=== PATIENT | female | born 1950 | race Caucasian/White ===

== ENCOUNTER 2023-10-25 16:01 | Inpatient (IN) | payer MEDICARE, SELFPAY ==
[2023-10-25] VITALS (23 sets, daily range): BP systolic 111–124; BP diastolic 61–76; PULSE 80–94; RESP 15–29; TEMP 36.8–37.1; O2SAT 84–97; BMI 26.3; BMI 26.6
--- NOTE | 2023-10-25 16:35 | ECG_ITS ---
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
--- NOTE | 2023-10-25 16:37 | ED_ITS ---
HPI - General Adult General Chief complaint: Altered Mental Status Stated complaint: Abnormal Labs Time Seen by Provider: 10/25/23 16:03 Source: family Mode of arrival: walk-in Limitations: altered mental status History of Present Illness HPI narrative: Patient is a 73-year-old female who presents to the emergency department with her for the evaluation of a 2-week history of illness. Both the patient and her provide the history. Patient's states she has been intermittently confused, no falls or injuries, no syncope. She is able to answer all questions at initial interview. She has not had any persistent vomiting but at the beginning of course of illness she did have some vomiting and thought she may have norovirus. Her PCP tested her for that and it was negative. She has also been tested for COVID and it was negative. She reports intermittent fevers as high as 100.9 Fahrenheit at home. She had outpatient labs done this morning with [facility] in her PCP office, they were instructed to come to the emergency department. Patient has not had any chest pain although she states she has had some difficulty breathing. She has had no leg swelling, hemoptysis, severe or upper respiratory symptoms or urinary symptoms. She states she feels achy everywhere and has generalized body pain. Related Data Allergies Allergy/AdvReac Type Severity Reaction Status Date / Time ivp dye Allergy Uncoded 10/25/23 16:23 latex Allergy Uncoded 10/25/23 16:23 Review of Systems ROS Constitutional Reports: fever; Denies: chills Eyes Denies: change in vision Ears, nose, mouth, and throat Denies: throat pain or nasal congestion Cardiovascular Denies: chest pain Respiratory Reports: shortness of breath; Denies: cough Gastrointestinal Reports: nausea and vomiting; Denies: abdominal pain or diarrhea Genitourinary Denies: painful urination Musculoskeletal Denies: back pain or neck pain Integumentary/Breast Denies: rash Neurological Denies: headache Hematologic/Lymphatic Denies: easy bruising or easy bleeding [facility] Medical History (Updated 10/25/23 @ 19:30 by DAMIEN Sanabria) High cholesterol ?E78.00 - Pure hypercholesterolemia, unspecified (ICD-10) Arthritis ?M19.90 - Unspecified osteoarthritis, unspecified site (ICD-10) IBS (irritable bowel syndrome) ?K58.9 - Irritable bowel syndrome without diarrhea (ICD-10) Shingles ?B02.9 - Zoster without complications (ICD-10) Social History Smoking status: Never smoker Exam Narrative Exam Narrative: Gen.: Awake, alert, in no distress Head: Normocephalic, atraumatic ENT: Moist mucous membranes Respiratory: No respiratory distress, lungs clear bilaterally Cardio: Regular rate and rhythm Gastrointestinal: Abdomen is soft, nondistended and nontender to palpation Extremities: Moves extremities equally, no pedal edema Psych: Normal mood and affect Neuro: No focal neuro deficit Skin: Warm, dry, intact Constitutional Vital Signs, click to edit/add: Last Vital Signs Temp 98.7 F 10/25/23 16:12 Pulse 83 10/25/23 17:50 Resp 20 10/25/23 18:50 BP 123/71 10/25/23 18:04 Pulse Ox 95 10/25/23 18:50 O2 Del Method Room Air 10/25/23 16:12 Course Vital Signs Vital signs: Vital Signs Temperature 98.7 F 10/25/23 16:12 Pulse Rate 83 10/25/23 16:12 Respiratory Rate 16 10/25/23 16:12 Blood Pressure 119/61 10/25/23 16:12 Pulse Oximetry 97 10/25/23 16:12 Oxygen Delivery Method Room Air 10/25/23 16:12 Temperature 98.7 F 10/25/23 16:12 Pulse Rate 83 10/25/23 17:50 Respiratory Rate 20 10/25/23 18:50 Blood Pressure 123/71 10/25/23 18:04 Pulse Oximetry 95 10/25/23 18:50 Oxygen Delivery Method Room Air 10/25/23 16:12 Medical Decision Making MDM Narrative Medical decision making narrative: Lab studies show the patient has elevated white blood cell count, elevated CRP and sed rates, low sodium and potassium with normal lactic acid and urine specimen. CT of the brain and chest x-ray are unremarkable. Patient with blood cultures obtained, respiratory panel is negative. Patient with stable vital signs in the ER. She is admitted for antibiotics until blood cultures result in addition to IV fluids and potassium correction. I discussed with Dr. Hilton For admission. Patient admitted for observation. Stable at time of admission. Medical Records Medical records reviewed: Yes I reviewed the patient's medical records Lab Data Lab results reviewed: Yes I reviewed the patient's lab results Labs: Lab Results 10/25/23 10/25/23 10/25/23 Range/Units 16:50 16:52 17:57 WBC 19.5 H (4.0-11.0) 10^3/uL RBC 4.32 (4.20-5.40) 10^6/uL Hgb 13.3 (12.0-16.0) g/dL Hct 38.9 (36.0-48.0) % MCV 90.0 (81.0-99.0) fL MCH 30.8 (26.7-34.0) pg MCHC 34.2 (29.9-35.2) g/dL RDW 13.7 (11.0-15.0) % Plt Count 270 (150-450) 10^3/uL MPV 9.4 L (9.5-13.5) fL Neut % (Auto) 84.0 H (43.0-75.0) % Lymph % (Auto) 6.9 L (20.5-60.0) % Conway % (Auto) 5.9 (1.7-12.0) % Eos % (Auto) 0.4 L (0.9-7.0) % Baso % (Auto) 0.5 (0.2-2.0) % Neut # (Auto) 16.4 H (1.4-6.5) 10^3/uL Lymph # (Auto) 1.3 (1.2-3.8) 10^3/uL Conway # (Auto) 1.2 H (0.3-0.8) 10^3/uL Eos # (Auto) 0.1 (0.0-0.7) 10^3/uL Baso # (Auto) 0.1 (0.0-0.1) 10^3/uL Abs Immat Gran (auto) 0.44 H (0.00-0.03) 10^3/uL Imm/Tot Granulo (auto) 2.3 H (0.0-0.5) % ESR >130 H (<=30) mm/hr PT 12.6 H (9.0-11.6) sec INR 1.20 VBG pH 7.496 H (7.330-7.430) VBG pCO2 34.8 L (40.0-52.0) mmHg Sodium 127 L (136-145) mmol/L Potassium 2.7 L* (3.5-5.1) mmol/L Chloride 90 L (98-107) mmol/L Carbon Dioxide 27.2 (21.0-32.0) mmol/L Anion Gap 12.5 BUN 13.0 (7.0-18.0) mg/dL Creatinine 0.87 (0.55-1.02) mg/dL Est GFR ( Amer) >60 (>=60) Est GFR (Non-Af Amer) >60 (>=60) BUN/Creatinine Ratio 14.9 Glucose 105 (74-106) mg/dL Lactate 1.3 (0.4-2.0) mmol/L Calcium 8.6 (8.5-10.1) mg/dL Magnesium 2.1 (1.8-2.4) mg/dL Total Bilirubin 2.4 H (0.2-1.0) mg/dL AST 46 H (15-37) U/L ALT 70 H (14-59) U/L Alkaline Phosphatase 220 H (46-116) U/L Troponin I High Sens <4.0 L (4.0-51.3) pg/mL C-Reactive Protein 39.98 H (<=0.50) mg/dL Total Protein 7.2 (6.4-8.2) g/dL Albumin 2.3 L (3.4-5.0) g/dL Globulin 4.9 g/dL Albumin/Globulin Ratio 0.5 TSH 2.369 (0.358-3.740) uIU/mL Urine Color Yellow (YELLOW) Urine Clarity Clear (CLEAR) Urine pH 5.5 (5.0-9.0) Ur Specific [place] 1.010 (1.005-1.025) Urine Protein Negative (NEG/TRACE) mg/dL Urine Glucose (UA) Negative (NEGATIVE) mg/dL Urine Ketones 15 A (NEGATIVE) mg/dL Urine Occult Blood Trace-i (NEGATIVE) Urine Nitrite Negative (NEGATIVE) Urine Bilirubin Negative (NEGATIVE) Urine Urobilinogen 1.0 (0.2-1.0) EU/dL Ur Leukocyte Esterase Negative (NEGATIVE) Urine RBC 0-2 (0-2) #/HPF Urine WBC 0-2 A (NONE SEEN) #/HPF Ur Squamous Epith Cells Few A (NONE/RARE) #/LPF Ur Transition Epith Cell Rare A (NONE SEEN) #/LPF Urine Crystals None seen (None Seen) #/HPF Urine Bacteria None seen (NONE SEEN) #/HPF Urine Casts None seen (NONE SEEN) #/LPF Urine Mucus Trace A (NONE SEEN) Adenovirus (PCR) Not detected (NOT DETECTE) C. pneumoniae DNA (PCR) Not detected (NOT DETECTE) Coronavirus Type OC43 Not detected (NOT DETECTE) Coronavirus Type HKU1 Not detected (NOT DETECTE) Coronavirus Type 229E Not detected (NOT DETECTE) Coronavirus Type NL63 Not detected (NOT DETECTE) Human Metapneumovir PCR Not detected (NOT DETECTE) M. pneumoniae (PCR) Not detected (NOT DETECTE) Parainfluenza PCR Not detected (NOT DETECTE) Parainfluenza 2 (PCR) Not detected (NOT DETECTE) Parainfluenza 3 (PCR) Not detected (NOT DETECTE) Parainfluenza 4 (PCR) Not detected (NOT DETECTE) RSV Antigen Not detected (NOT DETECTE) RSV (RT-PCR) Not detected (NOT DETECTE) Entero/Rhino (PCR) Not detected (NOT DETECTE) SARS-CoV-2 (PCR) Not detected (NOT DETECTE) Bordetella pertussis (PCR) Not detected (NOT DETECTE) B parapertussis DNA PCR Not detected (NOT DETECTE) Influenza Type A (PCR) Not detected (NOT DETECTE) Influenza Type B (PCR) Not detected (NOT DETECTE) Imaging Data CT scan - head: Attestation: I have reviewed the pertinent imaging results. Radiologist's impression: ITS Impressions Chest X-Ray 10/25/23 17:10 IMPRESSION: No acute pulmonary disease. Electronically authenticated by: SAYRA PAYNE Date: 10/25/2023 17:[address] 10/25/23 17:10 IMPRESSION: No CT evidence of acute intracranial abnormality. If there is clinical concern for acute brain parenchymal pathology, consider MRI for further evaluation. Mild cerebral volume loss. Electronically authenticated by: ARIADNA LUCAS Date: 10/25/2023 17:31 ECG Data Attestation: I personally reviewed and interpreted this ECG as follows: (Normal sinus rhythm at a rate of 87, minimal ST depression with no acute ST elevation or ectopy. EKG reviewed by attending physician) Discharge Plan Discharge Chief Complaint: Altered Mental Status Patient Disposition: Admitted as Observation Time of Disposition Decision: 19:30 Referrals: ISABEL CRYSTAL [Primary Care Provider] - 1 week
[2023-10-25] MEDS: 0.9 % SODIUM CHLORIDE 1,000 ML 1000 ML IV (16:54)
[2023-10-25 17:09] LABS: Basophils Absolute Auto 0.1 10^3/uL (0.0-0.1); Basophils Percent Auto 0.5 % (0.2-2.0); Eosinophils Absolute Auto 0.1 10^3/uL (0.0-0.7); Eosinophils Percent Auto 0.4 % (0.9-7.0); Hematocrit 38.9 % (36.0-48.0); Hemoglobin 13.3 g/dL (12.0-16.0); Immature Granulocytes Abs Auto 0.44 10^3/uL (0.00-0.03); Immature Granulocytes Pct Auto 2.3 % (0.0-0.5); Lymphocytes Absolute Auto 1.3 10^3/uL (1.2-3.8); Lymphocytes Percent Auto 6.9 % (20.5-60.0); Mean Corpuscular HGB Conc 34.2 g/dL (29.9-35.2); Mean Corpuscular Hemoglobin 30.8 pg (26.7-34.0); Mean Platelet Volume 9.4 fL (9.5-13.5); Monocytes Absolute Auto 1.2 10^3/uL (0.3-0.8); Monocytes Percent Auto 5.9 % (1.7-12.0); Neutrophils Absolute Auto 16.4 10^3/uL (1.4-6.5); Platelet Count 270 10^3/uL (150-450); Red Blood Count 4.32 10^6/uL (4.20-5.40); Red Cell Distribution Width 13.7 % (11.0-15.0); White Blood Count 19.5 10^3/uL (4.0-11.0)
--- NOTE | 2023-10-25 17:10 | XR_ITS ---
The [address] [address] Patient Name: DIVYA ARRIAGA MRN: [id number] date: 1950 Sex: F Assigned Patient Location: ER Current Patient Location: Accession/Order Number: [id number] Exam Date: 10/25/2023 17:00 Report Date: 10/25/2023 17:35 At the request of: HANNAH TROY Procedure: XR chest 1V EXAM: XR chest 1V TECHNIQUE: Single AP view chest HISTORY: Altered COMPARISON: None. FINDINGS: The heart and mediastinum are unremarkable. There is linear atelectasis and/or scarring the left lower lung field. No acute consolidation. Degenerative changes are seen of the thoracic spine. XR/XR chest 1V IMPRESSION: No acute pulmonary disease. Electronically authenticated by: SAYRA PAYNE Date: 10/25/2023 17:35
--- NOTE | 2023-10-25 17:10 | CT_ITS ---
The [address] [address] Patient Name: DIVYA ARRIAGA MRN: [id number] date: 1950 Sex: F Assigned Patient Location: ER Current Patient Location: ER Accession/Order Number: [id number] Exam Date: 10/25/2023 17:00 Report Date: 10/25/2023 17:31 At the request of: HANNAH TROY Procedure: CT head/brain wo con EXAM: CT head/brain wo con HISTORY: Altered mental status. COMPARISON: None. TECHNIQUE: Axial CT scans through the head were obtained without IV contrast administration. Dose reduction techniques were achieved by using: automated exposure control and/or adjustment of mA and /or kV according to patient size and/or use of iterative reconstruction technique. FINDINGS: There is no evidence of acute intracranial hemorrhage or abnormal extra-axial fluid collection. No mass effect or midline shift is seen. There is no evidence of large acute territorial infarction. There is no hydrocephalus. Mild enlarged cortical sulci, consistent with age appropriate cerebral atrophy. To the limit of CT, the posterior fossa appears unremarkable. No definite acute fracture is identified. Soft tissues are unremarkable. The visualized orbits show no abnormality. The visualized paranasal sinuses show no air-fluid level. Mastoid air cells are clear. CT/CT head/brain wo con IMPRESSION: No CT evidence of acute intracranial abnormality. If there is clinical concern for acute brain parenchymal pathology, consider MRI for further evaluation. Mild cerebral volume loss. Electronically authenticated by: ARIADNA LUCAS Date: 10/25/2023 17:31
[2023-10-25 17:16] LABS: pH VBG 7.496 (7.330-7.430)
[2023-10-25 17:17] LABS: PCO2 VBG 34.8 mmHg (40.0-52.0)
[2023-10-25 17:20] LABS: Internal Control Within Normal Limits; Respiratory Syncytial Virus Not Detected (NOT DETECTE)
[2023-10-25 17:20] LABS: Erythrocyte Sedimentation Rate >130 mm/hr (<=30); Prothrombin Time 12.6 sec (9.0-11.6)
[2023-10-25 17:25] LABS: Lactate/Lactic Acid 1.3 mmol/L (0.4-2.0)
[2023-10-25 17:25] LABS: Adenovirus NOT DETECTED (NOT DETECTE); Bordetella parapertussis NOT DETECTED (NOT DETECTE); Coronavirus 229E NOT DETECTED (NOT DETECTE); Coronavirus HKU1 NOT DETECTED (NOT DETECTE); Coronavirus NL63 NOT DETECTED (NOT DETECTE); Coronavirus OC43 NOT DETECTED (NOT DETECTE); Human Metapneumovirus NOT DETECTED (NOT DETECTE); Human Rhinovirus/Enterovirus NOT DETECTED (NOT DETECTE); Influenza A NOT DETECTED (NOT DETECTE); Influenza B NOT DETECTED (NOT DETECTE); Mycoplasma pneumoniae NOT DETECTED (NOT DETECTE); Parainfluenza Virus 1 NOT DETECTED (NOT DETECTE); Parainfluenza Virus 2 NOT DETECTED (NOT DETECTE); Parainfluenza Virus 3 NOT DETECTED (NOT DETECTE); Parainfluenza Virus 4 NOT DETECTED (NOT DETECTE); Respiratory Syncytial Virus NOT DETECTED (NOT DETECTE); SARS-CoV-2 NOT DETECTED (NOT DETECTE)
[2023-10-25 17:26] LABS: Alanine Aminotransferase 70 U/L (14-59); Albumin Globulin Ratio 0.5; Albumin Level 2.3 g/dL (3.4-5.0); Alkaline Phosphatase 220 U/L (46-116); Anion Gap 12.5; Aspartate Amino Transferase 46 U/L (15-37); BUN Creatinine Ratio 14.9; Bilirubin Total 2.4 mg/dL (0.2-1.0); Calcium 8.6 mg/dL (8.5-10.1); Carbon Dioxide 27.2 mmol/L (21.0-32.0); Chloride 90 mmol/L (98-107); Estimated GFR (African America >60 (>=60); Estimated GFR (Non-African Ame >60 (>=60); Globulin 4.9 g/dL; Glucose 105 mg/dL (74-106); Magnesium 2.1 mg/dL (1.8-2.4); Sodium 127 mmol/L (136-145); Total Protein 7.2 g/dL (6.4-8.2)
[2023-10-25 17:31] LABS: Thyroid Stimulating Hormone 2.369 uIU/mL (0.358-3.740)
[2023-10-25 17:40] LABS: Potassium 2.7 mmol/L (3.5-5.1)
[2023-10-25 17:41] LABS: Troponin I High Sensitivity <4.0 pg/mL (4.0-51.3)
[2023-10-25 18:28] LABS: Bilirubin Urine NEGATIVE (NEGATIVE); Blood Urine TRACE-I (NEGATIVE); Clarity Urine CLEAR (CLEAR); Color Urine YELLOW (YELLOW); Glucose Urine UA NEGATIVE (NEGATIVE); Ketones Urine 15 mg/dL (NEGATIVE); Leukocyte Esterase Urine NEGATIVE (NEGATIVE); Nitrite Urine NEGATIVE (NEGATIVE); Protein Urine NEGATIVE (NEG/TRACE); pH Urine 5.5 (5.0-9.0)
[2023-10-25] MEDS: POTASSIUM BICARBONATE/CIT 25 MEQ TABLET EFF 50 MEQ PO (18:30)
[2023-10-25 18:32] LABS: Urine Microscopic Indicated YES
[2023-10-25 18:34] LABS: C Reactive Protein 39.98 mg/dL (<=0.50)
[2023-10-25 18:40] LABS: Bacteria Urine NONE SEEN #/HPF (NONE SEEN); Cast Seen? NONE SEEN #/LPF (NONE SEEN); Crystals Seen? None Seen #/HPF (None Seen); Mucus Urine TRACE (NONE SEEN); RBC Urine 0-2 #/HPF (0-2); Squamous Epithelial Cell Urine FEW #/LPF (NONE/RARE); Transitional Epi Cells Urine RARE #/LPF (NONE SEEN); WBC Urine 0-2 #/HPF (NONE SEEN)
[2023-10-25] MEDS: CEFTRIAXONE 1,000 MG in 0.9 % SODIUM CHLORIDE 50 ML 100 MG IV (19:17)
[2023-10-25] MEDS: POTASSIUM CHLORIDE IN 0.9%NACL 1,000 ML 250 MEQ IV (19:54)
[2023-10-26] VITALS (13 sets, daily range): BP systolic 115–134; BP diastolic 66–72; PULSE 74–100; RESP 16–20; TEMP 36.7–37.1; O2SAT 92–95
[2023-10-26] MEDS: ROPINIROLE HCL 1 MG TABLET 2 MG PO ×2 (01:46→22:47)
[2023-10-26] MEDS: MELOXICAM 7.5 MG TABLET 15 MG PO (01:46)
[2023-10-26] MEDS: ATORVASTATIN CALCIUM 20 MG TABLET PO (01:46)
[2023-10-26] MEDS: 0.9 % SODIUM CHLORIDE 1,000 ML 100 ML IV ×3 (01:47→22:46)
[2023-10-26 04:53] LABS: Basophils Absolute Auto 0.1 10^3/uL (0.0-0.1); Basophils Percent Auto 0.3 % (0.2-2.0); Eosinophils Absolute Auto 0.2 10^3/uL (0.0-0.7); Eosinophils Percent Auto 0.9 % (0.9-7.0); Hematocrit 32.9 % (36.0-48.0); Immature Granulocytes Abs Auto 0.38 10^3/uL (0.00-0.03); Lymphocytes Absolute Auto 1.1 10^3/uL (1.2-3.8); Mean Corpuscular HGB Conc 33.4 g/dL (29.9-35.2); Mean Corpuscular Hemoglobin 30.6 pg (26.7-34.0); Mean Corpuscular Volume 91.4 fL (81.0-99.0); Mean Platelet Volume 9.3 fL (9.5-13.5); Monocytes Absolute Auto 1.3 10^3/uL (0.3-0.8); Monocytes Percent Auto 6.8 % (1.7-12.0); Neutrophils Absolute Auto 15.6 10^3/uL (1.4-6.5); Platelet Count 245 10^3/uL (150-450); Red Cell Distribution Width 14.1 % (11.0-15.0); White Blood Count 18.6 10^3/uL (4.0-11.0)
[2023-10-26 05:25] LABS: PROCALCITONIN 1.39 ng/mL (0.00-0.50)
[2023-10-26 05:29] LABS: Alanine Aminotransferase 65 U/L (14-59); Albumin Globulin Ratio 0.4; Albumin Level 1.6 g/dL (3.4-5.0); Alkaline Phosphatase 179 U/L (46-116); Anion Gap 10.4; Aspartate Amino Transferase 52 U/L (15-37); BUN Creatinine Ratio 15.5; Bilirubin Total 1.7 mg/dL (0.2-1.0); Calcium 7.8 mg/dL (8.5-10.1); Carbon Dioxide 22.5 mmol/L (21.0-32.0); Chloride 100 mmol/L (98-107); Estimated GFR (African America >60 (>=60); Estimated GFR (Non-African Ame >60 (>=60); Glucose 89 mg/dL (74-106); Potassium 3.9 mmol/L (3.5-5.1); Sodium 129 mmol/L (136-145); Total Protein 5.6 g/dL (6.4-8.2)
[2023-10-26] MEDS: DICYCLOMINE HCL 10 MG CAPSULE PO ×2 (10:07→22:46)
[2023-10-26] MEDS: OMEPRAZOLE 40 MG CAPSULE.DR PO (10:07)
[2023-10-26] MEDS: DULOXETINE HCL 30 MG CAPSULE.DR PO ×2 (10:07→22:46)
--- NOTE | 2023-10-26 10:56 | CT_ITS ---
The [address] [address] Patient Name: DIVYA ARRIAGA MRN: [id number] date: 1950 Sex: F Assigned Patient Location: MS Current Patient Location: [place] Accession/Order Number: [id number] Exam Date: 10/26/2023 12:30 Report Date: 10/26/2023 13:26 At the request of: JEANNETTE COLBERT Procedure: CT abdomen pelvis wo con EXAM: CT abdomen pelvis wo con HISTORY: Transaminitis/leukocytosis/diarrhea COMPARISON: No prior CT. Chest x-ray 10/25/2023. TECHNIQUE: CT abdomen pelvis without IV contrast. Water soluble oral contrast given. FINDINGS: Lower chest: Small amount of airspace density pleural density lower chest bilaterally most consistent with areas of atelectasis and either pleural thickening or small effusions. Not well demonstrated on x-ray. ABDOMEN: Large mass left lobe of the liver producing convex margin anteriorly which are 6.4 cm transverse 4.5 cm AP diameter. Color lesion dome of the liver centrally 1.7 cm. Other lesions not excluded on this noncontrast study. Normal-appearing fluid-filled gallbladder. No biliary dilatation. Normal-appearing adrenal glands, pancreas spleen. Accessory splenic tissue medially No ascites or free fluid. Small periaortic lymph nodes without adenopathy. No mesenteric mass. Normal noncontrast appearance kidneys without mass or hydronephrosis or calcification Stomach appears prominent contains significant retained oral contrast with findings suggesting thickening of the distal body/antrum. Mass lesion in this area not excluded. Oral contrast without of the stomach seen throughout the small bowel without dilatation. Contrast within the colon to the left lower quadrant. Mild colonic wall thickening is nonspecific but can be seen with colitis. No pericolonic fluid or stranding. Diverticulosis involving the pelvic colon with questionable mild adjacent stranding/inflammation. Bowel wall appears to be quite thickened throughout the pelvic colon. No extraluminal gas or fluid, no pneumatosis. Normal diameter appendix right lower quadrant without surrounding inflammation. Pelvis:: Findings as noted above. No free fluid. No uterine or adnexal pathology. Minimal amount of fluid in the bladder. MUSCULOSKELETAL: Diffuse degenerative disc disease lower thoracic and lumbar spine without focal bone lesion. There are facet degenerative joint disease especially L5-S1. Anterolisthesis L5 without pars defects felt to be degenerative. CT/CT abdomen pelvis wo con IMPRESSION: 1. Liver lesions including a dominant lesion left lobe 6.4 cm maximum and a small lesion dome of the liver. Indeterminate on this noncontrast study. Differential diagnosis includes metastasis, benign lesion such as hemangiomas or primary liver malignancy. Patient is allergic to IV contrast so contrast-enhanced CT involves some risk. Recommend ultrasound evaluation possibly MRI. Ultimately lesion may need to undergo image guided biopsy unless hemangiomas or other benign lesion felt to be present. 2. Colon abnormalities with bowel wall thickening which may reflect colitis although is nonspecific. Abnormalities in the pelvic colon could reflect diverticulitis. Bowel wall does appear to be thickened diffusely. 3. Significant retained oral contrast within the stomach with possible wall thickening distal body and antrum. Could also be due to peristalsis. Consider upper endoscopy. Electronically authenticated by: CHARITY DE LUNA Date: 10/26/2023 13:26
--- NOTE | 2023-10-26 10:59 | CM.NOTE ---
Rounds made with Dr. Camara. Awaiting further plan of care with MARCI Fonseca and results from further testing.
--- NOTE | 2023-10-26 11:01 | CM.NOTE ---
Medicare Outpatient Observation Notice reviewed and signed by Twila. No questions offered. Copy to chart, original to Ms. Ceballos.
[2023-10-26 11:43] LABS: Ammonia <10 umol/L (11-32)
--- NOTE | 2023-10-26 12:37 | P.HP_ITS ---
<Statement entered by Gopi Camara MD - 10/26/23 19:05> This documentation has been reviewed and approved. Was seen and evaluated this morning. Patient was resting comfortably at the time. No significant complaints. Agree with input and findings by nurse practitioner Additional diagnosis would include anemia. Possibly delusional-possible acute blood loss-May need to check stool for occult blood. Also check stool samples for possible infectious etiology. Agree with changing patient to inpatient status since medically necessary treatment will span 2 midnights.. H&P: HPI History of Present Illness Chief complaint: Abnormal Labs, Dehydration, Hypokalemia Narrative: 10/26/23 1100 This is a 73-year-old female patient with a past medical history as outlined below including hyperlipidemia, IBS, GERD, depression, and arthritis; who presented to the ED last night on the advice of her PCP after outpatient labs were abnormal. The patient reports a 2-week course of not feeling well. She notes initially she was having frequent formed stools and 1 small episode of emesis. She then developed a very poor appetite and had frequent chills. Her temperature cassidy to 100.9 during the last week but her fever has been intermittent. She has noted that her stool is yellowish but not floaty or having a foul odor. She had diarrhea x 1 two days ago, but otherwise denies diarrhea. She also reports intermittent right upper quadrant and suprapubic abdominal pain throughout the last 1-2 weeks. She denies chest pain, melena or hematochezia. She notes that she has been intermittently confused at times. She is normally very active and organized. Her PCP zoe outpatient labs and noted that she had significant leukocytosis and abnormal electrolytes and sent the patient to the ED for further evaluation. Workup in the ED revealed leukocytosis (19.5), hyponatremia (127), hypokalemia (2.7), and transaminitis (bili 2.4, AST 46, ALT 70, alk phos 220). In addition to her inflammatory markers were elevated, ESR (greater than 130), CRP (39.98) and her procalcitonin was elevated in the sepsis range (1.39). Lactic acid was within normal limits (1.3). All other labs were unremarkable including respiratory panel and urinalysis. Chest x-ray revealed no acute disease. A CT of the head was obtained which showed no acute intracranial abnormality. She was treated with Rocephin IVPB x 1 dose, but no foci of infection was identified in the ED. In addition she was given IV fluids and KCl supplementation. She was admitted last night to the hospitalist service in observation for electrolyte derangements and leukocytosis without source of infection identified. At the time of my exam the patient is resting comfortably in bed. She reports feeling okay , and is stating she feels like she could go home. Unfortunately her labs indicate significant infection of unknown etiology. No abdominal workup was done in the ED. We will obtain a CTA of the abdomen and pelvis with oral contrast only. (The patient has an IV contrast anaphylactic allergy contraindicating IV contrast dye). In addition we will add an ammonia level, GI panel stool study, and a lipase. The patient reports that she still has her gallbladder. During my visit exam I was able to reproduce a small focal area of exquisite tenderness to the right upper quadrant, just right of midline. No rebound or guarding was noted. Her suprapubic tenderness has resolved and cannot be reproduced. She is c/o of new onset acid reflux after eating, but no nausea. We have very low threshold to convert this to an inpatient admission pending clinical course and CT abdomen results. She has been afebrile since admission and does not appear toxic. ADDENDUM 1350: CT Abdomen/Pelvis resulted w/ liver lesions, largest is 6.4 cm at maximum. Thickening of the distal stomach w/ delayed emptying and also nonspecific colonic thickening. Follow up US of the liver is recommended as the pt cannot take IV contrast d/t allergy. RUQ US ordered. The pt was informed of the CT findings and follow up studies, concern for possible malignancy. ADDENDUM 1430: Discussed the CT findings with Dr Varela, Oncologist. He recommends obtaining cancer marker studies (CEA, CA19-9, AFP). He also recommends treating with Cipro x 7 days despite a lack of infectious source d/t the suspicion for malignancy and infectious S/S. In addition, he wants to see the pt in his clinic next Tuesday and he will expedite obtaining a liver biopsy and likely upper and lower GI scopes as there is concern for GI primary malignancy. We will admit the pt as an inpatient for continued medically necessary hospital care as the US is pending and repeat lab work will be done in the AM. Review of Systems ROS Status of ROS 10 or more systems reviewed and unremark able except as noted in history and below [facility] Medical History (Updated 10/26/23 @ 13:37 by Marian Baugh NP) GERD (gastroesophageal reflux disease) ?K21.9 - Gastro-esophageal reflux disease without esophagitis (ICD-10) RLS (restless legs syndrome) ?G25.81 - Restless legs syndrome (ICD-10) Depression ?F32.A - Depression, unspecified (ICD-10) Lateral meniscus tear ?S83.289A - Other tear of lateral meniscus, current injury, unspecified knee, initial encounter (ICD-10) Tonsillectomy planned High cholesterol ?E78.00 - Pure hypercholesterolemia, unspecified (ICD-10) Arthritis ?M19.90 - Unspecified osteoarthritis, unspecified site (ICD-10) IBS (irritable bowel syndrome) ?K58.9 - Irritable bowel syndrome without diarrhea (ICD-10) Shingles ?B02.9 - Zoster without complications (ICD-10) Surgical History (Updated 10/25/23 @ 21:00 by Octavio Bolton) Hx of appendectomy ?Z90.49 - Acquired absence of other specified parts of digestive tract (ICD- 10) Social History Smoking status: Never smoker Highest level of school completed/degree received: high school graduate Meds Home Medications and Allergies Home Medications Medication Instructions Recorded Confirmed Type atorvastatin 20 mg tablet 20 mg PO .PM 10/25/23 10/25/23 History dicyclomine 10 mg capsule 10 mg PO BID 10/25/23 10/25/23 History duloxetine 30 mg capsule,delayed 30 mg PO BID 10/25/23 10/25/23 History release meloxicam 15 mg tablet 15 mg PO .PM 10/25/23 10/25/23 History pantoprazole 40 mg tablet,delayed 40 mg PO .AM 10/25/23 10/25/23 History release ropinirole 2 mg tablet 2 mg PO .HS 10/25/23 10/25/23 History tizanidine 4 mg tablet 4 mg PO Q12H PRN MUSCLE SPASMS 10/25/23 10/25/23 History Allergies Allergy/AdvReac Type Severity Reaction Status Date / Time ivp dye Allergy Uncoded 10/25/23 22:42 latex Allergy Uncoded 10/25/23 22:42 Exam Narrative Exam Narrative: The pt is oriented, but frequently loses track of our conversation and requires redirection/review to complete her thoughts Constitutional Vital Signs, click to edit/add: Last Vital Signs Temp 98.3 F 10/26/23 11:51 Pulse 78 10/26/23 11:58 Resp 20 10/26/23 11:51 BP 120/68 10/26/23 11:51 Pulse Ox 92 L 10/26/23 11:51 O2 Del Method Room Air 10/26/23 11:51 Common normals: no apparent distress, oriented x3, alert and well nourished General appearance: cooperative Orientation/consciousness: Yes awake HENMT Common normals: normocephalic, head/scalp atraumatic, hearing grossly normal bilaterally, external nose normal and moist oral mucous membranes Eye Common normals: PERRL, EOMs intact bilaterally, conjunctivae normal and no scleral icterus Alignment: alignment normal Eyelid: eyelids normal Neck & C-Spine Common normals: full ROM, supple and no JVD Chest Common normals: inspection of chest normal Chest: symmetrical chest wall rise Respiratory Common normals: normal respiratory effort, no retractions, no use of accessory muscles and clear to auscultation bilaterally Effort & inspection: able to speak in complete sentences Cardio Common normals: no JVD, regular rate, regular rhythm, S1 normal heart sound, S2 normal heart sound, no gallops, no clicks, no rub and peripheral pulses 2+ throughout Heart sounds: murmur (HSM 3/6) GI Common normals: Normal to inspection, nondistended, normoactive bowel sounds present, soft to palpation, no hepatosplenomegaly, no masses and no bruits Palpation: tender Details: RUQ (Just right of midline. Exquisitely tender, but no rebound or guarding) Bladder/kidney exam: bladder normal to palpation Back & Pelvis Common normals: thoracic and lumbar spine normal to inspection Extremity Common normals: normal capillary refill and no pedal edema General: normal exam except as noted; no clubbing and no cyanosis Neuro [place] Coma Scale: GCS not evaluated Common normals: CN's II-XII intact bilaterally, moves all extremities, no focal motor deficits and no sensory deficits noted Speech: speech normal Motor exam: strength 5/5 throughout Psych Common normals: mental status grossly normal, affect normal and activity/motor behavior normal Thought process: disorganized (at times) Memory/cognition: memory grossly intact Insight: fair Judgement: fair Results Labs Labs: Short CBC 10/25/23 10/26/23 Range/Units 16:50 04:30 WBC 19.5 H 18.6 H (4.0-11.0) 10^3/uL Hgb 13.3 11.0 L (12.0-16.0) g/dL Hct 38.9 32.9 L (36.0-48.0) % Plt Count 270 245 (150-450) 10^3/uL BMP 10/25/23 10/26/23 16:50 04:30 Sodium 127 L 129 L Potassium 2.7 L* 3.9 Chloride 90 L 100 Carbon Dioxide 27.2 22.5 BUN 13.0 11.0 Creatinine 0.87 0.71 Glucose 105 89 Calcium 8.6 7.8 L Liver Function 10/25/23 10/26/23 Range/Units 16:50 04:30 Total Bilirubin 2.4 H 1.7 H (0.2-1.0) mg/dL AST 46 H 52 H (15-37) U/L ALT 70 H 65 H (14-59) U/L Alkaline Phosphatase 220 H 179 H (46-116) U/L Albumin 2.3 L 1.6 L (3.4-5.0) g/dL Urine 10/25/23 Range/Units 17:57 Urine Color Yellow (YELLOW) Urine Clarity Clear (CLEAR) Urine pH 5.5 (5.0-9.0) Ur Specific [place] 1.010 (1.005-1.025) Urine Protein Negative (NEG/TRACE) mg/dL Urine Glucose (UA) Negative (NEGATIVE) mg/dL ABG ABG results: 10/25/23 16:50 VBG pH 7.496 H VBG pCO2 34.8 L Pulse Oximetry Attestation: I have reviewed the pertinent pulse oximetry results. ECG Attestation: ?I have reviewed the pertinent ECG results. Interpretation: Sinus rhythm Minimal ST depression Nonspecific ST and T wave abnormality Borderline ECG No previous ECG available for comparison Imaging Chest x-ray: Attestation: I have reviewed the pertinent imaging results. Radiologist's impression: IMPRESSION: No acute pulmonary disease. CT scan - head: Attestation: I have reviewed the pertinent imaging results. Radiologist's impression: IMPRESSION: No CT evidence of acute intracranial abnormality. If there is clinical concern for acute brain parenchymal pathology, consider MRI for further evaluation. Mild cerebral volume loss. Assessment and Plan Assessment and Plan (1) Leukocytosis: Assessment and Plan: Acute * Adm observation * Low threshold to convert to inpatient pending abdominal imaging * Unclear etiology/source of leukocytosis in setting of intermittent fevers, elevated inflammatory markers and procalcitonin * CXR clear * UA unremarkable * BC x 2 drawn in ED - pending * Pt has remained afebrile since admission, but reports temp of 100.9 earlier this week * Rocephin x 1 given in ED. No further doses for now pending identification of infectious source * CBC, PCT, ESR, CRP daily (2) Transaminitis: Assessment and Plan: Acute * Unclear etiology * Differential includes: Acute cholecystitis vs acute hepatitis vs post viral syndrome vs medication SE (atorvastatin, meloxicam) vs sepsis (unclear source) vs other * Acute hepatitis panel ordered * GI stool panel ordered * Hold home statin and meloxicam for now * CT abdomen/pelvis w/ PO contrast ordered - RUQ tenderness * Consider follow up US RUQ and/or HIDA scan pending results * Consider Gen Surgery c/s pending results * Lipase added on to AM labs - unremarkable * Add ammonia level * CMP daily (3) Acute hypokalemia: Assessment and Plan: Acute * K+ 2.7 in ED * Repleted with KCL IV and PO in the ED [employer] * Resolved - K+ 3.9 on AM labs today * Unclear etiology. Pt is not on a potassium wasting drug and has had minimal diarrhea/vomiting (4) Hyponatremia: Assessment and Plan: Acute * Mild (127) and asymptomatic vs equivocally symptomatic (i.e. confusion, but this could also be 2/2 infection/sepsis) * Improved after IVF boluses and maintenance fluid overnight * Continue NS IVF at 100/hr for gentle correction of hyponatremia * CMP in AM (5) High cholesterol: Assessment and Plan: Chronic * Hold home statin for now d/t acute transaminitis (6) IBS (irritable bowel syndrome): Assessment and Plan: Chronic * Continue home dicyclomine BID (7) Depression: Assessment and Plan: Chronic * Continue home duloxetine (8) RLS (restless legs syndrome): Assessment and Plan: Chronic * Continue home requip (9) Arthritis: Assessment and Plan: Chronic * Hold home meloxicam for now d/t acute transaminitis (10) GERD (gastroesophageal reflux disease): Assessment and Plan: Chronic * Continue home PPI * Give IVP famotidine x 1 now for persistent HB prior to CT abdomen w/ PO contrast to be ingested
[2023-10-26] MEDS: FAMOTIDINE/PF 20 MG/2 ML VIAL IV (12:41)
--- NOTE | 2023-10-26 13:57 | US_ITS ---
The [address] [address] Patient Name: DIVYA ARRIAGA MRN: [id number] date: 1950 Sex: F Assigned Patient Location: [place] Current Patient Location: [place] Accession/Order Number: [id number] Exam Date: 10/26/2023 16:26 Report Date: 10/26/2023 18:11 At the request of: JEANNETTE COLBERT Procedure: US right upper quadrant EXAM: US right upper quadrant HISTORY: Liver lesions/transaminitis COMPARISON: CT abdomen pelvis wo con Date 10/26/2023 TECHNIQUE: There is right upper quadrant ultrasound is performed. Multiple singh scale and color images are submitted for review. FINDINGS: Abnormal heterogeneous hypoechoic mass is seen in the left hepatic lobe, which measures approximately 8 x 4.8 x 6.9 cm. Additional hypoechoic mass is seen in the right hepatic lobe, which measures approximately 1.2 x 0.8 x 1.3 cm. Malignancy cannot be excluded. MRI of the liver with contrast is recommended for better evaluation. The portal vein is patent with normal hepatopedal flow. The pancreas is poorly visualized due to obscuration by bowel gas. Small layering debris seen within the gallbladder which may represent small sludge. No significant gallbladder wall thickening is seen. The gallbladder wall measures 1.3 mm in thickness. Sonographic Castañeda sign is absent. The common bile duct appears unremarkable, and measures 4.1 mm in diameter. The right kidney measures 12.3 x 4.5 x 4.6 cm and demonstrates normal morphology with normal echotexture. No right hydronephrosis is seen. US/US right upper quadrant IMPRESSION: Abnormal heterogeneous hypoechoic mass is seen in the left hepatic lobe, which measures approximately 8 x 4.8 x 6.9 cm. Additional hypoechoic mass is seen in the right hepatic lobe, which measures approximately 1.2 x 0.8 x 1.3 cm. Malignancy cannot be excluded. MRI of the liver with contrast is recommended for better evaluation. Electronically authenticated by: SUSANNAH HOUSE Date: 10/26/2023 18:11
[2023-10-26] MEDS: CIPROFLOXACIN IN 5 % DEXTROSE 400 MG/200 ML PIGGYBACK 200 MG IV (17:32)
[2023-10-26 22:58] LABS: Adenovirus F 40/41 NOT DETECTED (NOT DETECTE); Astrovirus NOT DETECTED (NOT DETECTE); Campylobacter NOT DETECTED (NOT DETECTE); Cryptosporidium NOT DETECTED (NOT DETECTE); Cyclospora cayetanensis NOT DETECTED (NOT DETECTE); Entamoeba histolytica NOT DETECTED (NOT DETECTE); Enteroaggregative E.coli NOT DETECTED (NOT DETECTE); Enteropathogenic E.coli NOT DETECTED (NOT DETECTE); Enterotoxigenic E. coli NOT DETECTED (NOT DETECTE); Giardia lamblia NOT DETECTED (NOT DETECTE); Norovirus GI/GII NOT DETECTED (NOT DETECTE); Plesiomonas shigelloides NOT DETECTED (NOT DETECTE); Rotavirus A NOT DETECTED (NOT DETECTE); Salmonella NOT DETECTED (NOT DETECTE); Sapovirus NOT DETECTED (NOT DETECTE); Shiga-like toxin-producing E.C NOT DETECTED (NOT DETECTE); Shigella/Enteroinvasive E.coli NOT DETECTED (NOT DETECTE); Vibrio NOT DETECTED (NOT DETECTE); Vibrio cholerae NOT DETECTED (NOT DETECTE); Yersinia enterocolitica NOT DETECTED (NOT DETECTE)
[2023-10-27] VITALS: BP 102/66; PULSE 84; PULSE 87; RESP 16; TEMP 37.3; O2SAT 91
[2023-10-27 02:00] VITALS: PULSE 77
[2023-10-27 04:00] VITALS: BP 109/62; PULSE 69; PULSE 76; RESP 18; TEMP 37; O2SAT 91
[2023-10-27] MEDS: CIPROFLOXACIN IN 5 % DEXTROSE 400 MG/200 ML PIGGYBACK 200 MG IV (04:37)
[2023-10-27 05:03] LABS: Basophils Absolute Auto 0.1 10^3/uL (0.0-0.1); Basophils Percent Auto 0.4 % (0.2-2.0); Eosinophils Absolute Auto 0.2 10^3/uL (0.0-0.7); Eosinophils Percent Auto 1.5 % (0.9-7.0); Hematocrit 32.8 % (36.0-48.0); Hemoglobin 10.6 g/dL (12.0-16.0); Immature Granulocytes Abs Auto 0.19 10^3/uL (0.00-0.03); Immature Granulocytes Pct Auto 1.3 % (0.0-0.5); Lymphocytes Percent Auto 7.3 % (20.5-60.0); Mean Corpuscular HGB Conc 32.3 g/dL (29.9-35.2); Mean Corpuscular Hemoglobin 30.1 pg (26.7-34.0); Mean Corpuscular Volume 93.2 fL (81.0-99.0); Mean Platelet Volume 9.7 fL (9.5-13.5); Monocytes Percent Auto 7.4 % (1.7-12.0); Neutrophils Absolute Auto 11.6 10^3/uL (1.4-6.5); Neutrophils Percent Auto 82.1 % (43.0-75.0); Platelet Count 248 10^3/uL (150-450); Red Blood Count 3.52 10^6/uL (4.20-5.40); Red Cell Distribution Width 14.3 % (11.0-15.0); White Blood Count 14.1 10^3/uL (4.0-11.0)
[2023-10-27 05:14] LABS: Erythrocyte Sedimentation Rate 111 mm/hr (<=30)
[2023-10-27 05:32] LABS: Alanine Aminotransferase 120 U/L (14-59); Albumin Globulin Ratio 0.4; Albumin Level 1.5 g/dL (3.4-5.0); Alkaline Phosphatase 207 U/L (46-116); Anion Gap 11.2; Aspartate Amino Transferase 96 U/L (15-37); BUN Creatinine Ratio 14.5; Bilirubin Total 1.5 mg/dL (0.2-1.0); C Reactive Protein 23.62 mg/dL (<=0.50); Calcium 7.8 mg/dL (8.5-10.1); Carbon Dioxide 21.7 mmol/L (21.0-32.0); Chloride 103 mmol/L (98-107); Estimated GFR (African America >60 (>=60); Estimated GFR (Non-African Ame >60 (>=60); Glucose 91 mg/dL (74-106); Potassium 3.9 mmol/L (3.5-5.1); Sodium 132 mmol/L (136-145); Total Protein 5.5 g/dL (6.4-8.2)
[2023-10-27 06:08] VITALS: PULSE 79
[2023-10-27 06:10] LABS: HBsAg Screen Negative (Negative); HCV Ab Non Reactive (Non Reactive); Hep A Ab, IgM Negative (Negative); Hep B Core Ab, IgM Negative (Negative)
[2023-10-27 08:00] VITALS: PULSE 74
[2023-10-27 09:00] VITALS: BP 119/64; PULSE 79; RESP 118; TEMP 37; O2SAT 98
[2023-10-27 09:01] LABS: A. calcoaceticus-baumannii Cpx NOT DETECTED (NOT DETECTE); Bacteroides fragilis NOT DETECTED (NOT DETECTE); Candida albicans NOT DETECTED (NOT DETECTE); Candida auris NOT DETECTED (NOT DETECTE); Candida glabrata NOT DETECTED (NOT DETECTE); Candida krusei NOT DETECTED (NOT DETECTE); Candida parapsilosis NOT DETECTED (NOT DETECTE); Candida tropicalis NOT DETECTED (NOT DETECTE); Cryptococcus neoformans/gattii NOT DETECTED (NOT DETECTE); Enterobacter cloacae complex NOT DETECTED (NOT DETECTE); Enterobacterales NOT DETECTED (NOT DETECTE); Enterococcus faecalis NOT DETECTED (NOT DETECTE); Enterococcus faecium NOT DETECTED (NOT DETECTE); Haemophilus influenzae NOT DETECTED (NOT DETECTE); Klebsiella aerogenes NOT DETECTED (NOT DETECTE); Klebsiella pneumoniae group NOT DETECTED (NOT DETECTE); Listeria monocytogenes NOT DETECTED (NOT DETECTE); Neisseria meningitidis NOT DETECTED (NOT DETECTE); Proteus spp. NOT DETECTED (NOT DETECTE); Pseudomonas aeruginosa NOT DETECTED (NOT DETECTE); Salmonella spp. NOT DETECTED (NOT DETECTE); Serratia marcescens NOT DETECTED (NOT DETECTE); Staphylococcus epidermidis NOT DETECTED (NOT DETECTE); Staphylococcus lugdunensis NOT DETECTED (NOT DETECTE); Staphylococcus spp. NOT DETECTED (NOT DETECTE); Stenotrophomonas maltophilia NOT DETECTED (NOT DETECTE); Streptococcus agalactiae NOT DETECTED (NOT DETECTE); Streptococcus pneumoniae NOT DETECTED (NOT DETECTE); Streptococcus pyogenes NOT DETECTED (NOT DETECTE); Streptococcus spp. NOT DETECTED (NOT DETECTE)
[2023-10-27] MEDS: OMEPRAZOLE 40 MG CAPSULE.DR PO (09:34)
[2023-10-27] MEDS: DICYCLOMINE HCL 10 MG CAPSULE PO (09:34)
[2023-10-27] MEDS: DULOXETINE HCL 30 MG CAPSULE.DR PO (09:34)
--- NOTE | 2023-10-27 09:36 | CM.NOTE ---
Rounds made with Dr. Camara. CT scan and labs reviewed with Twila. Questions answered by Dr. Camara. Potential discharge later today.
--- NOTE | 2023-10-27 09:37 | P.DS_ITS ---
<Statement entered by Gopi Camara MD - 10/27/23 12:42> This documentation has been reviewed and approved. Patient seen and evaluated this morning at the bedside. Patient does states she feels better than the previous day. Did have 1 episode of diarrhea unable to collect sample. Agree with input and findings provided by nurse practitioner's notations. Will follow-up with my nurse practitioner SANGEETHA Weinberg as well as oncology DS: Providers Provider Date of admission: 10/26/23 17:00 Primary care physician: ISABEL CRYSTAL Discharging clinician: Marian Baugh DS: Diagnosis Discharge Diagnosis (1) Leukocytosis: (2) Transaminitis: (3) Acute hypokalemia: (4) Hyponatremia: (5) High cholesterol: (6) IBS (irritable bowel syndrome): (7) Depression: (8) RLS (restless legs syndrome): (9) Arthritis: (10) GERD (gastroesophageal reflux disease): DS: Summary Hospital Course Hospital Course: The patient was admitted with FUO and multiple abnormal lab values including leukocytosis, transaminitis, elevated inflammatory markers and procalcitonin of unclear etiology. Initial workup in the ED was negative for any acute infectious abnormality, but confirmed lab abnormalities. After admission, a CT of the abdomen was obtained due to the transaminitis. This revealed liver lesions of indeterminate nature, but malignancy cannot be ruled out. Ultrasound of the right upper quadrant was recommended. An ultrasound was obtained and this again noted liver lesions described as abnormal heterogeneous hypoechoic masses, the largest measuring 8 x 4.8 x 6.9 cm. Delayed gastric emptying and diffuse, nonspecific colonic thickening was also noted. As there is significant concern for possible malignant disease, Dr. Varela, oncologist, was contacted by telephone. He recommended the patient's leukocytosis be treated with ciprofloxacin x 7 days despite no known infectious source, as this patient is suspected to be immunocompromised and may have a secondary infection in her liver. The pt remained afebrile throughout her admission in the hospital. In addition, Dr. Varela recommends outpatient follow-up with him next week and he will expedite a liver biopsy and upper and lower endoscopies. Although the patient's laboratory values remain abnormal, her leukocytosis and inflammatory markers did begin to trend down. A GI panel and acute hepatitis panel were both negative. Her transaminitis continues to worsen. We defer to Dr. Varela for outpatient management of this and further referrals as indicated. The patient is to follow-up with Dr. Varela next Tuesday as scheduled and with her PCP within 5 to 7 days. Time Spent with Patient Time attestation: Total time spent providing and/or coordinating discharge services: Time spent: greater than 30 minutes Specific discharge activities: Physical exam, discussion of discharge plan, questions answered. Exam Constitutional Vital Signs, click to edit/add: Last Vital Signs Temp 98.6 F 10/27/23 09:00 Pulse 79 10/27/23 09:00 Resp 118 H 10/27/23 09:00 BP 119/64 10/27/23 09:00 Pulse Ox 98 10/27/23 09:00 O2 Del Method Room Air 10/27/23 09:00 Common normals: no apparent distress, oriented x3 and alert General appearance: cooperative Orientation/consciousness: Yes awake HENMT Common normals: normocephalic and head/scalp atraumatic Eye Common normals: PERRL, EOMs intact bilaterally, conjunctivae normal and no scleral icterus Neck & C-Spine Common normals: no JVD Respiratory Common normals: normal respiratory effort, no use of accessory muscles and clear to auscultation bilaterally Effort & inspection: able to speak in complete sentences and symmetric chest movement Cardio Common normals: no JVD, regular rate, regular rhythm, S1 normal heart sound, S2 normal heart sound, no murmurs and peripheral pulses 2+ throughout GI Common normals: soft to palpation Inspection: normal to inspection; no abdominal distension Auscultation: hypoactive bowel sounds Palpation: tender Details: RUQ; no guarding and not rigid Bladder/kidney exam: bladder normal to palpation Extremity Common normals: normal to inspection, full ROM, normal capillary refill and no pedal edema General: no clubbing and no cyanosis Neuro Common normals: moves all extremities, no focal motor deficits and no sensory deficits noted Speech: speech normal Psych Common normals: mental status grossly normal and activity/motor behavior normal DS: Data Data Completed and Pending Labs on day of discharge: Labs from last 24 hours 10/27/23 10/26/23 10/26/23 04:29 22:50 11:26 WBC 14.1 H RBC 3.52 L Hgb 10.6 L Hct 32.8 L MCV 93.2 MCH 30.1 MCHC 32.3 RDW 14.3 Plt Count 248 MPV 9.7 Neut % (Auto) 82.1 H Lymph % (Auto) 7.3 L [place] % (Auto) 7.4 Eos % (Auto) 1.5 Baso % (Auto) 0.4 Neut # (Auto) 11.6 H Lymph # (Auto) 1.0 L [place] # (Auto) 1.0 H Eos # (Auto) 0.2 Baso # (Auto) 0.1 Abs Immat Gran (auto) 0.19 H Imm/Tot Granulo (auto) 1.3 H ESR 111 H Sodium 132 L Potassium 3.9 Chloride 103 Carbon Dioxide 21.7 Anion Gap 11.2 BUN 9.0 Creatinine 0.62 Est GFR ( Amer) >60 Est GFR (Non-Af Amer) >60 BUN/Creatinine Ratio 14.5 Glucose 91 Calcium 7.8 L Total Bilirubin 1.5 H AST 96 H ALT 120 H Alkaline Phosphatase 207 H Ammonia <10 L C-Reactive Protein 23.62 H Total Protein 5.5 L Albumin 1.5 L Globulin 4.0 Albumin/Globulin Ratio 0.4 Procalcitonin 1.50 H Stl C. cayetanensis PCR Not detected Stool Rotavirus (PCR) Not detected Stool Adenovirus (PCR) Not detected Stool Astrovirus (PCR) Not detected Stool Campylobacter PCR Not detected Stool Cryptosporidium PCR Not detected St Sh/Enteroin Ecoli PCR Not detected Stl Enterotoxigenic E PCR Not detected Stool EPEC (PCR) Not detected Stl E. histolytica PCR Not detected Stool Giardia Lamblia PCR Not detected Stl P. shigelloides PCR Not detected Stool Salmonella PCR Not detected Stool Sapovirus (PCR) Not detected Stl Shiga-like Tx [address] Y.enterocolitica PCR Not detected Stl Vibrio cholerae PCR Not detected Stl Enteroaggr Ecoli PCR Not detected Stl Norovirus GI/GII PCR Not detected Specimen Source Stool C. difficile Toxin A&B Not detected Hepatitis A IgM Ab Hep Bs Antigen Hep B Core IgM Ab Hepatitis C Antibody Hepatitis C Interp Vibrio Culture Not detected 10/26/23 09:22 WBC RBC Hgb Hct MCV MCH MCHC RDW Plt Count MPV Neut % (Auto) Lymph % (Auto) [place] % (Auto) Eos % (Auto) Baso % (Auto) Neut # (Auto) Lymph # (Auto) [place] # (Auto) Eos # (Auto) Baso # (Auto) Abs Immat Gran (auto) Imm/Tot Granulo (auto) ESR Sodium Potassium Chloride Carbon Dioxide Anion Gap BUN Creatinine Est GFR ( Amer) Est GFR (Non-Af Amer) BUN/Creatinine Ratio Glucose Calcium Total Bilirubin AST ALT Alkaline Phosphatase Ammonia C-Reactive Protein Total Protein Albumin Globulin Albumin/Globulin Ratio Procalcitonin Stl C. cayetanensis PCR Stool Rotavirus (PCR) Stool Adenovirus (PCR) Stool Astrovirus (PCR) Stool Campylobacter PCR Stool Cryptosporidium PCR St Sh/Enteroin Ecoli PCR Stl Enterotoxigenic E PCR Stool EPEC (PCR) Stl E. histolytica PCR Stool Giardia Lamblia PCR Stl P. shigelloides PCR Stool Salmonella PCR Stool Sapovirus (PCR) Stl Shiga-like Tx [address] Y[address]enterocolitica PCR Stl Vibrio cholerae PCR Stl Enteroaggr Ecoli PCR Stl Norovirus GI/GII PCR Specimen Source C. difficile Toxin A&B Hepatitis A IgM Ab Negative Hep Bs Antigen Negative Hep B Core IgM Ab Negative Hepatitis C Antibody Non reactive Hepatitis C Interp Comment Vibrio Culture Imaging Chest x-ray: Radiologist's impression: IMPRESSION: No acute pulmonary disease. CT scan - head: Radiologist's impression: IMPRESSION: No CT evidence of acute intracranial abnormality. If there is clinical concern for acute brain parenchymal pathology, consider MRI for further evaluation. Mild cerebral volume loss. CT scan - abdomen: Radiologist's impression: IMPRESSION: 1. Liver lesions including a dominant lesion left lobe 6.4 cm maximum and a small lesion dome of the liver. Indeterminate on this noncontrast study. Differential diagnosis includes metastasis, benign lesion such as hemangiomas or primary liver malignancy. Patient is allergic to IV contrast so contrast-enhanced CT involves some risk. Recommend ultrasound evaluation possibly MRI. Ultimately lesion may need to undergo image guided biopsy unless hemangiomas or other benign lesion felt to be present. 2. Colon abnormalities with bowel wall thickening which may reflect colitis although is nonspecific. Abnormalities in the pelvic colon could reflect diverticulitis. Bowel wall does appear to be thickened diffusely. 3. Significant retained oral contrast within the stomach with possible wall thickening distal body and antrum. Could also be due to peristalsis. Consider upper endoscopy. US - abdomen: Attestation: I have reviewed the pertinent imaging results. Radiologist's impression: IMPRESSION: Abnormal heterogeneous hypoechoic mass is seen in the left hepatic lobe, which measures approximately 8 x 4.8 x 6.9 cm. Additional hypoechoic mass is seen in the right hepatic lobe, which measures approximately 1.2 x 0.8 x 1.3 cm. Malignancy cannot be excluded. MRI of the liver with contrast is recommended for better evaluation. Discharge Plan Discharge Disposition: Home, Self-Care Condition: Good Discharge Medications: New ciprofloxacin HCl 500 mg tablet 500 mg PO BID 6 Days Qty: 12 0RF Continued ropinirole 2 mg tablet 2 mg PO .HS pantoprazole 40 mg tablet,delayed release (DR/EC) 40 mg PO .AM duloxetine 30 mg capsule,delayed release(DR/EC) 30 mg PO BID tizanidine 4 mg tablet 4 mg PO Q12H PRN (Reason: MUSCLE SPASMS) dicyclomine 10 mg capsule 10 mg PO BID Held atorvastatin 20 mg tablet 20 mg PO .PM Hold Instructions: Until discussed with Dr Varela meloxicam 15 mg tablet 15 mg PO .PM Hold Instructions: Until discussed with Dr Varela Activity: increase activity as tolerated Diet: advance to your usual diet Patient Instructions: Ciprofloxacin (By mouth) (Cipro), Dehydration (ED), Hypokalemia (ED), Leukocytosis (ED) Forms: Portal Instructions Follow Up Appointments: Follow up appointment with Delicia Ann NP [phone] November 01 at 10am. Please arrive 15 mins prior. Bring medlist, Insurance, and ID. Dr Varela, Oncology, ext [phone] October 31, at 2:30pm please arrive 15 minutes early Discharge Date/Time: 10/27/23 11:53
--- NOTE | 2023-10-27 09:42 | CM.NOTE ---
Important Message from Medicare ([facility]) reviewed and signed by Twila. No questions offered. Copy to chart original to wTila.
[2023-10-27 10:25] LABS: Source Blood
[2023-10-28 04:07] LABS: AFP, Serum, Tumor Marker 2.2 ng/mL (0.0-9.2)
[2023-10-28 06:09] LABS: CA 19-9 <2 U/mL (0-35)
--- NOTE | 2023-10-28 15:03 | CM.DCFOLLOWU ---
1st attempt discharge follow up call, no answer 10/28/23
[2023-10-29 04:07] LABS: CEA 0.8 ng/mL (0.0-4.7)
--- NOTE | 2023-11-01 13:35 | CM.DCFOLLOWU ---
Person spoke with: patient How are you feeling? better than while at hospital How is your pain? better Did you understand your discharge instructions? yes Do you have any questions about your discharge instructions? no Were you given any prescriptions at discharge? yes Were you able to get your prescriptions filled? yes Do you understand how to take your medications as ordered? yes Do you have any questions about your follow up appointment and do you plan to keep your follow up appointment? no questions, follow up today and tomorrow, pt is aware Is there anything else that you would like to discuss? pt inquired about online healthechart, advised to ask nursing for it when at follow up today with Dr. Varela. Questions/Comments/Concerns/Other: N/A
== END 2023-10-27 11:53 | disposition home or self-care (01) | DRG 641 ==
LOC: ER 19:30 → MS 20:39
PROVIDERS: Physician Assistant; Registered Nurse; Admitting Provider Family Medicine; Emergency Provider Student in an Organized Health Care Education/Training Program; PCP Family Medicine; Visit Provider Nurse Practitioner
DX: E87.1 Hypo-osmolality and hyponatremia (principal); R74.01 Elevation of levels of liver transaminase levels; E87.6 Hypokalemia; D72.829 Elevated white blood cell count, unspecified; E78.00 Pure hypercholesterolemia, unspecified; D64.9 Anemia, unspecified; K58.9 Irritable bowel syndrome, unspecified; F32.A Depression, unspecified; G25.81 Restless legs syndrome; M19.90 Unspecified osteoarthritis, unspecified site; K21.9 Gastro-esophageal reflux disease without esophagitis; Z79.899 Other long term (current) drug therapy; Z90.49 Acquired absence of other specified parts of digestive tract; K76.9 Liver disease, unspecified; R79.82 Elevated C-reactive protein (CRP)
CPT/HCPCS: 0202U; 36415; 70450; 71045; 74176; 76705; 80053; 80074; 81001; 82105; 82140; 82378; 82800; 83605; 83690; 83735; 84145; 84443; 84484; 85025; 85610; 85652; 86140; 86301; 87040; 87150; 87420; 87507; 93005; 96361; 96365; 96366; 96367; 96368; 96375; 99285; G0378; Q9963

== ENCOUNTER 2023-11-01 07:30 | Outpatient (RCR) | payer MEDICARE, SELFPAY ==
[2023-11-01 16:26] LABS: Basophils Absolute Auto 0.1 10^3/uL (0.0-0.1); Basophils Percent Auto 0.5 % (0.2-2.0); Eosinophils Absolute Auto 0.1 10^3/uL (0.0-0.7); Eosinophils Percent Auto 1.2 % (0.9-7.0); Hematocrit 35.2 % (36.0-48.0); Hemoglobin 11.2 g/dL (12.0-16.0); Immature Granulocytes Abs Auto 0.03 10^3/uL (0.00-0.03); Immature Granulocytes Pct Auto 0.3 % (0.0-0.5); Lymphocytes Absolute Auto 1.1 10^3/uL (1.2-3.8); Lymphocytes Percent Auto 10.5 % (20.5-60.0); Mean Corpuscular HGB Conc 31.8 g/dL (29.9-35.2); Mean Corpuscular Hemoglobin 30.4 pg (26.7-34.0); Mean Corpuscular Volume 95.4 fL (81.0-99.0); Mean Platelet Volume 8.6 fL (9.5-13.5); Monocytes Absolute Auto 0.9 10^3/uL (0.3-0.8); Neutrophils Percent Auto 78.5 % (43.0-75.0); Platelet Count 511 10^3/uL (150-450); Red Blood Count 3.69 10^6/uL (4.20-5.40); Red Cell Distribution Width 13.7 % (11.0-15.0); White Blood Count 10.2 10^3/uL (4.0-11.0)
[2023-11-01 16:52] LABS: Alanine Aminotransferase 96 U/L (14-59); Albumin Globulin Ratio 0.4; Alkaline Phosphatase 198 U/L (46-116); Anion Gap 15.9; Aspartate Amino Transferase 53 U/L (15-37); BUN Creatinine Ratio 8.5; Bilirubin Total 1.1 mg/dL (0.2-1.0); Calcium 8.6 mg/dL (8.5-10.1); Carbon Dioxide 25.6 mmol/L (21.0-32.0); Chloride 96 mmol/L (98-107); Estimated GFR (African America >60 (>=60); Estimated GFR (Non-African Ame >60 (>=60); Globulin 5.3 g/dL; Glucose 96 mg/dL (74-106); Lactate Dehydrogenase 173 U/L (81-234); Potassium 3.5 mmol/L (3.5-5.1); Sodium 134 mmol/L (136-145); Total Protein 7.3 g/dL (6.4-8.2)
[2023-11-03 04:07] LABS: AFP, Serum, Tumor Marker 2.7 ng/mL (0.0-9.2); CEA 0.8 ng/mL (0.0-4.7)
[2023-11-03 05:07] LABS: CA 19-9 <2 U/mL (0-35)
== END 2023-11-20 23:59 | disposition home or self-care (01) ==
LOC: INF 07:30
PROVIDERS: PCP Family Medicine; Visit Provider Internal Medicine Hematology & Oncology
DX: D72.829 Elevated white blood cell count, unspecified (principal); D64.9 Anemia, unspecified; R16.0 Hepatomegaly, not elsewhere classified; K21.9 Gastro-esophageal reflux disease without esophagitis; Z87.891 Personal history of nicotine dependence; Z85.828 Personal history of other malignant neoplasm of skin; Z80.3 Family history of malignant neoplasm of breast; Z80.0 Family history of malignant neoplasm of digestive organs; Z90.710 Acquired absence of both cervix and uterus; D49.0 Neoplasm of unspecified behavior of digestive system
CPT/HCPCS: 36415; 80053; 82105; 82378; 82785; 83615; 85025; 85652; 86140; 86301; 86316; G0463

== ENCOUNTER 2023-11-24 08:20 | Outpatient (OUT) | payer MEDICARE, SELFPAY ==
--- NOTE | 2023-11-24 08:23 | US_ITS ---
The [address] [address] Patient Name: DIVYA ARRIAGA MRN: [id number] date: 1950 Sex: F Assigned Patient Location: [place] Current Patient Location: [place] Accession/Order Number: [id number] Exam Date: 11/24/2023 08:35 Report Date: 11/24/2023 10:24 At the request of: AYESHA CAMPBELL Procedure: US abdomen limited EXAMINATION: US abdomen limited HISTORY: Abdominal mass post liver biopsy ; right upper quadrant pain COMPARISON: Ultrasound biopsy liver 11/11/2023, ultrasound right upper quadrant 10/26/2023 TECHNIQUE: Transabdominal evaluation of the right upper quadrant. FINDINGS: Geographic shaped hypoechoic area with irregular margins within subcutaneous fat overlying liver and deep to site of prior biopsy. No appreciable internal blood flow. US/US abdomen limited IMPRESSION: 1. Suspect subcutaneous hematoma at site of prior liver biopsy. Consider CT abdomen with IV contrast for further evaluation if symptoms persist or increase. Electronically authenticated by: JAZMIN LAZO Date: 11/24/2023 10:24
--- OUTSIDE RECORDS SUMMARY | 2023-11-24 08:37 | XMS_ITS | CCD ---
Author Organization [facility] Care Team Providers Care Circuit Tester Name Role Phone DR SANTIAGO CONNOLLY Attending Unavailable DR SANTIAGO CONNOLLY Admitting Unavailable YAROSPANKAJ Carrasquillo Consulting Unavailable AHDOOTSUSANNAH Consulting Unavailable Juana Acharya MD Primary Care Provider Mimi IT RISK AND ASSURANCE SENIOR MANAGER, Shantell Orozco Unavailable MIMI, SHANTELL Orozco Attending Unavailab le BLACKSTON, SHAYLA Terrell Attending Unavailable LE, SHANTELL Orozco Referring Unavailab le LE, SHANTELL Orozco Referring Unavailab le LE, SHANTELL Orozco Attending Unavailab ROXANNA Fitzgerald Attending Unavailable LE, SHANTELL Orozco Referring Unavailab le BLACKSTON, SHAYLA Terrell Attending Unavailable LE, SHANTELL Orozco Referring Unavailab le BLACKSTON, SHAYLA Terrell Attending Unavailable LE, SHANTELL Orozco Referring Unavailab VERONICA Herrera Attending Unavailable LE, SHANTELL Orozco Referring Unavailab le PAVAN CHAPMAN Attending Unavailable BLACKSTON, SHAYLA Terrell Attending Unavailable LE, SHANTELL Orozco Referring Unavailab KORINA Gavin Attending Unavailable LENNY GARCIA Attending Unavailab MD Abby Fox Attending Provider [phone] MD Gopi Camara Primary Care Provider MD Jimmy White Attending Provider Jimmy White Admitting Unavailable Jimmy White Attending Unavailable Gopi Camara Primary Care Unavailable Nichole, Abby Admitting Unavailable Nichole, Abby Attending Unavailable Gopi Camara Primary Care Unavailable Allergies Allergy Classification Reported Allergen(s) Allergy Type Date of Onset Reaction(s) Facility (1 source) Sulfonamides (Antibiotic) Drug allergy (disorder) [facility] Repository (9 sources) Iodine Drug Allergy 9 Hives, Shortness of breath [facility] (11 sources) Latex Propensity to adverse reactions 9 Rash [facility] (9 sources) Sulfonamides (Antibiotic) Drug Intolerance 9 Hives [facility] (11 sources) Iodinated Contrast Media Drug Allergy 1 Unknown [facility] (3 sources) Sulfonamides (Antibiotic); Translations: [Sulfa (Sulfonamide Antibiotics)] Allergy to substance 4 [facility] (3 sources) Gadolinium-Conta ining Contrast Medi; Translations: [Gadolinium-Cont aining Contrast Medi] Allergy to substance 4 [facility] (1 source) Latex Drug allergy (disorder) 4 [facility] Repository (1 source) Iodinated Contrast Media Drug allergy (disorder) 4 [facility] Repository Medications Current Medications Medication Drug Class(es) Dates Sig (Normalized) Sig (Original) atorvastatin 20 mg oral tablet (12 sources) HMG-CoA Reductase Inhibitor Start: 11-11-2023 End: 11-14-2023 take 1 tablet by mouth once daily Atorvastatin (Lipitor) 20 mg tablet Active 20 MG PO Daily November 14, 2023 12:00am Start: 08-31-2023 take 1 tablet by sandra th in the morning atorvastatin (Lipitor) 20 MG tablet Indications: Mixed hyperlipidemia (CMS/HCC) Take 1 tablet (20 mg) by mouth in the morning. 90 tablet 3 08/31/2023 Active diclofenac sodium 0.01 mg/mg topical gel (9 sources) Nonsteroidal Anti-inflammatory Drug diclofenac sodium (Voltaren) 1 % gel Transdermal 0 Active dicyclomine hydrochloride 10 mg oral capsule (11 sources) Anticholinergic Start: 11-11-19 take 10 mg by mouth twice daily Dicyclomine Active 10 MG PO Twice daily November 11, 2023 12:00am Start: 08-31-2023 take 1 capsule by mo uth in the morning dicyclomine (Bentyl) 10 MG capsule Indications: Irritable bowel syndrome with both constipation and diarrhea Take 1 capsule (10 mg) by mouth in the morning and 1 capsule (10 mg) before bedtime. 90 capsule 3 08/31/2023 Active DULoxetine 30 mg delayed release oral capsule (11 sources) Serotonin and Norepinephrine Reuptake Inhibitor Start: 11-11-2023 take 30 mg by mouth once daily Duloxetine Active 30 MG PO Daily November 11, 2023 12:00am Start: 08-31-2023 take 1 capsule by mo [facility] in the morning DULoxetine (Cymbalta) [address] capsule Indications: Recurrent major depressive disorder, in partial remission (HCC) (CMS/HCC) Take 1 capsule (30 mg) by mouth in the morning. 90 capsule 3 08/31/2023 Active meloxicam 15 mg oral tablet (11 sources) Nonsteroidal Anti-inflammatory Drug Start: 11-11-2023 take 15 mg by mouth once daily Meloxicam Active 15 MG PO Daily November 11, 2023 12:00am take 1 tablet by mouth in the mo [facility] meloxicam (Mobic) 15 MG tablet Take 1 tablet by mouth in the morning. 0 Active Multiple Vitamins-Minerals (Multi For Her 50+) tablet (9 sources) Multiple Vitamins-Minerals (Multi For Her 50+) tablet as directed Orally 0 Active Bz-Zma-Wesdh-Calcium Carb-K1 (One Daily Women 50 Plus(Vit K)) 400 mcg-500 mg calcium-20 mcg tablet (1 source) Start: take 1 tablet by mouth once Mx-Amg-Vjxjm-Calcium Carb-K1 (One Daily Women 50 Plus(Vit K)) 400 mcg-500 mg calcium-20 mcg tablet Active TAB PO November 14, 2023 12:00am pantoprazole 40 mg delayed release oral tablet (11 sources) Proton Pump Inhibitor Start: take 40 mg by mouth once daily Pantoprazole Active 40 MG PO Daily November 11, 2023 12:00am pantoprazole (Pr otoNix) 40 MG EC tablet 1 (one) time each day at the same time. 0 Active rOPINIRole 2 mg oral tablet (11 sources) Nonergot Dopamine Agonist Start: 11-11-2023 take 2 mg by mouth once daily Ropinirole Active 2 MG PO Daily November 11, 2023 12:00am Start: 08-31-2023 rOPINIRole (Re quip) 2 MG tablet Indications: Restless Leg Syndrome TAKE ONE-HALF (1/2) TABLET AT 4 P.M. THEN TAKE 1 FULL TABLET AT BEDTIME 90 tablet 3 08/31/2023 Active tiZANidine 4 mg oral capsule (10 sources) Central alpha-2 Adrenergic Agonist Start: 11-14-2023 take 4 mg by mouth once daily at bedtime Tizanidine Active 4 MG PO Daily at bedtime November 14, 2023 12:00am tiZANidine (Rosas flex) 4 MG tablet TAKE ONE-HALF (1/2) TO ONE TABLET TWICE A DAY NEEDED FOR PAIN 0 Active valACYclovir 500 mg oral tablet (1 source) Herpesvirus Nucleoside Analog DNA Polymerase Inhibitor, Herpes Simplex Virus Nucleoside Analog DNA Polymerase Inhibitor, Herpes Zoster Virus Nucleoside Analog DNA Polymerase Inhibitor Start: 11-14-2023 take 500 mg by mouth once daily Valacyclovir Active 500 MG PO Daily November 14, 2023 12:00am zinc gluconate 50 mg oral tablet (9 sources) zinc gluconate 5 0 MG tablet 1 (one) time each day at the same time. 0 Active Completed/Discontinued Medications Medication Drug Class(es) Dates Sig (Normalized) Sig (Original) 1 ml methylPREDNISolone acetate 40 mg/ml injection (13 sources) Corticosteroid Start: 4 End: 4 methylPREDNISolone acetate (DEPO-Medrol) injection 40 mg Start: 03-01-2023 methylPREDNISo lone (Medrol Dospak) 4 MG tablets Indications: Primary osteoarthritis of right knee Follow schedule on package instructions 21 tablet 0 03/01/2023 Active Problems Active Problems Problem Classification Problem Date Documented Da te Episodic/Chronic Disorders of lipid metabolism (9 sources) Mixed hyperlipidemia; Translations: [Mixed hyperlipidemia] Onset: 7 01-19-2023 Chronic E Codes: Natural/environment (1 source) Overexertion from prolonged static or awkward postures, initial encounter; Translations: [OVEREXERT PROLNG STAT/AWK PST INIT] Onset: 1 Episodic Esophageal disorders (9 sources) Gastroesophageal reflux disease; Translations: [Gastro-esophageal reflux disease without esophagitis] Onset: 7 01-19-2023 Chronic Joint disorders and dislocations; trauma-related (9 sources) Derangement of right knee; Translations: [Unspecified internal derangement of right knee] Onset: 1 01-19-2023 Chronic Mood disorders (9 sources) Major depression in partial remission; Translations: [Major depressive disorder, single episode, in partial remission] Onset: 3 01-19-2023 Chronic Osteoarthritis (13 sources) Localized, primary osteoarthritis of the hand; Translations: [Primary osteoarthritis, unspecified hand] Onset: 0 01-19-2023 Chronic Other aftercare (1 source) Other long term care phlebotomist (current) drug therapy; Translations: [OTH INSTRUCTIONAL SUPPORT SPECIALIST CURRENT DRUG THERAPY] Onset: 1 Episodic Other gastrointestinal disorders (9 sources) Irritable bowel syndrome; Translations: [Irritable bowel syndrome without diarrhea] Onset: 7 01-19-2023 Chronic Other hereditary and degenerative nervous system conditions (9 sources) Restless legs; Translations: [Restless legs syndrome] Onset: 7 01-19-2023 Chronic Other liver diseases (1 source) Hepatomegaly, not elsewhere classified; Translations: [Hepatomegaly, not elsewhere classified] Onset: 4 Episodic Other nervous system disorders (9 sources) Carpal tunnel syndrome of right wrist; Translations: [Carpal tunnel syndrome, right upper limb] Onset: 9 01-19-2023 Chronic Other nervous system disorders (2 sources) Impairment of balance; Translations: [Other abnormalities of gait and mobility] 09-22-2023 Episodic Other non-traumatic joint disorders (9 sources) Arthropathy of multiple joints; Translations: [Arthropathy, unspecified] Onset: 3 01-19-2023 Chronic Other non-traumatic joint disorders (6 sources) Pain in right knee; Translations: [Pain in joint, lower leg] Onset: 1 Episodic Screening and history of mental health and substance abuse codes (1 source) Personal history of nicotine dependence; Translations: [PERSONAL HISTORY OF NICOTINE DEPEND] Onset: 1 Episodic Sprains and strains (1 source) Sprain of unspecified site of right knee, initial encounter; Translations: [SPRAIN UNS SITE RT KNEE INITIAL] Onset: 1 Episodic Past or Other Problems Problem Classification Problem Date Documented Da te Episodic/Chronic Other connective tissue disease (9 sources) Fibromyalgia; Translations: [Fibromyalgia] Onset: 08-17-2017 01-19-2023 Episodic Other connective tissue disease (9 sources) Impingement syndrome of right shoulder region; Translations: [Impingement syndrome of right shoulder] Onset: 04-16-2016 01-19-2023 Episodic Other connective tissue disease (9 sources) Pain in right thumb; Translations: [Pain in right finger(s)] Onset: 01-19-2023 01-19-2023 Episodic Other connective tissue disease (9 sources) Spasm; Translations: [Cramp and spasm] Onset: 12-01-2018 01-19-2023 Episodic Other connective tissue disease (9 sources) Muscle spasm of cervical muscle of neck; Translations: [Other muscle spasm] Onset: 01-19-2023 01-19-2023 Episodic Other connective tissue disease (9 sources) Impingement syndrome of shoulder region; Translations: [Impingement syndrome of unspecified shoulder] Onset: 04-16-2016 06-21-2023 Episodic Other non-traumatic joint disorders (9 sources) Shoulder pain; Translations: [Pain in unspecified shoulder] Onset: 06-19-2018 01-19-2023 Episodic Spondylosis; intervertebral disc disorders; other back problems (9 sources) Sciatica; Translations: [Sciatica, left side] Onset: 05-26-2017 01-19-2023 Episodic Results Test Name Value Interpretation Reference Range Facility Activated partial thrombopla stin time (aPTT) in platelet poor plasma by coagulation aOrdered By: Abby Varela on 11-11-2023 aPTT Coag (PPP) [Time] 28.2 s 25.1-36.5 [facility] Comment on above: A hematocrit value g reater than 55% may lead to inaccurate results in coagulation testing. Patients having hematocrit values >55% require a special collection tube for coagulation studies. Please contact the laboratory at [phone] for redraw instructions. Coagulation Profileon 2023 aPTT Coag (Bld) [Time] 28.2 s Normal 25.1-36.5 [facility] Comment on above: Order Comment: STAT FOR US BX Result Comment: A he matocrit value greater than 55% may lead to inaccurate results in coagulation testing. Patients having hematocrit values >55% require a special collection tube for coagulation studies. Please contact the laboratory at [phone] for redraw instructions. PERFORMED BY: [place] [address] PATHOLOGIST PIE BAKERY LABORER DOROTEO BANKS M.D. Performed By: #### P LT, PP #### [facility] [address] [place], [place] [id number] [facility] INR Coag (PPP) [Relative time] 1.6 {INR} Normal [facility] Comment on above: Order Comment: STAT FOR US BX Result Comment: INR Therapeutic Range A) Pre- and Peroperative OAT started two weeks before surgery. NOT HIP SURGERY: 1.5 - 2.5 HIP SURGERY: 2 - 3 B) Primary and secondary prevention of venous THROMBOSIS: 2 - 3 C) Active venous thrombosis, pulmonary embolism and prevention of recurrent venous thrombosis: 2 - 3 D) Prevention of arterial thromboembolism including patients with mechanical heart valves: 3 - 4.5 Performed By: #### P LT, PP #### [place] [id number] [facility] PT Coag (PPP) [Time] 17.9 s High 9.0-12.9 [facility] Comment on above: Order Comment: STAT FOR US BX Result Comment: A he matocrit value greater than 55% may lead to inaccurate results in coagulation testing. Patients having hematocrit values >55% require a special collection tube for coagulation studies. Please contact the laboratory at [phone] for redraw instructions. Performed By: #### P LT, PP #### [facility] [address] [place] [id number] [place] INR in Platelet poor plasma by Coagulation assayOrdered By: Abby Varela on 11-11-2023 INR Coag (PPP) [Relative time] 1.6 {INR} [facility] Comment on above: INR Therapeutic Rang e A) Pre- and Peroperative OAT started two weeks before surgery. NOT HIP SURGERY: 1.5 - 2.5 HIP SURGERY: 2 - 3B) Primary and secondary prevention of venous THROMBOSIS: 2 - 3C) Active venous thrombosis, pulmonary embolismand prevention of recurrent venous thrombosis: 2 - 3D) Prevention of arterial thromboembolismincluding patients with mechanical heart valves: 3 - 4.5 Jet 11-11-2023 L Specimen: [id number] Received: 11/11/23 Status: KAYCE Felton Num: [id number] Spec Type: Surgical Subm Dr: Yamil Cano DO Tissues: A Liver - Needle Biopsy (LT LIVER LOBE) Procedures: PAS - LGRN, MART 1/MARCEL A, HE/2, Gross/Micro L5, GMS II Dark, AE1-AE3, CD68, CK20, CK 7, SOX-10, DIFF QWIK/2 Age/ Patient Sex Location Account Attending Physician Twila Ceballos 73/F [id number] Abby Varela MD SPEC NUM: [id number] RECD: 11/11/23 STATUS: KAYCE FELTON NUM: [id number] TERESA: 11/11/[address]: Yamil Cano DO ENTERED: 11/11/23 [facility] DR: SPEC TYPE: Surgical DEPT: S ORDERED: PAS - LGRN, MART 1/MARCEL A, HE/2, Gross/Micro L5, GMS II Dark, AE1-AE3, CD68, CK20, CK 7, SOX-10, DIFF QWIK/2 ORDERED: PAS - LGRN, MART 1/MARCEL A, HE/2, Gross/Micro L5, GMS II Dark, AE1-AE3, CD68, CK20, CK 7, SOX-10, DIFF QWIK/2 Pathological Diagnosis Preliminary Report Mass, liver, core biopsy: Dense fibrosis with scattered foci of acute inflammation. Pending external consultation. Clinical Information Liver mass, appendectomy, anemia Gross Description Received fresh labeled with the patient's name, date of and liver biopsy are two cores of mcgraw-white tissue measuring 1.0 x 0.1 cm and 1.2 x 0.1 cm. Touch preps are prepared. Entirely submitted in one cassette labeled A1. Specimen: [id number] Received: 11/11/23 Status: KAYCE Felton Num: [id number] Spec Type: Surgical Subm Dr: Yamil Cano DO Tissues: A Liver - Needle Biopsy (LT LIVER LOBE) Procedures: PAS - LGRN, MART 1/MARCEL A, HE/2, Gross/Micro L5, GMS II Dark, AE1-AE3, CD68, CK20, CK 7, SOX-10, DIFF QWIK/2 Patient: Twila Ceballos [id number] (Continued) Specimen: Received: 11/11/23 (Continued) Signed (signature on file) Dayday Ford MD 11/15/231757 Specimen: [id number] Received: 11/11/23 Status: KAYCE Felton Num: [id number] Spec Type: Surgical Subm Dr: Yamil Cano DO Tissues: A Liver - Needle Biopsy (LT LIVER LOBE) Procedures: PAS - LGRN, MART 1/MARCEL A, HE/2, Gross/Micro L5, GMS II Dark, AE1-AE3, CD68, CK20, CK 7, SOX-10, DIFF QWIK/2 Patient: Twila Ceballos [id number] (Continued) Specimen: [id number] Received: 11/11/23-1258 (Continued) Intraoperative Diagnosis A. Liver biopsy (left liver lobe per requisition): - Neutrophilic inflammation. No malignant cells seen. Portion of specimen sent for cultures. Reported by Dr. Grullon 11/11/2023 at 11:55 AM CPT Codes 56495, 65821 Specimen: [id number] Received: 11/11/23-1257 Status: KAYCE Felton Num: [id number] Spec Type: Surgical Subm Dr: Yamil Cano DO Tissues: A Liver - Needle Biopsy (LT LIVER LOBE) Procedures: PAS - LGRN, MART 1/MARCEL A, HE/2, Gross/Micro L5, GMS II Dark, AE1-AE3, CD68, CK20, CK 7, SOX-10, DIFF QWIK/2 Patient: Twila Ceballos [id number] (Continued) Signed (signature on file) Dayday Ford MD 11/15/23 8023 Normal [facility] No Panel InformationOrdered By: Gopi Camara on 11-11-2023 Mycobacterium Identification N/A [facility] Mycology Susceptibility N/A [facility] Platelet Counton 11-11-2023 Platelets (Bld) [#/Vol] 675 10*3/uL High 150-450 [facility] Comment on above: Order Comment: STAT FOR US BX Result Comment: PERF ORMED BY: [facility] [address] [place] [address] PATHOLOGIST PIE BAKERY LABORER DOROTEO BANKS M.D. Performed By: #### P LT, PP #### [place] [id number] [place] Platelets Auto (Bld) [#/Vol] Ordered By: Abby Varela on 11-11-2023 Platelets (Bld) [#/Vol] 675 10*3/uL 150-450 [facility] Prothrombin time (PT)Ordered By: Abby Varela on 11-11-2023 PT Coag (PPP) [Time] 17.9 s 9.0-12.9 [facility] Comment on above: A hematocrit value g reater than 55% may lead to inaccurate results in coagulation testing. Patients having hematocrit values >55% require a special collection tube for coagulation studies. Please contact the laboratory at [phone] for redraw instructions. US needle biopsyon US needle biopsy [facility] [place] [address] [place], [place] [id number] Ultrasound Report Signed Patient: Twila Ceballos MR#: [id number] : 1950 Acct:[id number] Age/Sex: 73 / F ADM Date: 11/11/23 Loc: Room: Type: [facility] Attending Dr: Abby Varela MD Ordering Provider: Abby Varlea MD Date of Service: 11/11/23 US/US needle biopsy: LIVER MASS Copies to: Abby Varela MD Ultrasound-guided core biopsy of LEFT hepatic mass HISTORY: Multiple hepatic masses concerning for malignancy. Informed consent obtained. Skin entry site prepped and draped in sterile fashion with local lidocaine administered. 17-gauge introducer needle was administered into the cardiac mass. 3 core biopsy samples were obtained in the periphery. Adequate preliminary cells. Final pathology pending. No immediate complications. Adequate hemostasis. Follow-up ultrasound obtained. No hematoma or bleed. US/US needle biopsy IMPRESSION: Successful ultrasound-guided core biopsy of LEFT hepatic mass. Impression dictated by: Yamil Cano M.D.11/11/2023 3:15 PM Dictation Location: RADIO-PC-01 Tech: Hansa Azar Transcribed By: GUERDA 11/11/23 151 Dictated By: Yamil Cano DO 11/11/23 151 Signed By: 11/11/23 1515 [facility] No Panel Informationon 10-04 Pavan Chapman NP 10/04/2023 1:23 PM L Inj/Asp: R knee on 10/04/2023 1:22 PM Indications: pain Medications: 40 mg methylPREDNISolone acetate 40 MG/ML Procedure, treatment alternatives, risks and benefits explained, specific risks discussed. Consent was given by the patient. [employer] klin[employer] CT HEAD WO IV CONTRASTon CT HEAD WO IV CONTRAST EXAM: CT HEAD WO IV CONTRAST DATE: 09/13/2023 12:56 PM CLINICAL HISTORY: off balance. TECHNIQUE: Multiple images axial images were obtained without contrast administration. 3-D sagittal and coronal reconstructions were performed. All CT scans at this facility use dose modulation, iterative reconstruction, and/or weight based dosing when appropriate to reduce radiation dose to as low as reasonably achievable. COMPARISON: None available. FINDINGS: There is no evidence of acute hemorrhage, mass effect or edema. There are no extra-axial collections or space-occupying lesions. There is no midline shift. There is no evidence of acute ischemia, loss of singh-white matter differentiation or hypodense lesion. The ventricles are sulci are within normal limits. The periventricular white matter is within normal limits. The midline structures are intact. The region of the pineal gland and the pituitary gland are within normal limits. The posterior fossa is unremarkable, the craniovertebral junction is within normal limits. The orbits demonstrate no intra or extraconal lesions. The globes are intact. The visualized portions of paranasal sinuses are unremarkable. The visualized portions of the mastoid air cells are within normal limits. The calvarium is unremarkable. IMPRESSION: There are no acute intracranial changes. ELECTRONICALLY SIGNED BY: Bubba Ragsdale MD Normal Not Available XR KNEE RT 4V or >on XR KNEE RT 4V or > EXAMINATION: XR KNEE RT 4V or >, , 06/18/2021 7:41 PM EDT INDICATION: Acute pain due to injury HISTORY: Ordering Provider Reason for Exam: Technologist Note: Additional: COMPARISON: None. TECHNIQUE: Right knee x-ray: 3 view(s). FINDINGS: No acute fracture. Joint alignment is anatomic. Joint spaces are preserved. No significant joint effusion. Soft tissues are within normal limits. IMPRESSION: No acute fracture or traumatic malalignment. Electronically authenticated by: SUSANNAH HOUSE Date: 2021-06-18 20:29 Normal [facility] Vital Signs Date Time Vital Sign Value Performing Clinician Sergioi lity 11-14-2023 12:52-0400 Diastolic blood pressure 73 mm[Hg] MD Gopi Camara Work Phone: [facility] 11-14-2023 12:52-0400 Heart rate 65 /min MD Gopi Camara Work Phone: [facility] 11-14-2023 12:52-0400 Respiratory rate 16 /min MD Gopi Camara Work Phone: [facility] 11-14-2023 12:52-0400 SaO2% (BldA) [Mass fraction] 94 % MD Gopi Camara Work Phone: [facility] 11-14-2023 12:52-0400 Systolic blood pressure 112 mm[Hg] MD Gopi Camara Work Phone: [facility] 11-14-2023 10:55-0400 Body height 165.1 cm MD Gopi Camara Work Phone: [facility] 11-14-2023 10:55-0400 Body temperature 98 [degF] MD Gopi Camara Work Phone: [facility] 11-14-2023 10:55-0400 Body weight 67.13 kg MD Gopi Camara Work Phone: [facility] 11-11-2023 12:55-0400 Diastolic blood pressure 60 mm[Hg] MD Gopi Camara Work Phone: [facility] 11-11-2023 12:55-0400 Heart rate 80 /min MD Gopi Camara Work Phone: [facility] 11-11-2023 12:55-0400 Respiratory rate 18 /min MD Gopi Camara Work Phone: [facility] 11-11-2023 12:55-0400 SaO2% (BldA) [Mass fraction] 94 % MD Gopi Camara Work Phone: [facility] 11-11-2023 12:55-0400 Systolic blood pressure 114 mm[Hg] MD Gopi Camara Work Phone: [facility] 11-11-2023 10:34-0400 Body height 165.1 cm MD Gopi Camara Work Phone: [facility] 11-11-2023 10:34-0400 Body weight 65.77 kg MD Gopi Camara Work Phone: [facility] Encounters Encounter Date Encounter Type Care Provider Facility Start: 11-14-2023 Non-patient / Non-visit MD Emilio Camara Work Phone: [facility] Gastroenterology Work Phone: Start: 11-14-2023 End: 11-14-2023 ambulatory Jimmy White Facility:[facility] Start: 11-14-2023 End: 11-14-2023 Admission to same day surgery center MD Gopi Camara Work Phone: [facility] Work Phone: Start: 11-14-2023 End: 11-14-2023 ambulatory MD Gopi Camara Work Phone: [facility] Work Phone: Start: 11-11-2023 End: 11-11-2023 ambulatory Abby Nichole Facility:[facility] Start: 11-11-2023 End: 11-11-2023 Admission to same day surgery center MD Gopi Camara Work Phone: [facility] [place] Work Phone: Start: 11-11-2023 End: 11-11-2023 ambulatory MD Gopi Camara Work Phone: [facility] Work Phone: Start: 10-24-2023 End: 10-24-2023 ambulatory LENNY GARCIA Not Available Start: 10-10-2023 End: 10-10-2023 ambulatory KORINA OKEEFE Not Available Start: 10-06-2023 End: 10-06-2023 ambulatory SHAYLA GOLDMAN Not Available Start: 10-06-2023 Bamboo flowsheet Shayla Isaacs ksjose cruz PT Work Phone: [facility] Start: 10-06-2023 Bamboo flowsheet Shayla Isaacs kston PT Work Phone: [facility] Start: 10-04-2023 End: 10-05-2023 ambulatory VERONICA COLLINS Not Available Start: 10-04-2023 Bamboo flowsheet Veronica Collins PT A [facility] Start: 10-04-2023 Bamboo flowsheet Veronica Collins PT A [facility] Start: 10-04-2023 End: 10-04-2023 Office outpatient visit 25 minutes Pavan Chapman IT RISK AND ASSURANCE SENIOR MANAGER Work Phone: [facility] Comment on above: Primary osteoarthrit is of right knee (Primary Dx); Chronic pain of right knee Start: 10-04-2023 End: 10-04-2023 Treatment Veronica Collins GRANULAR OPERATOR [facility] Comment on above: Balance disorder (Pr imary Dx); Arthritis of right knee Start: 09-29-2023 Telephone encounter Shayla patterson PT Work Phone: [facility] Comment on above: Cx PT today (She trip led noting an unexpectant request came up and unable to make PT today; she confirmed 10/04.) Start: 09-27-2023 Bamboo flowsheet Shayla stewart PT Work Phone: [facility] Start: 09-27-2023 Bamboo flowsheet Shayla stewart PT Work Phone: [facility] Start: 09-27-2023 End: 09-27-2023 ambulatory SHAYLA GOLDMAN Not Available Start: 09-22-2023 Bamboo flowsheet Shayla stewart PT Work Phone: [facility] Start: 09-22-2023 Bamboo flowsheet Shayla stewart PT Work Phone: [facility] Start: 09-22-2023 End: 09-22-2023 Treatment Shayla Goldman PT Work Phone: [facility] Comment on above: Balance disorder (Pr imary Dx); Arthritis of right knee Start: 09-20-2023 End: 09-21-2023 ambulatory ROXANNA ABBYESoni Not Available Start: 09-14-2023 End: 09-14-2023 ambulatory SHANTELL A LE Not Available Start: 09-13-2023 End: 09-14-2023 ambulatory SHANTELL Orozco LE Not Available Start: 09-13-2023 End: 09-13-2023 ambulatory SHAYLA GOLDMAN Not Available Start: 08-31-2023 End: 08-31-2023 ambulatory SHANTELL A LE Not Available Start: 06-18-2021 End: 06-18-[address] SANTIAGO CONNOLLY Facility: Procedures Date Procedure Procedure Detail Performing Clinician Start: 11-14-2023 Esophagogastroduodenoscopy MD Gopi us Work Phone: Start: 11-11-2023 Investigation of transfusion reaction MD Gopi Camara Work Phone: Start: 11-11-2023 Mycobacterium Identification MD Gopi Camara Work Phone: Start: 11-11-2023 Mycology Susceptibility MD Gopi Camara Work Phone: Start: 11-11-2023 Ultrasonic guidance for needle biopsy MD Gopi Camara Work Phone: Start: 10-04-2023 Arthrocentesis aspir&/inj major jt/bursa w/o us Pavan T Sita IT RISK AND ASSURANCE SENIOR MANAGER Work Phone: Start: 05-30-2023 Mammography Shayla Goldman PT Work Phone: Plan of Treatment Date Care Activity Detail Author Start: 06-21-2024 Medicare Annual Wellness (AWV) Medicare Annual Wellness (AWV) [facility] Start: 05-30-2024 Screening for malignant neoplasm of breast Mammogram [facility] Start: 05-12-2024 Screening for malignant neoplasm of colon [facility] Start: 11-14-2023 [facility] Start: 11-11-2023 Microscopic observation [Identifier] in Unspecified specimen by Gram stain Gram Stain [facility] Start: 11-11-2023 End: 11-11-2023 [facility] Start: 11-11-2023 Ultrasonic guidance for needle biopsy [facility] Start: 10-20-2023 End: 10-20-2023 ambulatory 10/20/2023 11:00 AM EST Treatment [facility] [address] [place] [address] Shayla Goldman, PT [address] [place] [address] [facility] Start: 10-18-2023 End: 10-18-2023 ambulatory 10/18/2023 10:30 AM EST Treatment [facility] [address] [place] [address] Shayla Goldman, PT [address] [place] [address] [facility] Start: 10-17-2023 End: 10-17-2023 ambulatory 10/17/2023 10:00 AM EST Treatment [facility] [address] [place] [address] Shayla Goldman, PT [address] [place] [address] [facility] Start: 10-13-2023 End: 10-13-2023 ambulatory 10/13/2023 11:00 AM EST Treatment [facility] [address] [facility] [address] [place] [address] Shayla Goldman, PT [address] [place] [address] [facility] Start: 10-11-2023 End: 10-11-2023 Patient encounter procedure 10/11/2023 3:15 PM EST Office Visit [facility] [address] [place] [id number] Silvia Moran, DPM [address] [place] [address] [facility] Start: 10-11-2023 End: 10-11-2023 ambulatory 10/11/2023 10:30 AM EST Treatment [facility] [address] [facility] [address] [place] [address] Shayla Goldman, PT [address] [facility] [address] [place] [address] [facility] Start: 10-10-2023 End: 10-10-2023 Social Work 10/10/2023 1:00 PM EST Social Work [facility] [address] [place] [address] Korina Okeefe S, VP CARDIOVASCULAR-S [address] [place] [facility] [address] [facility] Start: 10-06-2023 End: 10-06-2023 ambulatory [facility] Start: 10-04-2023 End: 10-04-2023 Patient encounter procedure 10/04/2023 1:00 PM EST Office Visit [facility] [address] [facility] [address] [place] [address] Pavan Chapman T, IT RISK AND ASSURANCE SENIOR MANAGER [address] [address] [facility] Start: 10-04-2023 End: 10-04-2023 ambulatory [facility] Start: 09-29-2023 End: 09-29-2023 ambulatory 09/29/2023 4:30 PM EST Treatment [facility] [address] [place] [address] Shayla Goldman, PT [address] [place] [address] [facility] Start: 09-27-2023 End: 09-27-2023 ambulatory 09/27/2023 8:30 AM EST Treatment [facility] [address] [place] [address] Shayla Goldman, PT [address] [place] [address] [facility] Start: 1950 Screening for malignant neoplasm of colon [facility] Fungus identified in Unspecified specimen by Culture [facility] Microscopic observat ion [Identifier] in Unspecified specimen by Smear [facility] Mycobacterium sp identified in Unspecified specimen by Organism specific culture [facility] Patient Education [facility] Live r Biopsy Discharge Instructions [facility] Work Phone: Immunizations Immunization Date Immunization Notes Care Provider Fa [facility] 06-18-2023 tetanus toxoid, redu jay diphtheria toxoid, and acellular pertussis vaccine, adsorbed Shayla Goldman PT Work Phone: [facility] Work Phone: 04-28-2023 Influenza, Seasonal, Quadrivalent, Adjuvanted Shayla Goldman PT Work Phone: [facility] 04-28-2023 Pneumococcal Conjuga te PCV 20 Shayla Goldman PT Work Phone: [facility] 04-28-2023 RSV, recombinant, protein subunit RSVpreF, adjuvant reconstitu, 120mcg/0.5mL, PF (Arexvy) Shayla Goldman PT Work Phone: [facility] 05-14-2022 Influenza, Seasonal, Quadrivalent, Adjuvanted Shayla Goldman PT Work Phone: [facility] 05-06-2022 Moderna Bivalent Tello ster Vaccination Shayla Goldman PT Work Phone: [facility] 05-06-2022 Moderna SARS-CoV-2 50mcg/0.5mL Booster Shayla Goldman PT Work Phone: [facility] 04-16-2021 Influenza, High-dose Seasonal, Quadrivalent, Preservative Free Shayla Goldman PT Work Phone: [facility] 04-29-2020 influenza, injectabl e, quadrivalent, preservative free Shayla Goldman PT Work Phone: [facility] 05-04-2019 Seasonal trivalent influenza vaccine, adjuvanted, preservative free Shayla Goldman PT Work Phone: [facility] 05-10-2018 zoster vaccine recombinant Shayla Goldman PT Work Phone: [facility] 04-14-2018 influenza, seasonal, injectable, preservative free Shayla Goldman PT Work Phone: [facility] 04-13-2018 influenza virus vacc ine, split virus (incl. purified surface antigen) Shayla Goldman PT Work Phone: [facility] 04-11-2018 influenza, injectabl e, quadrivalent, preservative free Shayla Goldman PT Work Phone: [facility] 12-21-2017 zoster vaccine recombinant Shayla Goldman PT Work Phone: [facility] 05-23-2017 influenza, injectabl e, quadrivalent, preservative free Shayla Goldman PT Work Phone: [facility] 05-23-2017 pneumococcal polysaccharide vaccine, 23 valent Shayla Goldman PT Work Phone: [facility] 06-02-2016 influenza, injectabl e, quadrivalent, preservative free Shayla Goldman PT Work Phone: [facility] 06-02-2016 pneumococcal conjuga te vaccine, 13 valent Shayla Goldman PT Work Phone: [facility] 05-28-2015 influenza, injectabl e, quadrivalent, preservative free Shayla Goldman PT Work Phone: [facility] 05-28-2015 pneumococcal conjuga te vaccine, 13 valent Shayla Goldman PT Work Phone: [facility] 05-22-2015 seasonal influenza, intradermal, preservative free Shayla Goldman PT Work Phone: [facility] 05-22-2014 pneumococcal polysaccharide vaccine, 23 valent Shayla Goldman PT Work Phone: [facility] 12-25-2012 tetanus toxoid, redu jay diphtheria toxoid, and acellular pertussis vaccine, adsorbed Shayla Goldman PT Work Phone: [facility] 10-13-2009 novel influenza-H1N1 -09, preservative-free, injectable Shayla Goldman PT Work Phone: [facility] Payers Date Payer Category Payer Self-pay 2022 Unknown AARP AARP [id number] 2022-Present [address] [place] [address] [id number] 2022 Unknown [id number] 2017 Medicare MEDICARE MEDICAR E PART B [id number] 2017-Present [address] [address] [place] [address] Medicare [id number] 2017 Medicare [id number] 1959 Medicare [id number] 1950 Unknown [id number] 1950 Unknown [id number] [id number] 1950 Unknown [id number] [id number] 1952 Unknown [id number] [id number] 1952 Unknown [id number] [id number] 1952 Unknown [id number] [id number] 1952 Unknown [id number] [id number] 1952 Unknown [id number] [id number] 1952 Unknown [id number] [id number] 1952 Unknown [id number] [id number] 1952 Unknown [id number] [id number] 1952 Unknown [id number] [id number] 1952 Unknown [id number] [id number] Unknown [id number] [id number] Unknown [id number] Social History Date Type Detail Facility Start: 05-31-2023 Tobacco smoking stat us NHIS Never smoked tobacco [facility] Start: 01-19-2023 Tobacco use and exposure Smoke less tobacco non-user [facility] Start: 09-14-2023 End: 10-04-2023 Alcohol intake Current drinker of alcohol (finding) [facility] Start: 01-19-2023 End: 05-30-2023 History of Social function [facility] Start: 01-19-2023 End: 05-30-2023 Humiliation, Afraid, Rape, and Kick questionnaire [HARK] [facility] Within the last year , have you been afraid of your partner or ex-partner? Patient refused [facility] Within the last year , have you been kicked, hit, slapped, or otherwise physically hurt by your partner or ex-partner? No [facility] Do you belong to any clubs or organizations such as jehovah's witness groups, unions, fraternal or athletic groups, or school groups? Yes [facility] Are you now , , , , never or living with a partner? [facility] How often to you hav e a drink containing alcohol? Monthly or less [facility] How often do you hav e 6 or more drinks on 1 occasion? Never [facility] Do you feel stress - tense, restless, nervous, or anxious, or unable to sleep at night because your mind is troubled all the time - these days [OSQ] Not at all [facility] (I/We) worried wheth er (my/our) food would run out before (I/we) got money to buy more. Never true [facility] Start: 04-05-2023 Alcohol Comment caffeine: none [facility] Start: 1950 Sex Assigned At Not on file [facility] Start: 1950 Sex Assigned At Female F [facility] Goals Date Patient Goal Desired Activity /State Procedure note 11-14-2023 Note Date & Type Note Facility 11-14-2023 Procedure note [facility] History of Present illness Narrative 10-04-2023 Pavan Chapman NP - 10/04/2023 1:00 PM EST Note Date & Type Note Facility 10-04-2023 History of Presen t illness Narrative Associated Order(s): L Inj/Asp: R knee Post-Procedure Diagnose(s): Primary osteoarthritis of right knee Images from the original note were not included. Chief Complaint Patient presents with Right Knee - Pain HISTORY OF PRESENT ILLNESS: Twila Ceballos is an 73 y.o. @ female. (EST PT) S/P (R) KNEE SCOPE 08/10/21 (2 YRS 2 MTHS). INCREASED PAIN SINCE GOING TO THERAPY ABOUT A MONTH AGO. MDP 02/2022, 02/2023 PHYSICAL THERAPY @ [facility] DID NOT TAKE MDP 02/2023 CURRENTLY DOING PT AT [facility], SOME RELIEF. SORENESS MEDIAL AND LATERAL. TAKING MELOXICAM. TAKING TYL ARTHRITIS PRN. DENIES N/T, SWELLING. DENIES GIVING OUT. DENIES POPPING/GRINDING. ADMITS CATCHING WHEN SHE FIRST GETS UP FROM A CHAIR. DOES NOT WAKE AT HS. ALLERGIES: Allergies Allergen Reactions Iodine Hives and Shortness of breath Iodinated Contrast Media Unknown Other Reaction(s): HIVES Sulfa Antibiotics Hives Latex Rash HOME MEDICATIONS: Current Outpatient Medications Medication Instructions atorvastatin (LIPITOR) 20 mg, Oral, Daily diclofenac sodium (Voltaren) 1 % gel Transdermal dicyclomine (BENTYL) 10 mg, Oral, 2 times daily DULoxetine (CYMBALTA) 30 mg, Oral, Daily meloxicam (Mobic) 15 MG tablet 1 tablet, Oral, Daily methylPREDNISolone (Medrol Dospak) 4 MG tablets Follow schedule on package instructions Multiple Vitamins-Minerals (Multi For Her 50+) tablet as directed Orally pantoprazole (ProtoNix) 40 MG EC tablet Every 24 hours rOPINIRole (Requip) 2 MG tablet TAKE ONE-HALF (1/2) TABLET AT 4 P.M. THEN TAKE 1 FULL TABLET AT BEDTIME tiZANidine (Zanaflex) 4 MG tablet TAKE ONE-HALF (1/2) TO ONE TABLET TWICE A DAY NEEDED FOR PAIN zinc gluconate 50 MG tablet Every 24 hours REVIEW OF SYSTEMS: General: Denies fever, fatigue or weight loss Skin: Denies rash, sores or skin changes Eyes: Denies visual disturbance or pain GI: Denies indigestion or abdominal pain Neuro: Denies numbness or tingling, denies new onset paralysis Musculoskeletal: ( see note) PHYSICAL EXAM: Right Knee Exam Tenderness The patient is experiencing tenderness in the medial joint line. Range of Motion Extension: 5 Flexion: 110 Tests Geraldine: Medial - negative [place]: Anterior - negative Other Erythema: absent Sensation: normal Pulse: present Swelling: mild Effusion: no effusion present Vitals: There is no height or weight on file to calculate BMI. IMAGING: ASSESSMENT: ICD-10-CM 1. Primary osteoarthritis of right knee M17.11 2. Chronic pain of right knee M25.561 G89.29 L Inj/Asp: R knee on 10/04/2023 1:22 PM Indications: pain Medications: 40 mg methylPREDNISolone acetate 40 MG/ML Procedure, treatment alternatives, risks and benefits explained, specific risks discussed. Consent was given by the patient. PLAN: I reviewed exam findings with the patient and discussed treatment options, answered questions. I discussed with the patient the option of an injection. I advised the patient of risks associated with an injection including a reaction to medication, infection, failure to improve and possible worsening. The patient demonstrated understanding. Patient requesting injection. Skin Cleansed with alcohol swab. Utilizing aseptic technique patient given 40mg Depomedrol was injected. Patient tolerated this well. Neurovasc intact s/p injection. Post injection care instructions discussed. She will follow up as needed. Continue with PT. Questions answered in laymen terms at the bedside. The diagnosis, home exercise plan and any ongoing restrictions/ recommendations reviewed. If unable to be reached in office, I recommend evaluation at nearest Emergency Room if any symptoms worsened or new symptoms develop for requiring urgent evaluation. Pavan Chapman CHANNEL MAN-NUTRITION THERAPIST documented in this encounter [facility] History of Present illness Narrative 09-22-2023 Shayla Goldman, PT - 09/22/2023 1:00 PM EST Note Date & Type Note Facility 09-22-2023 History of Presen t illness Narrative Physical Therapy Physical Therapy Treatment Visit Patient Name: Twila Ceballos Today's Date: 09/22/2023 Encounter Diagnoses Name Primary? Balance disorder Yes Arthritis of right knee Visit number: 3 Supervised Time: 47 minutes Total Time: 50 minutes Time in: 1:04 PM Time out: 1:59 PM History: Pt. Presents to PT with c/c of right knee pain and balance. Pt. Had right knee scope for meniscus tear a couple years ago which she had difficulty regaining extension ROM. Report she feel 2x this summer while working in the yard (both tripping). Increased right knee pain with sit to stand transfers. Pt has been referred to OP PT for balance training and LE strengthening to help improve her quality of life and prevent future falls. Precautions: as tolerated Objective: PT Evaluation (09/13/23) Right knee ROM: extension 3 degree, flexion 115 deg Joint: normal Flexibility: mild + hamstring tightness Strength: right hip 4/5, knee 4/5 Gait: normalized gait Posture: right genu varus (moderate), arthritic bump on medial knee Balance: unable to perform SLS bilateral, fair dynamic standing balance PLOF: independent Goals: To be met by 4 weeks 1) Pt. Will report of 0/10 right knee pain while walking/standing for long periods of time to help improve her functional mobility and quality of life. 2) Pt. Will demonstrate normal right hamstring flexibility to help decrease right knee pain to improve her functional mobility with daily tasks. 3) Pt. Will demonstrate 5/5 right hip/knee strength grossly in all planes to allow her to walk/stand for long periods of time to help improve her functional mobility and quality of life to prevent falls. 4) Pt. Will demonstrate good dynamic balance to help improve her functional mobility and quality of life to prevent falls. 5) Pt. Will be independent with HEP and score 55 or greater on LEFS. Subjective/Pain: Continues to report of knee pain throughout the day. TREATMENT: Manual: Delivered manual ther to right LE / knee PROM/stretching, patella mobs to improve mobility and decrease pain (13 mins) Therapeutic Exercise: Guided patient through skilled therapeutic exercises to help improve LE strength; exercises in grid (24 minutes) 8 minutes Nustep H2 Therapeutic Activity: functional activities Neuromuscular Re-education: Static and dynamic activity using various surfaces to improve overall balance (10 mins) Modalities: Assessment: The patient has participated in 3 outpatient PT sessions since start of care on 09/13/23 for balance and R knee OA. Pt. Continues to demonstrate right LE weakness. Added more balance exercises to POC today. Pt. Was challenged with balance activities. Plan: Recommend outpatient PT 2x/week for 4-6 weeks per above PT POC pending patient progress and medical necessity standards I hereby deem this POC medically necessary. Please sign below and fax back to the number below. Physician Signature: Date: documented in this encounter [facility] Evaluation note Note Date & Type Note Facility Evaluation note Diagnosis Balance disorder- Primary Arthritis of right knee documented in this encounter [facility] Evaluation note Note Date & Type Note Facility Evaluation note Diagnosis Primary osteoarthritis of right knee- Primary Chronic pain of right knee documented in this encounter [facility] Evaluation note Note Date & Type Note Facility Evaluation note Diagnosis Balance disorder- Primary Arthritis of right knee documented in this encounter [facility] Evaluation note Note Date & Type Note Facility Evaluation note No assessment information availa [facility] Work Phone: History and physical note Note Date & Type Note Facility History and physical note Note Date/Time November 14, 2023 12:24pm [facility] [address] [place] [address] Gastroenterology H&P Signed Patient: Twila Ceballos MR#: [id number] : 1950 Acct:[id number] Age/Sex: 73 / F Adm Date: 4 Loc: Room: Type: [facility] Attending Dr: Jimmy White MD Copies to: MD Gopi Hernandez MD~ Date of Service: 11/14/2023 HISTORY & PHYSICAL: Patient's history with special attention to the cardiovascular, pulmonary systems and the current problem was reviewed with the patient immediately prior to the procedure. Present medications and doses reviewed in the EMR. Allergies and pertinent laboratory tests were also reviewedat this time in the EMR. The physical examination, as below, was then performed. Indication, assessment and HPI: 73-year-old female presents for EGD and colonoscopy to evaluate liver mass concerning for malignancy of unknown origin Family history of GI malignancy? No PHYSICAL EXAMINATION Mouth and Pharynx : Moist mucus membranes, normal dentition Cardiac: Regular rate, regular rhythm Pulmonary: Clear to auscultation bilaterally, no wheezing Neurological: Alert and oriented x3, no focal deficits noted Abdomen: Abdomen soft, non-tender REVIEW OF SYSTEMS Constitutional: Denies malaise, fevers Cardiovascular: Denies chest pain, palpitations Respiratory: Denies shortness of breath, wheezing Gastrointestinal: Per HPI Genitourinary: Denies dysuria, polyuria Musculoskeletal: Denies joint swelling, joint stiffness Neurological: Denies numbness, tingling Integumentary: Denies rashes, skin lesions Endocrine: Denies fatigue, weight loss Written informed consent obtained from the patient. Risks (including but not limited to perforation, infection, bloating, bleeding, need for emergent surgeryand loss of life), benefits and alternatives explained and questions answered. The patient verbalized understanding. Based on history patient is an appropriate candidate for the procedure. Jimmy White MD Documented By: Jimmy White MD 11/14/23 1223 Signed By: <Electronically signed by Jimmy White MD> 11/14/23 1224 [facility] Work Phone: Summary Purpose Family History No Family History Records Found Relationship Condition Age at Onset Recorded Date/T tegan Not Specified High blood cholesterol Unknown Heart disease Unknown sister Malignant neoplasm Unknown father Malignant neoplasm Unknown Not Specified Malignant neoplasm of esophagus Unknown Advance Directives No Advanced Directives Records Found Advance Directive Response Recorded Date/ Time Advance Directives No November 09, 2 024 9:44am Reason for Referral Specialty Diagnoses / Procedures Referred By Rossy terrell Referred To Contact Orthopaedic Surgery Diagnoses Primary osteoarthritis of right knee Procedures L Inj/Asp: R knee Pavan Chapman, IT RISK AND ASSURANCE SENIOR MANAGER [address] [place] [address] Referral ID Status Reason Start Date Expiration Date V isits Requested Visits Authorized [id number] Pending Review 10/04/2023 04/01/2024 1 1 Chief Complaint and Reason for Visit Chief Complaint liver mass Chief Complaint liver mass elevated white blood cells, anemia, liver mass. elevated white blood cells, anemia, liver mass. Additional Source Comments INFORMATION SOURCE (unrecogn ized section and content) DATE CREATED AUTHOR 06/24/2021 [facility] DATE CREATED AUTHOR 'S ORGANIZ ATION 10/25/2023 [facility] EPIC DATE CREATED AUTHOR AUTHOR'S ORGANIZ ATION 11/19/2023 [facility] Care Teams (unrecognized sec tion and content) Circuit Tester Relationship Specialty Start Date End Date Juana Acharya MD [address] [place] [facility] [place] [address] PCP - General Family Medicine 08/31/23 Shantell Le NP [address] [place] [address] Nurse Practitioner Family Medicine 08/31/23 Circuit Tester Relationship Specialty Start Date End Date Juana Acharya MD [address] [place] [address] PCP - General Family Medicine 08/31/23 Shantell Le NP [address] [place] [address] Nurse Practitioner Family Medicine 08/31/23 Circuit Tester Relationship Specialty Start Date End Date Juana Acharya MD [address] [facility] [place] [address] PCP - General Family Medicine 08/31/23 Shantell Le NP [address] [place] [address] Nurse Practitioner Family Medicine 08/31/23 Circuit Tester Relationship Specialty Start Date End Date Juana Acharya MD [address] [facility] [place] [address] PCP - General Family Medicine 08/31/23 Shantell Le NP [address] [place] [address] Nurse Practitioner Family Medicine 08/31/23 Circuit Tester Relationship Specialty Start Date End Date Juana Acharya MD [address] [place] [address] PCP - General Family Medicine 08/31/23 Shantell Le NP [address] [place] [address] Nurse Practitioner Family Medicine 08/31/23 Circuit Tester Relationship Specialty Start Date End Date Juana Acharya MD [address] [place] [address] PCP - General Family Medicine 08/31/23 Shantell Le NP [address] [place] [address] Nurse Practitioner Family Medicine 08/31/23 Circuit Tester Relationship Specialty Start Date End Date Juana Acharya MD [address] [place] [address] PCP - General Family Medicine 08/31/23 Shantell Le NP [address] [place] [address] Nurse Practitioner Family Medicine 08/31/23 Team Status: Active Member Role Status Dates Gopi Camara MD Primary Care Provider Active Team Status: Inactive Member Role Status Allan Varela MD Attending Provider Active St art: November 11, 2023 End: November 11, 2023 Gopi Camara MD Primary Care Provider Active Start: November 11, 2023 End: November 11, 2023 Team Status: Inactive Member Role Status Dates Gopi Camara MD Primary Care Provider Active Start: November 14, 2023 End: November 14, 2023 Jimmy White MD Attending Provider Active S tart: November 14, 2023 End: November 14, 2023 Team Status: Active Member Role Status Dates Gopi Camara MD Primary Care Provider Active Start: November 14, 2023 Jimmy White MD Attending Provider, Other Provider Active Start: November 14, 2023 Reason for Visit (unrecogniz ed section and content) Specialty Diagnoses / Procedures Referred By Rossy terrell Referred To Contact Physical Therapy Diagnoses Balance disorder Arthritis of right knee Procedures MI OFFICE/OUTPATIENT NEW HIGH MDM 60 MINUTES Shantell Le IT RISK AND ASSURANCE SENIOR MANAGER [address] [place] [address] Shayla Goldman, PT [address] [address] [place] [address] Referral ID Status Reason Start Date Expiration Date Visits Requested Visits Authorized [id number] Authorized Specialty Services Required 08/31/2023 02/27/2024 30 30 Reason Onset Date Comments Cx PT today 09/29/2023 She called silvia jalloh an unexpectant request came up and unable to make PT today; she confirmed 10/04. Reason Comments Pain Goals (unrecognized section and content) Goals may be documented in a n alternate section FOR RECORDS PERTAINING TO PATIENTS WHO ARE OR HAVE BEEN ENROLLED IN A CHEMICAL DEPENDENCY/SUBSTANCEABUSE PROGRAM, SOME INFORMATION MAY BE OMITTED. This clinical summary was aggregated from multiple sources. Caution should be exercised in using it in the provision of clinical care. This summary normalizes information from multiple sources, and as a consequence, information in this document may materially change the coding, format and clinical context of patient data. In addition, data may be omitted in some cases. CLINICAL DECISIONS SHOULD BE BASED ON THE PRIMARY CLINICAL RECORDS. [employer] provides no warranty or guarantee of the accuracy or completeness of information in this document.
== END 2023-11-24 08:21 | disposition home or self-care (01) ==
LOC: US 08:20
PROVIDERS: PCP Family Medicine; Visit Provider Internal Medicine Hematology & Oncology
DX: D72.829 Elevated white blood cell count, unspecified (principal); D64.9 Anemia, unspecified; D49.0 Neoplasm of unspecified behavior of digestive system; C44.319 Basal cell carcinoma of skin of other parts of face
CPT/HCPCS: 76705

== ENCOUNTER 2023-11-28 09:24 | Inpatient (IN) | payer MEDICARE, SELFPAY ==
[2023-11-28] VITALS (8 sets, daily range): BP systolic 92–122; BP diastolic 57–79; PULSE 83–91; TEMP 36.8–37.6; O2SAT 91–97; BMI 24.1; BMI 23.8
--- OUTSIDE RECORDS SUMMARY | 2023-11-28 09:58 | XMS_ITS | CCD ---
Author Organization [facility] Care Team Providers Care Web User Experience Strategist Name Role Phone DR SANTIAGO CONNOLLY Attending Unavailable DR SANTIAGO CONNOLLY Admitting Unavailable YAROSPANKAJ Carrasqulilo Consulting Unavailable AHDOOTSUSANNAH Consulting Unavailable Juana Acharya MD Primary Care Provider Mimi MOBILE HOME SERVICER, Shantell Orozco Unavailable MIMI, SHANTELL Orozco Attending [...] Attending Unavailab MD Abby Fox Attending Provider MD Gopi Camara Primary Care Provider MD Jimmy White Attending Provider Jimmy White Admitting Unavailable Jimmy White Attending Unavailable Gopi Camara Primary Care Unavailable Nichole, Abby Admitting Unavailable Nichole, Abby Attending Unavailable Gopi Camara Primary Care Unavailable Allergies Allergy Classification Reported Allergen(s) Allergy Type Date of Onset Reaction(s) Facility (1 source) Sulfonamides (Antibiotic) Drug allergy (disorder) [facility] (9 sources) Iodine Drug Allergy 9 Hives, Shortness of breath [facility] (11 sources) Latex Propensity to adverse reactions 9 Rash [facility] (9 sources) Sulfonamides (Antibiotic) Drug Intolerance 9 Hives [facility] (11 sources) Iodinated Contrast Media Drug Allergy 1 Unknown [facility] (3 sources) Sulfonamides (Antibiotic); Translations: [Sulfa (Sulfonamide Antibiotics)] Allergy to substance 4 [facility] (3 sources) Gadolinium-Conta ining Contrast Medi; Translations: [Gadolinium-Cont aining Contrast Medi] Allergy to substance 4 [facility] (1 source) Latex Drug allergy (disorder) 4 [facility] Repository (1 source) Iodinated Contrast Media Drug allergy (disorder) 4 [facility] Repository Medications Current Medications Medication Drug Class(es) [...] Start: 08-31-2023 take 1 capsule by mo [facility] in the morning DULoxetine (Cymbalta) 30 MG [...] 1 tablet by mouth in the mo [facility] meloxicam (Mobic) 15 MG tablet Take 1 tablet by mouth in the morning. 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 (1 source) Neoplasm of unspecified behavior of digestive system; Translations: [Neoplasm of unspecified behavior of digestive system] Onset: 4 Episodic Osteoarthritis (13 sources) Localized, primary osteoarthritis of the hand; Translations: [Primary osteoarthritis, unspecified hand] Onset: 0 01-19-2023 Chronic Other aftercare (1 source) Other jail (current) drug therapy; Translations: [OTH [facility] CURRENT DRUG THERAPY] Onset: 1 Episodic Other [...] [SPRAIN UNS SITE RT KNEE INITIAL] Onset: Episodic Past or Other Problems Problem Classification [...] (PPP) [Time] 28.2 s 25.1-36.5 [facility] Comment on above: A hematocrit value g reater than 55% may lead to inaccurate results in coagulation testing. Patients having hematocrit values >55% require a special collection tube for coagulation studies. Please contact the laboratory at [phone] for redraw instructions. Coagulation Profileon 2023 aPTT Coag (Bld) [Time] 28.2 s Normal 25.1-36.5 [facility] Comment on above: Order Comment: STAT FOR US BX Result Comment: A he matocrit value greater than 55% may lead to inaccurate results in coagulation testing. Patients having hematocrit values >55% require a special collection tube for coagulation studies. Please contact the laboratory at [phone] for redraw instructions. PERFORMED BY: [place] [id number] PATHOLOGIST [employer] BOARDS DOROTEO BANKS M.D. Performed By: #### P LT, PP #### [facility] [address] [place], [place] [id number] [facility] INR Coag (PPP) [Relative time] 1.6 {INR} Normal [facility] Comment on above: Order Comment: STAT FOR [...] Performed By: #### P LT, PP #### [facility] [address] [place] [address] [place] PT Coag (PPP) [Time] 17.9 s High 9.0-12.9 [facility] Comment on above: Order Comment: STAT FOR US BX Result Comment: A he matocrit value greater than 55% may lead to inaccurate results in coagulation testing. Patients having hematocrit values >55% require a special collection tube for coagulation studies. Please contact the laboratory at [phone] for redraw instructions. Performed By: #### P LT, PP #### [facility] [address] [place] [address] [place] INR in Platelet poor plasma by Coagulation assayOrdered By: Abby Varela on 11-11-2023 INR Coag (PPP) [Relative time] 1.6 {INR} [facility] Comment on above: INR Therapeutic Rang e [...] 3 - 4.5 Jet 11-11-2023 L Specimen: Received: 11/11/23 Status: KAYCE Felton Num: [id number] Spec Type: Surgical Subm Dr: Yamil Cano DO Tissues: A Liver - Needle Biopsy (LT LIVER LOBE) Procedures: PAS - LGRN, MART 1/MARCEL A, HE/2, Gross/Micro L5, GMS II Dark, AE1-AE3, CD68, CK20, CK 7, SOX-10, DIFF QWIK/2 Age/ Patient Sex Location Account Attending Physician Twila Ceballos 73/F [id number] Abby Varela MD SPEC NUM: [id number] RECD: 11/11/23 STATUS: KAYCE FELTON NUM: [id number] TERESA: 11/11/[address]: Yamil Cano DO ENTERED: 11/11/[address] [facility] [address]: SPEC TYPE: Surgical DEPT: S [...] submitted in one cassette labeled A1. Specimen: [id number] Received: 11/11/23 Status: KAYCE Felton Num: [id number] Spec Type: Surgical Subm Dr: Yamil Cano DO Tissues: A Liver - Needle Biopsy (LT LIVER LOBE) Procedures: PAS - LGRN, MART 1/MARCEL A, HE/2, Gross/Micro L5, GMS II Dark, AE1-AE3, CD68, CK20, CK 7, SOX-10, DIFF QWIK/2 Patient: Twila Ceballos [id number] (Continued) Specimen: [id number] Received: 11/11/23 (Continued) Signed (signature on file) Dayday Ford MD 11/15/231757 Specimen: [id number] Received: 11/11/23 Status: KAYCE Felton Num: [id number] Spec Type: Surgical Subm Dr: Yamil Cano DO Tissues: A Liver - Needle Biopsy (LT LIVER LOBE) Procedures: PAS - LGRN, MART 1/MARCEL A, HE/2, Gross/Micro L5, GMS II Dark, AE1-AE3, CD68, CK20, CK 7, SOX-10, DIFF QWIK/2 Patient: Twila Ceballos [id number] (Continued) Specimen: [id number] Received: 11/11/23 (Continued) Intraoperative Diagnosis A. Liver biopsy (left liver lobe per requisition): - Neutrophilic inflammation. No malignant cells seen. Portion of specimen sent for cultures. Reported by Dr. Grullon 11/11/2023 at 11:55 AM CPT Codes 84477, 47805 Specimen: [id number] Received: 11/11/23-1258 Status: KAYCE Felton Num: [id number] Spec Type: Surgical Subm Dr: Yamil Cano DO Tissues: A Liver - Needle Biopsy (LT LIVER LOBE) Procedures: PAS - LGRN, MART 1/MARCEL A, HE/2, Gross/Micro L5, GMS II Dark, AE1-AE3, CD68, CK20, CK 7, SOX-10, DIFF QWIK/2 Patient: Twila Ceballos [id number] (Continued) Signed (signature on file) Dayday Ford MD 11/15/23 938 Normal [facility] No Panel InformationOrdered By: Gopi Camara on 11-11-2023 Mycobacterium Identification N/A [facility] Mycology Susceptibility N/A [facility] Platelet Counton 11-11-2023 Platelets (Bld) [#/Vol] 675 10*3/uL High 150-450 [facility] Comment on above: Order Comment: STAT FOR US BX Result Comment: PERF ORMED BY: [place] [address] PATHOLOGIST [employer] BOARDS DOROTEO BANKS M.D. Performed By: #### P LT, PP #### [place] [address] [place] Platelets Auto (Bld) [#/Vol] Ordered By: Abby Varela on 11-11-2023 Platelets (Bld) [#/Vol] 675 10*3/uL 150-450 [facility] Prothrombin time (PT)Ordered By: Abby Varela on 11-11-2023 PT Coag (PPP) [Time] 17.9 s 9.0-12.9 [facility] Comment on above: A hematocrit value g reater than 55% may lead to inaccurate results in coagulation testing. Patients having hematocrit values >55% require a special collection tube for coagulation studies. Please contact the laboratory at [phone] for redraw instructions. US needle biopsyon [address] [facility] [place] [address] [place], [place] [address] Ultrasound Report Signed Patient: Twila Ceballos MR#: [id number] : 1950 Acct:[id number] Age/Sex: 73 / F ADM Date: 11/11/23 Loc: Room: Type: [facility] Attending Dr: Abby Varela MD Ordering Provider: Abby Varela MD Date of Service: 11/11/23 US/US needle [...] Yamil Cano M.D.11/11/2023 3:15 PM Dictation Location: [place] [address] Tech: Hansa Azar Transcribed By: GUERDA 11/11/23 1515 Dictated By: Ymail Cano DO 11/11/23 151 Signed By: 11/11/23 151 [facility] No Panel Informationon 10-04 Pavan Chapman NP 10/04/2023 1:23 PM L Inj/Asp: R knee on 10/04/2023 1:22 PM Indications: pain Medications: 40 mg methylPREDNISolone acetate 40 MG/ML Procedure, treatment alternatives, risks and benefits explained, specific risks discussed. Consent was given by the patient. Smithers Avanza CT HEAD WO IV CONTRASTon CT HEAD [...] by: SUSANNAH HOUSE Date: 2021-06-18 20:29 Normal [facility] Vital Signs Date Time Vital Sign Value Performing Clinician Faci lity 11-14-2023 12:52-0400 Diastolic blood pressure 73 mm[Hg] MD Gopi Camara Work Phone: [facility] 11-14-2023 12:52-0400 Heart rate 65 /min MD Gopi Camara Work Phone: [facility] 11-14-2023 12:52-0400 Respiratory rate 16 /min MD Gopi Camara Work Phone: [facility] 11-14-2023 12:52-0400 SaO2% (BldA) [Mass fraction] 94 % MD Gopi Camara Work Phone: [facility] 11-14-2023 12:52-0400 Systolic blood pressure 112 mm[Hg] MD Gopi Camara Work Phone: [facility] 11-14-2023 10:55-0400 Body height 165.1 cm MD Gopi Camara Work Phone: [facility] 11-14-2023 10:55-0400 Body temperature 98 [degF] MD Gopi Camara Work Phone: [facility] 11-14-2023 10:55-0400 Body weight 67.13 kg MD Gopi Camara Work Phone: [facility] 11-11-2023 12:55-0400 Diastolic blood pressure 60 mm[Hg] MD Gopi Camara Work Phone: [facility] 11-11-2023 12:55-0400 Heart rate 80 /min MD Gopi Camraa Work Phone: [facility] 11-11-2023 12:55-0400 Respiratory rate 18 /min MD Gopi Camara Work Phone: [facility] 11-11-2023 12:55-0400 SaO2% (BldA) [Mass fraction] 94 % MD Gopi Camara Work Phone: [facility] 11-11-2023 12:55-0400 Systolic blood pressure 114 mm[Hg] MD Gopi Camara Work Phone: [facility] 11-11-2023 10:34-0400 Body height 165.1 cm MD Gopi Camara Work Phone: [facility] 11-11-2023 10:34-0400 Body weight 65.77 kg MD Gopi Camara Work Phone: [facility] Encounters Encounter Date Encounter Type Care Provider Facility Start: 11-14-2023 Non-patient / Non-visit MD Emilio Camara Work Phone: [facility] Work Phone: Start: 11-14-2023 End: 11-14-2023 ambulatory Jimmy White Facility:[facility] Start: 11-14-2023 End: 11-14-2023 Admission to same day surgery center MD Gopi Camara Work Phone: [facility] Work Phone: Start: 11-14-2023 End: 11-14-2023 ambulatory MD Gopi Camara Work Phone: [facility] Work Phone: Start: 11-11-2023 End: 11-11-2023 ambulatory Abby Nichole Facility:[facility] Start: 11-11-2023 End: 11-11-2023 Admission to same day surgery center MD Gopi Camara Work Phone: [facility] [place] Work Phone: Start: 11-11-2023 End: 11-11-2023 ambulatory MD Gopi Camara Work Phone: [facility] Work Phone: Start: 10-24-2023 End: 10-24-2023 ambulatory LENNY GARCIA Not Available Start: 10-10-2023 End: 10-10-2023 ambulatory KORINA OKEEFE Not Available Start: 10-06-2023 End: 10-06-2023 ambulatory SHAYLA GOLDMAN Not Available Start: 10-06-2023 Bamboo flowsheet Shayla stewart PT Work Phone: [facility] Start: 10-06-2023 Bamboo flowsheet Shayla stewart PT Work Phone: [facility] Start: 10-04-2023 End: 10-05-2023 ambulatory VERONICA COLLINS Not Available Start: 10-04-2023 Bamboo flowsheet Veronicamani Collins PT A [facility] Start: 10-04-2023 Bamboo flowsheet Veronica Yonas PT A [facility] Start: 10-04-2023 End: 10-04-2023 Office outpatient visit 25 minutes Pavan Chapman MOBILE HOME SERVICER Work Phone: [facility] Comment on above: Primary osteoarthrit is of right knee (Primary Dx); Chronic pain of right knee Start: 10-04-2023 End: 10-04-2023 Treatment Veronica Collins INDUCTION COORDINATION POWER ENGINEER [facility] Comment on above: Balance [...] knee Start: 09-20-2023 End: 09-21-2023 ambulatory ROXANNA BORWN Not Available Start: 09-14-2023 End: 09-14-2023 ambulatory SHANTELL A LE Not Available Start: 09-13-2023 End: 09-14-2023 ambulatory SHANTELL A LE Not Available Start: 09-13-2023 End: 09-13-2023 [...] Start: 10-04-2023 Arthrocentesis aspir&/inj major jt/bursa w/o Pavan T Sita MOBILE HOME SERVICER Work Phone: Start: 05-30-2023 Mammography Shayla Goldman PT Work Phone: Plan of Treatment Date Care Activity Detail Author Start: 06-21-2024 Medicare Annual Wellness (AWV) Medicare Annual Wellness (AWV) [facility] Start: 05-30-2024 Screening for malignant neoplasm of breast Mammogram [facility] Start: 05-12-2024 Screening for malignant neoplasm of colon [facility] Start: 11-14-2023 [facility] Start: 11-11-2023 Microscopic observation [Identifier] in Unspecified specimen by Gram stain Gram Stain [facility] Start: 11-11-2023 End: 11-11-2023 [facility] Start: 11-11-2023 Ultrasonic guidance for needle biopsy [facility] Start: 10-20-2023 End: 10-20-2023 ambulatory 10/20/2023 11:00 AM EST Treatment [facility] [address] [place] [address] Shayla Goldman, PT [address] [facility] [address] [place] [address] [facility] Start: 10-18-2023 End: 10-18-2023 ambulatory 10/18/2023 10:30 AM EST Treatment [facility] [address] [place] [address] Shayla Goldman, PT [address] [place] [address] [facility] Start: 10-17-2023 End: 10-17-2023 ambulatory 10/17/2023 10:00 AM EST Treatment [facility] [address] [place] [address] Shayla Goldman, PT [address] [place] [address] [facility] Start: 10-13-2023 End: 10-13-2023 ambulatory 10/13/2023 11:00 AM EST Treatment [facility] [address] [place] [address] Shayla Goldman, PT [address] [place] [address] [facility] Start: 10-11-2023 End: 10-11-2023 Patient encounter procedure 10/11/2023 3:15 PM EST Office Visit [facility] [address] [place] [id number] Silvia Moran, DPM [address] [place] [address] [facility] Start: 10-11-2023 End: 10-11-2023 ambulatory 10/11/2023 10:30 AM EST Treatment [facility] [address] [place] [address] Shayla Goldman, PT [address] [place] [address] [facility] Start: 10-10-2023 End: 10-10-2023 Social Work 10/10/2023 1:00 PM EST Social Work [facility] [address] [place] [facility] [address] Korina Okeefe, CUT PLUG PACKER-[employer] [address] [facility] [place] [facility] [place] [address] [facility] Start: 10-06-2023 End: 10-06-2023 ambulatory [facility] Start: 10-04-2023 End: 10-04-2023 Patient encounter procedure 10/04/2023 1:00 PM EST Office Visit [facility] [address] [place] [address] Pavan Chapman, MOBILE HOME SERVICER [address] [place] [address] [facility] Start: 10-04-2023 End: 10-04-2023 ambulatory [facility] Start: 09-29-2023 End: 09-29-2023 ambulatory 09/29/2023 4:30 PM EST Treatment [facility] [address] [facility] [address] [place] [address] Shayla Goldman, PT [address] [facility] [address] [place] [address] [facility] Start: 09-27-2023 End: 09-27-2023 ambulatory 09/27/2023 8:30 AM EST Treatment [facility] [address] [facility] [address] [place] [id number] Shayla Goldman, PT [address] [facility] [address] [place] [address] [facility] Start: 1950 Screening for malignant neoplasm of colon [facility] Fungus identified in Unspecified specimen by Culture [facility] Microscopic observat ion [Identifier] in Unspecified specimen by Smear [facility] Mycobacterium sp identified in Unspecified specimen by Organism specific culture [facility] Patient Education [facility] Live r Biopsy Discharge Instructions [facility] Work Phone: Immunizations Immunization Date Immunization Notes Care Provider Fa [facility] 06-18-2023 tetanus toxoid, redu jay diphtheria toxoid, and acellular pertussis vaccine, adsorbed Shayla Goldman PT Work Phone: [facility] Work Phone: 04-28-2023 Influenza, Seasonal, Quadrivalent, Adjuvanted Shayla Goldman PT Work Phone: [facility] 04-28-2023 Pneumococcal Conjuga te PCV 20 Shayla Goldman PT Work Phone: [facility] 04-28-2023 RSV, recombinant, protein subunit RSVpreF, adjuvant reconstitu, 120mcg/0.5mL, PF (Arexvy) Shayla Goldman PT Work Phone: [facility] 05-14-2022 Influenza, Seasonal, Quadrivalent, Adjuvanted Shayla Goldman PT Work Phone: [facility] 05-06-2022 Moderna Bivalent Tello ster Vaccination Shayla Goldman PT Work Phone: [facility] 05-06-2022 Moderna SARS-CoV-2 50mcg/0.5mL Booster Shayla Goldman PT Work Phone: [facility] 04-16-2021 Influenza, High-dose Seasonal, Quadrivalent, Preservative Free Shayla Goldman PT Work Phone: [facility] 04-29-2020 influenza, injectabl e, quadrivalent, preservative free Shayla Goldman PT Work Phone: [facility] 05-04-2019 Seasonal trivalent influenza vaccine, adjuvanted, preservative free Shayla Goldman PT Work Phone: [facility] 05-10-2018 zoster vaccine recombinant Shayla Goldman PT Work Phone: [facility] 04-14-2018 influenza, seasonal, injectable, preservative free Shayla Goldman PT Work Phone: [facility] 04-13-2018 influenza virus vacc ine, split virus (incl. purified surface antigen) Shayla Goldman PT Work Phone: [facility] 04-11-2018 influenza, injectabl e, quadrivalent, preservative free Shayla Goldman PT Work Phone: [facility] 12-21-2017 zoster vaccine recombinant Shayla Goldman PT Work Phone: [facility] 05-23-2017 influenza, injectabl e, quadrivalent, preservative free Shayla Goldman PT Work Phone: [facility] 05-23-2017 pneumococcal polysaccharide vaccine, 23 valent Shayla Goldman PT Work Phone: [facility] 06-02-2016 influenza, injectabl e, quadrivalent, preservative free Shayla Goldman PT Work Phone: [facility] 06-02-2016 pneumococcal conjuga te vaccine, 13 valent Shayla Goldman PT Work Phone: [facility] 05-28-2015 influenza, injectabl e, quadrivalent, preservative free Shayla Goldman PT Work Phone: [facility] 05-28-2015 pneumococcal conjuga te vaccine, 13 valent Shayla Goldman PT Work Phone: [facility] 05-22-2015 seasonal influenza, intradermal, preservative free Shayla Goldman PT Work Phone: [facility] 05-22-2014 pneumococcal polysaccharide vaccine, 23 valent Shayla Goldman PT Work Phone: [facility] 12-25-2012 tetanus toxoid, redu jay diphtheria toxoid, and acellular pertussis vaccine, adsorbed Shayla Goldman PT Work Phone: [facility] 10-13-2009 novel influenza-H1N1 -09, preservative-free, injectable Shayla Goldman PT Work Phone: [facility] Payers Date Payer Category Payer Self-pay 2022 Unknown AARP AARP [id number] 2022-Present [address] [place] [address] [id number] 2022 Unknown [id number] 2017 Medicare MEDICARE MEDICAR E PART B [id number] 2017-[place] [address] Medicare [id number] 2017 Medicare [id number] 1959 Medicare [id number] 1950 Unknown [id number] [id number] 1950 Unknown [id number] 2.16.840.1.241027.3.579.2.1259 1950 Unknown [id number] 2.16.840.1.420442.3.579.2.1259 1950 Unknown [id number] 2.16.840.1.365944.3.579.2.1259 1950 Unknown [id number] 2.16.840.1.096971.3.579.2.1259 1950 Unknown [id number] 2.16.840.1.154382.3.579.2.1259 1950 Unknown [id number] 2.16.840.1.956508.3.579.2.1259 1950 Unknown [id number] 2.16.840.1.163538.3.579.2.1259 1950 Unknown [id number] 2.16.840.1.046618.3.579.2.1259 1950 Unknown [id number] 2.16.840.1.902378.3.579.2.1259 1950 Unknown [id number] 2.16.840.1.920392.3.579.2.1259 1950 Unknown [id number] 2.16.840.1.556034.3.579.2.1259 1950 Unknown [id number] 2.16.840.1.611294.3.579.2.1259 Unknown [id number] 2.16.840.1.848021.3.579.2.531 Unknown [id number] 2.16.840.1.282544.3.579.2.531 Social History Date Type Detail Facility Start: 01-19-2023 Tobacco smoking stat [facility] Never smoked tobacco [facility] Start: 01-19-2023 [...] to any clubs or organizations such as buddhist groups, [employer], fraApplitools or athletic groups, or school groups? Yes [...] Not at all [facility] (I/We) worried [place] er (my/our) food would run out before (I/we) got money to buy more. Never true [facility] Start: 04-05-2023 Alcohol Comment caffeine: none [facility] Start: 1950 Sex Assigned At Not on file [facility] Start: 1950 Sex Assigned At Female F [facility] Goals Date Patient Goal Desired Activity /State Procedure note 11-14-2023 Note Date & Type Note Facility 11-14-2023 Procedure note [facility] History of Present illness Narrative 10-04-2023 Pavan hCapman NP - 10/04/2023 1:00 PM EST Note Date & Type Note Facility 10-04-2023 History of Uriel terrell illness Narrative Associated Order(s): L Inj/Asp: R [...] AGO. MDP 02/2022, 02/2023 PHYSICAL THERAPY @ [facility] DID NOT TAKE MDP 02/2023 CURRENTLY DOING PT AT [facility], SOME RELIEF. SORENESS MEDIAL AND LATERAL. [...] develop for requiring urgent evaluation. 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 documented in this encounter [facility] History [...] Physician Signature: Date: documented in this encounter [facility] Evaluation note Note Date & Type Note Facility Evaluation note Diagnosis Balance disorder- Primary Arthritis of right knee documented in this encounter [facility] Evaluation note Note Date & Type Note Facility Evaluation note Diagnosis Primary osteoarthritis of right knee- Primary Chronic pain of right knee documented in this encounter [facility] Evaluation note Note Date & Type Note Facility Evaluation note Diagnosis Balance disorder- Primary Arthritis of right knee documented in this encounter [facility] Evaluation note Note Date & Type Note Facility Evaluation note No assessment information availa [facility] Work Phone: History and physical note Note Date & Type Note Facility History and physical note Note Date/Time November 14, 2023 12:24pm [facility] [address] [place] [address] Gastroenterology H&P Signed Patient: Twila Ceballos MR#: [id number] : 1950 Acct:[id number] Age/Sex: 73 / F Adm Date: 4 Loc: Room: Type: [facility] Attending Dr: Jimmy White MD Copies to: [...] signed by Jimmy White MD> 11/14/23 1224 [facility] Work Phone: Summary Purpose Family History No Family History Records Found Relationship Condition Age at Onset Recorded Date/T tegan Not Specified High blood cholesterol Unknown Heart disease Unknown sister Malignant neoplasm Unknown father Malignant neoplasm Unknown Not Specified Malignant neoplasm of esophagus Unknown Advance Directives No Advanced Directives Records Found Advance Directive Response Recorded Date/ Time Advance Directives No November 09, 024 9:44am Reason for Referral Specialty Diagnoses / Procedures Referred By Rossy t Referred To Contact Orthopaedic Surgery Diagnoses Primary osteoarthritis of right knee Procedures L Inj/Asp: R knee Pavan Chapman, MOBILE HOME SERVICER [address] [place] [address] Referral ID Status Reason Start Date Expiration Date V isits Requested Visits Authorized [id number] Pending Review 10/04/2023 04/01/2024 1 1 Chief Complaint and Reason for Visit Chief Complaint liver mass Chief Complaint liver mass elevated white blood cells, anemia, liver mass. elevated white blood cells, anemia, liver mass. Additional Source Comments INFORMATION SOURCE (unrecogn ized section and content) DATE CREATED AUTHOR 06/24/2021 [facility] DATE CREATED AUTHOR AUTHOR'S ORGANIZ ATION 10/25/2023 [facility] Specialists EPIC DATE CREATED AUTHOR AUTHOR'S ORGANIZ ATION 11/24/2023 [facility] Care Teams (unrecognized sec tion and content) Web User Experience Strategist Relationship Specialty Start Date End Date Juana Acharya MD [address] [place] [facility] [place] [address] PCP - General Family Medicine 08/31/23 Shantell Le NP [address] [place] [facility] [place] [address] Nurse Practitioner Family Medicine 08/31/23 Web User Experience Strategist Relationship Specialty Start Date End Date Juana Acharya MD [address] [place] [facility] [place] [address] PCP - General Family Medicine 08/31/23 Shantell Le [employer]BI[employer] HOME SERVIC[employer] [address] [facility] [place] [address] Nurse Practitioner Family Medicine 08/31/23 Web User Experience Strategist Relationship Specialty Start Date End Date Juana Acharya MD [address] [place] [facility] [place] [address] PCP - General Family Medicine 08/31/23 Shantell Le NP [address] [place] [address] Nurse Practitioner Family Medicine 08/31/23 Web User Experience Strategist Relationship Specialty Start Date End Date Juana Acharya MD [address] [address] PCP - General Family Medicine 08/31/23 Shantell Le NP [address] [place] [address] Nurse Practitioner Family Medicine 08/31/23 Web User Experience Strategist Relationship Specialty Start Date End Date Juana Acharya MD [address] [place] [address] PCP - General Family Medicine 08/31/23 Shantell Le NP [address] [place] [address] Nurse Practitioner Family Medicine 08/31/23 Web User Experience Strategist Relationship Specialty Start Date End Date Juana Acharya MD [address] [place] [address] PCP - General Family Medicine 08/31/23 Shantell Le NP [address] [place] [address] Nurse Practitioner Family Medicine 08/31/23 Web User Experience Strategist Relationship Specialty Start Date End Date Juana Acharya MD [address] [place] [address] PCP - General Family Medicine 08/31/23 Shantell Le NP [address] [place] [address] Nurse Practitioner Family Medicine 08/31/23 Team Status: Active Member Role Status Dates Gopi Camara MD Primary Care Provider Active Team Status: Inactive Member Role Status Dates Abby aVrela MD Attending Provider Active St art: November [...] Specialty Diagnoses / Procedures Referred By Rossy t Referred To Contact Physical Therapy Diagnoses Balance disorder Arthritis of right knee Procedures [place] OFFICE/OUTPATIENT NEW HIGH MDM 60 MINUTES Shantell Le, MOBILE HOME SERVICER [address] [place] [address] Shayla Goldman, PT [address] [facility] [address] [place] [address] Referral ID Status Reason Start Date Expiration Date Visits Requested Visits Authorized [id number] Authorized Specialty Services Required 08/31/2023 02/27/2024 30 [...] BE BASED ON THE PRIMARY CLINICAL RECORDS. [facility]. provides no warranty or guarantee of the accuracy or completeness of information in this document.
--- NOTE | 2023-11-28 10:00 | CT_ITS ---
[address] [address] Patient Name: DIVYA ARRIAGA MRN: [id number] date: 1950 Sex: F Assigned Patient Location: ER Current Patient Location: ER Accession/Order Number: [id number] Exam Date: 11/28/2023 10:21 Report Date: 11/28/2023 10:49 At the request of: ABBY TRIPATHI Procedure: CT abdomen pelvis wo con EXAMINATION: CT abdomen pelvis wo con HISTORY: abdominal abscess ; pain and erythema of abdominal wall in area of recent liver biopsy COMPARISON: Ultrasound abdomen 11/24/2023, CT abdomen pelvis 10/26/2023 TECHNIQUE: Axial, Coronal, and Sagittal images were obtained without and/or with IV contrast as indicated by examination type. Dose reduction techniques were achieved by using automated exposure control and/or adjustment of mA and/or kV according to patient size and/or use of iterative reconstruction technique. FINDINGS: LUNG BASES: Curvilinear stranding suspected to represent discoid atelectasis. LIVER: 4.7 cm slightly hypodense heterogeneous area within left hepatic lobe, smaller than previously seen. New density between the left hepatic lobe and anterior abdominal wall approximately 6.7 cm in diameter by 1.8 cm in thickness. New masslike 6.6 x 3.7 cm area within adjacent anterior abdominal wall musculature, and 8.0 x 3.1 cm area within overlying subcutaneous fat. BILIARY: No dilatation or calcification. PANCREAS: No lesion, fluid collection, or abnormal duct dilatation. SPLEEN: No enlargement or focal lesion. ADRENALS: No mass or enlargement. KIDNEYS: No mass, obstruction, or calcification. BOWEL/MESENTERY: Mild wall thickening and inflammatory changes involving the sigmoid colon. Multiple small diverticula along the sigmoid:; No free air or free fluid. AORTA/VASCULAR: No aneurysm or dissection. RETROPERITONEUM: No mass or adenopathy. LYMPH NODES: No adenopathy. URINARY BLADDER: No visible focal wall thickening, lesion, or calculus. PELVIC ORGANS: No visible mass. Pelvic organs appropriate for patient age. ABDOMINAL WALL: No mass or hernia. BONES: Grade 1 anterolisthesis of L5 on S1 secondary to degenerative disc disease and facet arthropathy; no pars defects. Multilevel degenerative disc disease of lower thoracic spine. OTHER: Negative. CT/CT abdomen pelvis wo con IMPRESSION: 1. Interval development of dense fluid collection/inflammatory changes within anterior abdominal wall, subcutaneous fat, and between the liver and anterior abdominal wall post biopsy; abscess versus hematoma. No free air to correspond with an abscess. I suspect findings have increased since prior ultrasound study on 11/24/2023, however, given the differences in technique this cannot be confirmed. Today's study was performed without IV contrast which limits evaluation. 2. Distal sigmoid colon mild acute versus chronic diverticulitis/colitis; grossly stable. Electronically authenticated by: JAZMIN LAZO Date: 11/28/2023 10:49
[2023-11-28] MEDS: HYDROMORPHONE HCL 0.5 MG/0.5 ML SYRINGE IV (10:06)
[2023-11-28] MEDS: ONDANSETRON PF 4 MG/2 ML VIAL IV (10:06)
[2023-11-28 10:12] LABS: Basophils Absolute Auto 0.1 10^3/uL (0.0-0.1); Basophils Percent Auto 0.6 % (0.2-2.0); Eosinophils Absolute Auto 0.2 10^3/uL (0.0-0.7); Eosinophils Percent Auto 2.1 % (0.9-7.0); Hematocrit 35.6 % (36.0-48.0); Hemoglobin 11.1 g/dL (12.0-16.0); Immature Granulocytes Abs Auto 0.05 10^3/uL (0.00-0.03); Immature Granulocytes Pct Auto 0.4 % (0.0-0.5); Lymphocytes Absolute Auto 1.4 10^3/uL (1.2-3.8); Lymphocytes Percent Auto 12.3 % (20.5-60.0); Mean Corpuscular HGB Conc 31.2 g/dL (29.9-35.2); Mean Corpuscular Hemoglobin 28.9 pg (26.7-34.0); Mean Corpuscular Volume 92.7 fL (81.0-99.0); Mean Platelet Volume 8.4 fL (9.5-13.5); Neutrophils Absolute Auto 8.5 10^3/uL (1.4-6.5); Neutrophils Percent Auto 75.6 % (43.0-75.0); Platelet Count 464 10^3/uL (150-450); Red Blood Count 3.84 10^6/uL (4.20-5.40); Red Cell Distribution Width 13.3 % (11.0-15.0); White Blood Count 11.2 10^3/uL (4.0-11.0)
[2023-11-28 10:26] LABS: INR 1.12; Prothrombin Time 11.8 sec (9.0-11.6)
[2023-11-28 10:28] LABS: Anion Gap 17.4; BUN Creatinine Ratio 10.6; Carbon Dioxide 24.9 mmol/L (21.0-32.0); Chloride 97 mmol/L (98-107); Estimated GFR (African America >60 (>=60); Estimated GFR (Non-African Ame >60 (>=60); Glucose 116 mg/dL (74-106); Potassium 3.3 mmol/L (3.5-5.1); Sodium 136 mmol/L (136-145)
[2023-11-28] MEDS: CLINDAMYCIN PHOSPHATE/D5W 900 MG/50 ML PIGGYBACK 100 MG IV (10:55)
--- NOTE | 2023-11-28 11:11 | ED.GENADUL1 ---
HPI HPI - General Adult General Chief complaint: Wound/Laceration Stated complaint: ABDOMINAL PAIN Time Seen by Provider: 11/28/23 09:34 Source: patient Mode of arrival: walk-in History of Present Illness HPI narrative: Patient presents with redness, swelling, pain and drainage from an abscess on her upper mid abdomen. Patient was found to have a left liver mass on CT and then had RUQ US for further evaluation. She then underwent liver biopsy at [facility] - the biosy was apparently negative. She developed a firm area of swellig to the upper mid abdomen at the biopsy site and had an abd US on 11/24/23, found to have a hematoma. Over the last 2-3 days, the area of redness and swelling increased and over the last 12 hours it became dramatically larger, more painful, redder and is now draining purulent material. No fever or vomiting. She sees Dr Crystal. Related Data Home Medications ?Medication ?Instructions ?Recorded ?Confirmed atorvastatin 20 mg tablet 20 mg PO .PM 10/25/23 10/25/23 dicyclomine 10 mg capsule 10 mg PO BID 10/25/23 10/25/23 duloxetine 30 mg capsule,delayed 30 mg PO BID 10/25/23 10/25/23 release meloxicam 15 mg tablet 15 mg PO .PM 10/25/23 10/25/23 pantoprazole 40 mg tablet,delayed 40 mg PO .AM 10/25/23 10/25/23 release ropinirole 2 mg tablet 2 mg PO .HS 10/25/23 10/25/23 tizanidine 4 mg tablet 4 mg PO Q12H PRN MUSCLE SPASMS 10/25/23 10/25/23 Previous Rx's ?Medication ?Instructions ?Recorded ciprofloxacin HCl 500 mg tablet 500 mg PO BID 6 days #12 tabs 10/27/23 Allergies Allergy/AdvReac Type Severity Reaction Status Date / Time ivp dye Allergy Uncoded 10/25/23 22:42 latex Allergy Uncoded 10/25/23 22:42 Opioid HPI Opioid Management Most Recent Opioid Data: Last Pain Scale 7 11/28/23 10:06 Last MAR Pain Assessment 11/28/23 10:06 [facility] Medical History (Updated 11/28/23 @ 11:21 by Ike Otto) GERD (gastroesophageal reflux disease) ?K21.9 - Gastro-esophageal reflux disease without esophagitis (ICD-10) RLS (restless legs syndrome) ?G25.81 - Restless legs syndrome (ICD-10) Depression ?F32.A - Depression, unspecified (ICD-10) Lateral meniscus tear ?S83.289A - Other tear of lateral meniscus, current injury, unspecified knee, initial encounter (ICD-10) Tonsillectomy planned High cholesterol ?E78.00 - Pure hypercholesterolemia, unspecified (ICD-10) Arthritis ?M19.90 - Unspecified osteoarthritis, unspecified site (ICD-10) IBS (irritable bowel syndrome) ?K58.9 - Irritable bowel syndrome without diarrhea (ICD-10) Shingles ?B02.9 - Zoster without complications (ICD-10) Surgical History (Updated 10/25/23 @ 21:00 by Octavio Bolton) Hx of appendectomy ?Z90.49 - Acquired absence of other specified parts of digestive tract (ICD-10) Family History (Updated 10/28/23 @ 12:23 by Marian Baugh NP) Sister Family history of cancer Mother Family history of cancer Social History Smoking status: Never smoker Highest level of school completed/degree received: high school graduate Exam Narrative Exam Narrative: Nurses notes and vital signs reviewed and patient is not hypoxic. afebrile General: Well-appearing and in no apparent distress. Skin: Warm, dry, no pallor noted. large cutaneous abscess to the epigastrium measuring 8cm x 3cm with drainage of purulent material. Very tender. Eye: Pupils are equal, round and EOMI. No scleral icterus. Ears, Nose, Mouth, and Throat: Oral mucosa is moist Cardiovascular: Regular Rate and Rhythm without murmur, gallop or rub. Respiratory: No accessory muscle use or respiratory distress. Lungs are clear to auscultation, no wheezing, rales or rhonchi Chest Wall: no tenderness Musculoskeletal: normal ROM GI: Abdomen is soft, non-distended. Normal bowel sounds. Cutaneous abscess in epigastrium as described above with tenderness to palpation. No rebound, guarding, or rigidity noted. Neurological: A&O x4. No cranial nerve dysfunction observed. No truncal ataxia. Moves all extremities. Sensation intact. Psychiatric: Cooperative and interactive. Normal mood and affect. Constitutional Vital Signs, click to edit/add: Last Vital Signs Temp 98.6 F 11/28/23 09:27 Pulse 91 H 11/28/23 09:27 Resp 18 11/28/23 09:27 BP 122/79 11/28/23 09:27 Pulse Ox 95 11/28/23 09:27 O2 Del Method Room Air 11/28/23 09:27 Course Vital Signs Vital signs: Vital Signs Temperature 98.6 F 11/28/23 09:27 Pulse Rate 91 H 11/28/23 09:27 Respiratory Rate 18 11/28/23 09:27 Blood Pressure 122/79 11/28/23 09:27 Pulse Oximetry 95 11/28/23 09:27 Oxygen Delivery Method Room Air 11/28/23 09:27 Temperature 98.6 F 11/28/23 09:27 Pulse Rate 91 H 11/28/23 09:27 Respiratory Rate 18 11/28/23 09:27 Blood Pressure 122/79 11/28/23 09:27 Pulse Oximetry 95 11/28/23 09:27 Oxygen Delivery Method Room Air 11/28/23 09:27 Medical Decision Making MDM Narrative Medical decision making narrative: Peripheral IV was established and blood drawn and sent for testing. Wound culture was also obtained. The patient was ordered to receive IV clindamycin. She was sent for CT scan of the abdomen pelvis but has severe allergy to IV dye and therefore it was done without contrast. The radiologist's report is below. Is concerning for development of cutaneous and subcutaneous abscess with possible involvement of the anterior abdominal wall musculature. Possible hematoma. Case discussed with Dr Blanco, the on-call general surgeon - patient made NPO and will be evaluated to determine possible need for surgical drainage of the abscess. Dr Hanks agreed to admit the patient to his service - medsurg, obs. Lab Data Lab results reviewed: Yes I reviewed the patient's lab results Labs: Lab Results 11/28/23 Range/Units 09:58 WBC 11.2 H (4.0-11.0) 10^3/uL RBC 3.84 L (4.20-5.40) 10^6/uL Hgb 11.1 L (12.0-16.0) g/dL Hct 35.6 L (36.0-48.0) % MCV 92.7 (81.0-99.0) fL MCH 28.9 (26.7-34.0) pg MCHC 31.2 (29.9-35.2) g/dL RDW 13.3 (11.0-15.0) % Plt Count 464 H (150-450) 10^3/uL MPV 8.4 L (9.5-13.5) fL Neut % (Auto) 75.6 H (43.0-75.0) % Lymph % (Auto) 12.3 L (20.5-60.0) % [facility] % (Auto) 9.0 (1.7-12.0) % Eos % (Auto) 2.1 (0.9-7.0) % Baso % (Auto) 0.6 (0.2-2.0) % Neut # (Auto) 8.5 H (1.4-6.5) 10^3/uL Lymph # (Auto) 1.4 (1.2-3.8) 10^3/uL [facility] # (Auto) 1.0 H (0.3-0.8) 10^3/uL Eos # (Auto) 0.2 (0.0-0.7) 10^3/uL Baso # (Auto) 0.1 (0.0-0.1) 10^3/uL Abs Immat Gran (auto) 0.05 H (0.00-0.03) 10^3/uL Imm/Tot Granulo (auto) 0.4 (0.0-0.5) % PT 11.8 H (9.0-11.6) sec INR 1.12 Sodium 136 (136-145) mmol/L Potassium 3.3 L (3.5-5.1) mmol/L Chloride 97 L (98-107) mmol/L Carbon Dioxide 24.9 (21.0-32.0) mmol/L Anion Gap 17.4 BUN 9.0 (7.0-18.0) mg/dL Creatinine 0.85 (0.55-1.02) mg/dL Est GFR ( Amer) >60 (>=60) Est GFR (Non-Af Amer) >60 (>=60) BUN/Creatinine Ratio 10.6 Glucose 116 H (74-106) mg/dL Calcium 9.0 (8.5-10.1) mg/dL Imaging Data CT scan - abdomen: My impression: FINDINGS: LUNG BASES: Curvilinear stranding suspected to represent discoid atelectasis. LIVER: 4.7 cm slightly hypodense heterogeneous area within left hepatic lobe, smaller than previously seen. New density between the left hepatic lobe and anterior abdominal wall approximately 6.7 cm in diameter by 1.8 cm in thickness. New masslike 6.6 x 3.7 cm area within adjacent anterior abdominal wall musculature, and 8.0 x 3.1 cm area within overlying subcutaneous fat. BILIARY: No dilatation or calcification. PANCREAS: No lesion, fluid collection, or abnormal duct dilatation. SPLEEN: No enlargement or focal lesion. ADRENALS: No mass or enlargement. KIDNEYS: No mass, obstruction, or calcification. BOWEL/MESENTERY: Mild wall thickening and inflammatory changes involving the sigmoid colon. Multiple small diverticula along the sigmoid:; No free air or free fluid. AORTA/VASCULAR: No aneurysm or dissection. RETROPERITONEUM: No mass or adenopathy. LYMPH NODES: No adenopathy. URINARY BLADDER: No visible focal wall thickening, lesion, or calculus. PELVIC ORGANS: No visible mass. Pelvic organs appropriate for patient age. ABDOMINAL WALL: No mass or hernia. BONES: Grade 1 anterolisthesis of L5 on S1 secondary to degenerative disc disease and facet arthropathy; no pars defects. Multilevel degenerative disc disease of lower thoracic spine. OTHER: Negative. Radiologist's impression: ITS Impressions Abdomen/Pelvis CT 11/28/23 10:00 IMPRESSION: 1. Interval development of dense fluid collection/inflammatory changes within anterior abdominal wall, subcutaneous fat, and between the liver and anterior abdominal wall post biopsy; abscess versus hematoma. No free air to correspond with an abscess. I suspect findings have increased since prior ultrasound study on 11/24/2023, however, given the differences in technique this cannot be confirmed. Today's study was performed without IV contrast which limits evaluation. 2. Distal sigmoid colon mild acute versus chronic diverticulitis/colitis; grossly stable. Electronically authenticated by: JAZMIN LAZO Date: 11/28/2023 10:49 Discharge Plan Discharge Chief Complaint: Wound/Laceration Clinical Impression: Abdominal abscess, Abdominal hematoma Patient Disposition: Admitted as Observation Time of Disposition Decision: 11:21 Prescriptions / Home Meds: No Action atorvastatin 20 mg tablet 20 mg PO .PM Hold Instructions: Until discussed with Dr Varela meloxicam 15 mg tablet 15 mg PO .PM Hold Instructions: Until discussed with Dr Varela ropinirole 2 mg tablet 2 mg PO .HS pantoprazole 40 mg tablet,delayed release (DR/EC) 40 mg PO .AM duloxetine 30 mg capsule,delayed release(DR/EC) 30 mg PO BID tizanidine 4 mg tablet 4 mg PO Q12H PRN (Reason: MUSCLE SPASMS) dicyclomine 10 mg capsule 10 mg PO BID ciprofloxacin HCl 500 mg tablet 500 mg PO BID 6 Days Qty: 12 0RF Print Language: Turkmen Referrals: ISABEL CRYSTAL [Primary Care Provider] - 1 week
--- OUTSIDE RECORDS SUMMARY | 2023-11-28 12:02 | XMS_ITS | CCD ---
Author Organization [facility] Care Team Providers Care Ultrasonic Seaming Machine Operator Name Role Phone DR SANTIAGO CONNOLLY Attending Unavailable DR SANTIAGO CONNOLLY Admitting Unavailable YAROSPANKAJ Carrasquillo Consulting Unavailable AHDOOTSUSANNAH Consulting Unavailable Juana Acharya MD Primary Care Provider Mimi DENTAL HYGIENIST MOBILE COORDINATOR, Shantell Orozco Unavailable MIMI, SHANTELL Orozco Attending [...] Provider MD Gopi Camara Primary Care Provider [phone] MD Jimmy White Attending Provider Jimmy White Admitting Unavailable Jimmy White Attending Unavailable Gopi Camara Primary Care Unavailable Nichole, Abby Admitting Unavailable Nichole, Abby Attending Unavailable Gopi Camara Primary Care Unavailable Allergies Allergy Classification Reported Allergen(s) Allergy Type Date of Onset Reaction(s) Facility (1 source) Sulfonamides (Antibiotic) Drug allergy (disorder) [facility] Repository (9 sources) Iodine Drug Allergy 9 Hives, Shortness of breath [facility] (11 sources) Latex Propensity to adverse reactions 9 Rash [facility] (9 sources) Sulfonamides (Antibiotic) Drug Intolerance 9 Hives [facility] (11 sources) Iodinated Contrast Media Drug Allergy 1 Unknown [facility] (3 sources) Sulfonamides (Antibiotic); Translations: [Sulfa (Sulfonamide Antibiotics)] Allergy to substance 4 [facility] (3 sources) Gadolinium-Conta ining Contrast Medi; Translations: [Gadolinium-Cont aining Contrast Medi] Allergy to substance 4 [facility] (1 source) Latex Drug allergy (disorder) 4 [facility] Repository (1 source) Iodinated Contrast Media Drug allergy (disorder) 4 [facility] Repository Medications Current Medications Medication Drug Class(es) [...] Start: 08-31-2023 take 1 capsule by mo [facility] morning DULoxetine (Cymbalta) 30 [...] 1 tablet by mouth in the mo [facility] meloxicam (Mobic) 15 MG tablet Take 1 tablet by mouth in the morning. 0 Active Multiple Vitamins-Minerals (Multi For Her 50+) tablet (9 sources) Multiple Vitamins-Minerals (Multi For Her 50+) tablet as directed Orally 0 Active Wi-Mbm-Adgzz-Calcium Carb-K1 (One Daily Women 50 Plus(Vit K)) 400 mcg-500 mg calcium-20 mcg tablet (1 source) Start: take 1 tablet by mouth once Ic-Cym-Mqjvk-Calcium Carb-K1 (One Daily Women 50 Plus(Vit K)) [...] 01-19-2023 Chronic Other aftercare (1 source) Other retirement (current) drug therapy; Translations: [OTH [facility] CURRENT DRUG THERAPY] Onset: 1 Episodic Other [...] aPTT Coag (PPP) [Time] 28.2 s 25.1-36.5 [facility] Comment on above: A hematocrit value g reater than 55% may lead to inaccurate results in coagulation testing. Patients having hematocrit values >55% require a special collection tube for coagulation studies. Please contact the laboratory at [phone] for redraw instructions. Coagulation Profileon 2023 aPTT Coag (Bld) [Time] 28.2 s Normal 25.1-36.5 [facility] Comment on above: Order Comment: STAT FOR US BX Result Comment: A he matocrit value greater than 55% may lead to inaccurate results in coagulation testing. Patients having hematocrit values >55% require a special collection tube for coagulation studies. Please contact the laboratory at [phone] for redraw instructions. PERFORMED BY: [place] [id number] PATHOLOGIST HOME SUPPORT WORKER DOROTEO BANKS M.D. Performed By: #### P LT, PP #### [facility] [address] [place], [place] [address] [facility] INR Coag (PPP) [Relative time] 1.6 {INR} Normal [facility] Comment on above: Order Comment: STAT [...] Performed By: #### P LT, PP #### [facility] [address] [place] [address] [place] PT Coag (PPP) [Time] 17.9 s High 9.0-12.9 [facility] Comment on above: Order Comment: STAT FOR US BX Result Comment: A he matocrit value greater than 55% may lead to inaccurate results in coagulation testing. Patients having hematocrit values >55% require a special collection tube for coagulation studies. Please contact the laboratory at [phone] for redraw instructions. Performed By: #### P LT, PP #### [facility] [address] [place] [address] [place] INR in Platelet poor plasma by Coagulation assayOrdered By: Abby Varela on 11-11-2023 INR Coag (PPP) [Relative time] 1.6 {INR} [facility] Comment on above: INR Therapeutic Rang e [...] Specimen: Received: 11/11/23 Status: KAYCE Felton Num: [id number] Spec Type: Surgical Subm Dr: Yamil Cano DO Tissues: A Liver - Needle Biopsy (LT LIVER LOBE) Procedures: PAS - LGRN, MART 1/MARCEL A, HE/2, Gross/Micro L5, GMS II Dark, AE1-AE3, CD68, CK20, CK 7, SOX-10, DIFF QWIK/2 Age/ Patient Sex Location Account Attending Physician Twila Ceballos 73/F [id number] Abby Varela MD SPEC NUM: [id number] RECD: 11/11/23 STATUS: KAYCE FELTON NUM: [id number] TERESA: 11/11/[address]: Yamil Cano DO ENTERED: 11/11/[address] [facility] [address]: SPEC TYPE: Surgical DEPT: S [...] submitted in one cassette labeled A1. Specimen: [id number] Received: 11/11/23 Status: KAYCE Felton Num: [id number] Spec Type: Surgical Subm Dr: Yamil Cano DO Tissues: A Liver - Needle Biopsy (LT LIVER LOBE) Procedures: PAS - LGRN, MART 1/MARCEL A, HE/2, Gross/Micro L5, GMS II Dark, AE1-AE3, CD68, CK20, CK 7, SOX-10, DIFF QWIK/2 Patient: Twila Ceballos [id number] (Continued) Specimen: [id number] Received: 11/11/23 (Continued) Signed (signature on file) Dayday Ford MD 11/15/231757 Specimen: [id number] Received: 11/11/23 Status: KAYCE Felton Num: [id number] Spec Type: Surgical Subm Dr: Yamil Cano DO Tissues: A Liver - Needle Biopsy (LT LIVER LOBE) Procedures: PAS - LGRN, MART 1/MARCEL A, HE/2, Gross/Micro L5, GMS II Dark, AE1-AE3, CD68, CK20, CK 7, SOX-10, DIFF QWIK/2 Patient: Twila Ceballos [id number] (Continued) Specimen: [id number] Received: 11/11/23 (Continued) Intraoperative Diagnosis A. Liver biopsy (left liver lobe per requisition): - Neutrophilic inflammation. No malignant cells seen. Portion of specimen sent for cultures. Reported by Dr. Grullon 11/11/2023 at 11:55 AM CPT Codes 09427, 75019 Specimen: [id number] Received: 11/11/23-1258 Status: KAYCE Felton Num: [id number] Spec Type: Surgical Subm Dr: Yamil Cano DO Tissues: A Liver - Needle Biopsy (LT LIVER LOBE) Procedures: PAS - LGRN, MART 1/MARCEL A, HE/2, Gross/Micro L5, GMS II Dark, AE1-AE3, CD68, CK20, CK 7, SOX-10, DIFF QWIK/2 Patient: Twila Ceballos [id number] (Continued) Signed (signature on file) Dayday Ford MD 11/15/23 501 Normal [facility] No Panel InformationOrdered By: Gopi Camara on 11-11-2023 Mycobacterium Identification N/A [facility] Mycology Susceptibility N/A [facility] Platelet Counton 11-11-2023 Platelets (Bld) [#/Vol] 675 10*3/uL High 150-450 [facility] Comment on above: Order Comment: STAT FOR US BX Result Comment: PERF ORMED BY: [place] [address] PATHOLOGIST HOME SUPPORT WORKER DOROTEO BANKS M.D. Performed By: #### P LT, PP #### [place] [address] [place] Platelets Auto (Bld) [#/Vol] Ordered By: Abby Varela on 11-11-2023 Platelets (Bld) [#/Vol] 675 10*3/uL 150-450 [facility] Prothrombin time (PT)Ordered By: Abby Varela on 11-11-2023 PT Coag (PPP) [Time] 17.9 s 9.0-12.9 [facility] Comment on above: A hematocrit value g reater than 55% may lead to inaccurate results in coagulation testing. Patients having hematocrit values >55% require a special collection tube for coagulation studies. Please contact the laboratory at [phone] for redraw instructions. US needle biopsyon 4 US needle biopsy [facility] [place] [address] [place], [place] [address] Ultrasound Report Signed Patient: Twila Ceballos MR#: [id number] : 1950 Acct:[id number] Age/Sex: 73 / F ADM Date: 11/11/23 Loc: Room: Type: [facility] Attending Dr: Abby Varela MD Ordering Provider: [...] Yamil Cano M.D.11/11/2023 3:15 PM Dictation Location: [place] [address] Tech: Hansa Azar Transcribed By: GUERDA 11/11/23 1515 Dictated By: Yamil Cano DO 11/11/23 151 Signed By: 11/11/23 151 [facility] No Panel Informationon 10-04 Pavan Chapman NP 10/04/2023 1:23 PM L Inj/Asp: R knee on 10/04/2023 1:22 PM Indications: pain Medications: 40 mg methylPREDNISolone acetate 40 MG/ML Procedure, treatment alternatives, risks and benefits explained, specific risks discussed. Consent was given by the patient. [employer] CT HEAD WO IV CONTRASTon CT HEAD [...] by: SUSANNAH HOUSE Date: 2021-06-18 20:29 Normal [facility] Vital Signs Date Time Vital Sign Value Performing Clinician Faci lity 11-14-2023 12:52-0400 Diastolic blood pressure 73 mm[Hg] MD Gopi Camara Work Phone: [facility] 11-14-2023 12:52-0400 Heart rate 65 /min MD Gopi Camara Work Phone: [facility] 11-14-2023 12:52-0400 Respiratory rate 16 /min MD Gopi Camara Work Phone: [facility] 11-14-2023 12:52-0400 SaO2% (BldA) [Mass fraction] 94 % MD Gopi Camara Work Phone: [facility] 11-14-2023 12:52-0400 Systolic blood pressure 112 mm[Hg] MD Gopi Camara Work Phone: [facility] 11-14-2023 10:55-0400 Body height 165.1 cm MD Gopi Camara Work Phone: [facility] 11-14-2023 10:55-0400 Body temperature 98 [degF] MD Gopi Camara Work Phone: [facility] 11-14-2023 10:55-0400 Body weight 67.13 kg MD Gopi Camara Work Phone: [facility] 11-11-2023 12:55-0400 Diastolic blood pressure 60 mm[Hg] MD Gopi Camara Work Phone: [facility] 11-11-2023 12:55-0400 Heart rate 80 /min MD Gopi Camara Work Phone: [facility] 11-11-2023 12:55-0400 Respiratory rate 18 /min MD Gopi Camara Work Phone: [facility] 11-11-2023 12:55-0400 SaO2% (BldA) [Mass fraction] 94 % MD Gopi Camara Work Phone: [facility] 11-11-2023 12:55-0400 Systolic blood pressure 114 mm[Hg] MD Gopi Camara Work Phone: [facility] 11-11-2023 10:34-0400 Body height 165.1 cm MD Gopi Camara Work Phone: [facility] 11-11-2023 10:34-0400 Body weight 65.77 kg MD Gopi Camara Work Phone: [facility] Encounters Encounter Date Encounter Type Care Provider Facility Start: 11-14-2023 Non-patient / Non-visit MD Emilio Camara Work Phone: [facility] Work Phone: Start: 11-14-2023 End: 11-14-2023 ambulatory Jimmy White Facility:[facility] Start: 11-14-2023 End: 11-14-2023 Admission to same day surgery center MD Gopi Camara Work Phone: [facility] Work Phone: Start: 11-14-2023 End: 11-14-2023 ambulatory MD Gopi Camara Work Phone: [facility] Work Phone: Start: 11-11-2023 End: 11-11-2023 ambulatory Abby Nichole Facility:[facility] Start: 11-11-2023 End: 11-11-2023 Admission to same day surgery center MD Gopi Camara Work Phone: [facility] [place] Work Phone: Start: 11-11-2023 End: 11-11-2023 ambulatory MD Gopi Camara Work Phone: [facility] Work Phone: Start: 10-24-2023 End: 10-24-2023 [...] Office outpatient visit 25 minutes Pavan Chapman DENTAL HYGIENIST MOBILE COORDINATOR Work Phone: [facility] Comment on above: Primary osteoarthrit is of right knee (Primary Dx); Chronic pain of right knee Start: 10-04-2023 End: 10-04-2023 Treatment Veronica Collins BRAKE ADJUSTER [facility] Comment on above: Balance [...] knee Start: 09-20-2023 End: 09-21-2023 ambulatory ROXANNA BROWN Not Available Start: 09-14-2023 End: 09-14-2023 ambulatory [...] aspir&/inj major jt/bursa w/o Pavan T Sita DENTAL HYGIENIST MOBILE COORDINATOR Work Phone: Start: 05-30-2023 Mammography Shayla Goldman PT Work Phone: Plan of Treatment Date Care Activity Detail Author Start: 06-21-2024 Medicare Annual Wellness (AWV) Medicare Annual Wellness (AWV) [facility] Start: 05-30-2024 Screening for malignant neoplasm of breast Mammogram [facility] Start: 05-12-2024 Screening for malignant neoplasm of colon [facility] Start: 11-14-2023 [facility] Start: 11-11-2023 Microscopic observation [Identifier] in Unspecified specimen by Gram stain Gram Stain [facility] Start: 11-11-2023 End: 11-11-2023 [facility] Start: 11-11-2023 Ultrasonic guidance for needle biopsy [facility] Start: 10-20-2023 End: 10-20-2023 ambulatory 10/20/2023 11:00 AM EST Treatment [facility] [address] [place] [address] Shayla Goldman, PT [address] [facility] [address] [place] [address] [facility] Start: 10-18-2023 End: 10-18-2023 ambulatory 10/18/2023 10:30 AM EST Treatment [facility] [address] [place] [address] Shayla oGldman, PT [address] [place] [address] [facility] Start: 10-17-2023 End: 10-17-2023 ambulatory 10/17/2023 10:00 AM EST Treatment [facility] [address] [place] [address] Shayla Goldman, PT [address] [place] [address] [facility] Start: 10-13-2023 End: 10-13-2023 ambulatory 10/13/2023 11:00 AM EST Treatment [facility] [address] [place] [address] Shayla Goldman, PT [address] [place] [address] [facility] Start: 10-11-2023 End: 10-11-2023 Patient encounter procedure 10/11/2023 3:15 PM EST Office Visit [facility] [address] [place] [id number] Silvia Moran, DPM [address] [place] [address] [facility] Start: 10-11-2023 End: 10-11-2023 ambulatory 10/11/2023 10:30 AM EST Treatment [facility] [address] [place] [address] Shayla Goldman, PT [address] [place] [address] [facility] Start: 10-10-2023 End: 10-10-2023 Social Work 10/10/2023 1:00 PM EST Social Work [facility] [address] [place] [facility] [place] [place] [address] Korina Okeefe, MANAGER COMMUNICATION-S [address] [facility] [place] [address] [facility] Start: 10-06-2023 End: 10-06-2023 ambulatory [facility] Start: 10-04-2023 End: 10-04-2023 Patient encounter procedure 10/04/2023 1:00 PM EST Office Visit [facility] [address] [place] [address] Pavan Chapman, DENTAL HYGIENIST MOBILE COORDINATOR [address] [facility] [place] [address] [facility] Start: 10-04-2023 End: 10-04-2023 ambulatory [facility] Start: 09-29-2023 End: 09-29-2023 ambulatory 09/29/2023 4:30 PM EST Treatment [facility] [address] [facility] [address] [place] [address] Shayla Goldman, PT [address] [facility] [address] [place] [address] [facility] Start: 09-27-2023 End: 09-27-2023 ambulatory 09/27/2023 8:30 AM EST Treatment [facility] [address] [facility] [address] [place] [id number] Shayla Goldman, PT [address] [facility] [address] [place] [address] [facility] Start: 1950 Screening for malignant neoplasm of colon [facility] Fungus identified in Unspecified specimen by Culture [facility] Microscopic observat ion [Identifier] in Unspecified specimen by Smear [facility] Mycobacterium sp identified in Unspecified specimen by Organism specific culture [facility] Patient Education [facility] Live r Biopsy Discharge Instructions [facility] Work Phone: Immunizations Immunization Date Immunization Notes Care Provider [facility] 06-18-2023 tetanus toxoid, redu jay diphtheria toxoid, and acellular pertussis vaccine, adsorbed Shayla Goldman PT Work Phone: [facility] Work Phone: 04-28-2023 Influenza, Seasonal, Quadrivalent, Adjuvanted Shayla Goldman PT Work Phone: [facility] 04-28-2023 Pneumococcal Conjuga te PCV 20 Shayla Goldman PT Work Phone: [facility] 04-28-2023 RSV, recombinant, protein subunit RSVpreF, adjuvant reconstitu, 120mcg/0.5mL, PF (Arexvy) Shayla Goldman PT Work Phone: [facility] 05-14-2022 Influenza, Seasonal, Quadrivalent, Adjuvanted Shayla Goldman PT Work Phone: [facility] 05-06-2022 Moderna Bivalent Tello ster Vaccination Shayla Goldman PT Work Phone: [facility] 05-06-2022 Moderna SARS-CoV-2 50mcg/0.5mL Booster Shayla Goldman PT Work Phone: [facility] 04-16-2021 Influenza, High-dose Seasonal, Quadrivalent, Preservative Free Shayla Goldman PT Work Phone: [facility] 04-29-2020 influenza, injectabl e, quadrivalent, preservative free Shayla Goldman PT Work Phone: [facility] 05-04-2019 Seasonal trivalent influenza vaccine, adjuvanted, preservative free Shayla Goldman PT Work Phone: [facility] 05-10-2018 zoster vaccine recombinant Shayla Goldman PT Work Phone: [facility] 04-14-2018 influenza, seasonal, injectable, preservative free Shayla Goldman PT Work Phone: [facility] 04-13-2018 influenza virus vacc ine, split virus (incl. purified surface antigen) Shayla Goldman PT Work Phone: [facility] 04-11-2018 influenza, injectabl e, quadrivalent, preservative free Shayla Goldman PT Work Phone: [facility] 12-21-2017 zoster vaccine recombinant Shayla Goldman PT Work Phone: [facility] 05-23-2017 influenza, injectabl e, quadrivalent, preservative free Shayla Goldman PT Work Phone: [facility] 05-23-2017 pneumococcal polysaccharide vaccine, 23 valent Shayla Goldman PT Work Phone: [facility] 06-02-2016 influenza, injectabl e, quadrivalent, preservative free Shayla Goldman PT Work Phone: [facility] 06-02-2016 pneumococcal conjuga te vaccine, 13 valent Shayla Goldman PT Work Phone: [facility] 05-28-2015 influenza, injectabl e, quadrivalent, preservative free Shayla Goldman PT Work Phone: [facility] 05-28-2015 pneumococcal conjuga te vaccine, 13 valent Shayla Goldman PT Work Phone: [facility] 05-22-2015 seasonal influenza, intradermal, preservative free Shayla Goldman PT Work Phone: [facility] 05-22-2014 pneumococcal polysaccharide vaccine, 23 valent Shayla Goldman PT Work Phone: [facility] 12-25-2012 tetanus toxoid, redu jay diphtheria toxoid, and acellular pertussis vaccine, adsorbed Shayla Goldman PT Work Phone: [facility] 10-13-2009 novel influenza-H1N1 -09, preservative-free, injectable Shayla Goldman PT Work Phone: [facility] Payers Date Payer Category Payer Self-pay 2022 Unknown AARP AARP [id number] 2022-Present [address] [place] [address] [id number] 2022 Unknown [id number] 2017 Medicare MEDICARE MEDICAR E PART B [id number] 2017-[place] [place] [address] Medicare [id number] 2017 Medicare [id number] 1959 Medicare [id number] 1950 Unknown [id number] 1950 Unknown [id number] 2.16.840.1.383904.3.579.2.1259 1950 Unknown [id number] 2.16.840.1.980842.3.579.2.1259 1952 Unknown [id number] 2.16.840.1.365292.3.579.2.1259 1952 Unknown [id number] 2.16.840.1.133461.3.579.2.1259 1952 Unknown [id number] 2.16.840.1.986098.3.579.2.1259 1952 Unknown [id number] 2.16.840.1.934826.3.579.2.1259 1952 Unknown [id number] 2.16.840.1.772237.3.579.2.1259 1952 Unknown [id number] 2.16.840.1.549076.3.579.2.1259 1952 Unknown [id number] 2.16.840.1.451896.3.579.2.1259 1952 Unknown [id number] 2.16.840.1.030489.3.579.2.1259 1952 Unknown [id number] 2.16.840.1.743017.3.579.2.1259 1950 Unknown [id number] 2.16.840.1.425401.3.579.2.1259 Unknown [id number] 2.16.840.1.243015.3.579.2.531 Unknown [id number] 2.16.840.1.184165.3.579.2.531 Social History Date Type Detail Facility Start: 01-19-2023 Tobacco smoking stat [facility] Never smoked tobacco [facility] Start: 01-19-2023 [...] to any clubs or organizations such as quaker groups, [employer], fraLinkurious or athletic groups, or school groups? Yes [...] Start: 1950 Sex Assigned At Female F [facility] Goals Date Patient Goal Desired Activity /State Procedure note 11-14-2023 Note Date & Type Note Facility 11-14-2023 Procedure note [facility] History of Present illness Narrative 10-04-2023 [...] AGO. MDP 02/2022, 02/2023 PHYSICAL THERAPY @ [facility] DID NOT TAKE MDP 02/2023 CURRENTLY DOING PT AT [facility], SOME RELIEF. SORENESS MEDIAL AND LATERAL. [...] develop for requiring urgent evaluation. Pavan Chapman GRINDER OPERATOR-REGULATORY ADMINISTRATOR documented in this encounter [facility] History [...] Physician Signature: Date: documented in this encounter [facility] Evaluation note Note Date & Type Note Facility Evaluation note Diagnosis Balance disorder- Primary Arthritis of right knee documented in this encounter [facility] Evaluation note Note Date & Type Note Facility Evaluation note Diagnosis Primary osteoarthritis of right knee- Primary Chronic pain of right knee documented in this encounter [facility] Evaluation note Note Date & Type Note Facility Evaluation note Diagnosis Balance disorder- Primary Arthritis of right knee documented in this encounter [facility] Evaluation note Note Date & Type Note Facility Evaluation note No assessment information availa [facility] Work Phone: History and physical note Note Date & Type Note Facility History and physical note Note Date/Time November 14, 2023 12:24pm [facility] [address] [place] [address] Gastroenterology H&P Signed Patient: Twila Ceballos MR#: [id number] : 1950 Acct:[id number] Age/Sex: 73 / F Adm Date: 4 Loc: Room: Type: [facility] Attending Dr: Jimmy White MD Copies to: [...] signed by Jimmy White MD> 11/14/23 1224 [facility] Work Phone: Summary Purpose Family History [...] Procedures L Inj/Asp: R knee Pavan Chapman, DENTAL HYGIENIST MOBILE COORDINATOR [address] [place] [address] Referral ID Status Reason Start Date Expiration Date V isits Requested Visits Authorized [id number] Pending Review 10/04/2023 04/01/2024 1 1 Chief Complaint and Reason for Visit Chief Complaint liver mass Chief Complaint liver mass elevated white blood cells, anemia, liver mass. elevated white blood cells, anemia, liver mass. Additional Source Comments INFORMATION SOURCE (unrecogn ized section and content) DATE CREATED AUTHOR 06/24/2021 [facility] DATE CREATED AUTHOR AUTHOR'S ORGANIZ ATION 10/25/2023 [facility] d[facility] Specialists EPIC DATE CREATED AUTHOR AUTHOR'S ORGANIZ ATION 11/24/2023 [facility] Care Teams (unrecognized sec tion and content) Ultrasonic Seaming Machine Operator Relationship Specialty Start Date End Date Juana Acharya MD [address] [place] [facility] [place] [address] PCP - General Family Medicine 08/31/23 Shantell Le NP [address] [facility] [place] [address] Nurse Practitioner Family Medicine 08/31/23 Ultrasonic Seaming Machine Operator Relationship Specialty Start Date End Date Juana Acharya MD [address] [facility] [place] [address] PCP - General Family Medicine 08/31/23 Shantell Le DENTAL HYGIENIST MOBILE COORDINATOR [address] [facility] [place] [address] Nurse Practitioner Family Medicine 08/31/23 Ultrasonic Seaming Machine Operator Relationship Specialty Start Date End Date Juana Acharya MD [address] [facility] [place] [address] PCP - General Family Medicine 08/31/23 Shantell Le NP [address] [place] [address] Nurse Practitioner Family Medicine 08/31/23 Ultrasonic Seaming Machine Operator Relationship Specialty Start Date End Date Juana Acharya MD [address] [place] [address] PCP - General Family Medicine 08/31/23 Shantell Le NP [address] [place] [address] Nurse Practitioner Family Medicine 08/31/23 Ultrasonic Seaming Machine Operator Relationship Specialty Start Date End Date Juana Acharya MD [address] [place] [address] PCP - General Family Medicine 08/31/23 Shantell Le NP [address] [place] [address] Nurse Practitioner Family Medicine 08/31/23 Ultrasonic Seaming Machine Operator Relationship Specialty Start Date End Date Juana Acharya MD [address] [place] [address] PCP - General Family Medicine 08/31/23 Shantell Le NP [address] [place] [address] Nurse Practitioner Family Medicine 08/31/23 Ultrasonic Seaming Machine Operator Relationship Specialty Start Date End Date Juana Acharya MD [address] [place] [address] PCP - General Family Medicine 08/31/23 Shantell Le NP [address] [place] [address] Nurse Practitioner Family Medicine 08/31/23 Team Status: Active Member Role Status Dates Gopi Camara MD Primary Care Provider Active Team Status: Inactive Member Role Status Dates Abby Varela MD Attending Provider Active St art: [...] Balance disorder Arthritis of right knee Procedures [place] OFFICE/OUTPATIENT NEW HIGH MDM 60 MINUTES Shantell Le, DENTAL HYGIENIST MOBILE COORDINATOR [address] [place] [address] Shayla Goldman, PT [address] [facility] [address] [place] [address] Referral ID Status Reason Start Date Expiration Date Visits Requested Visits Authorized [id number] Authorized Specialty Services Required 08/31/2023 02/27/2024 30 [...] BE BASED ON THE PRIMARY CLINICAL RECORDS. [facility]. provides no warranty or guarantee of the accuracy or completeness of information in this document.
--- NOTE | 2023-11-28 12:48 | P.HP_ITS ---
HPI H&P: HPI History of Present Illness Chief complaint: ABDOMINAL PAIN Narrative: 73 y/o female to ER with abdominal wall redness and pain. Last month found liver lesion and had US guided biopsy 11/10 which was negative for malignancy. Developed mild redness and swelling around biopsy site and saw oncology who ordered US. US showed possible hematoma and used ice. Over next several days developed increased swelling and redness to upper abdomen wall. Skin firm and very tender to touch. Skin red and warm to touch. Afebrile and no nausea. Increased pain and started to have drainage. To ER and WBC 11.2. Afebrile. CT showed likely abscess. Admitted for treatment. Opioid HPI Opioid Management Most Recent Opioid Data: Last Pain Scale 7 11/28/23 10:06 Last OCT Pain Assessment 11/28/23 10:06 Review of Systems ROS Constitutional Denies: fever, chills or fatigue Cardiovascular Denies: chest pain, palpitations or edema Respiratory Denies: shortness of breath, cough or wheezing Gastrointestinal Denies: abdominal pain, nausea, vomiting or diarrhea Integumentary/Breast Reports: redness, skin pain and sores PFSH PFSH Medical History (Updated 11/28/23 @ 12:48 by José Miguel Hanks MD) Transaminitis ?R74.01 - Elevation of levels of liver transaminase levels (ICD-10) Leukocytosis ?D72.829 - Elevated white blood cell count, unspecified (ICD-10) Lesion of liver greater than 1 cm in diameter ?K76.9 - Liver disease, unspecified (ICD-10) GERD (gastroesophageal reflux disease) ?K21.9 - Gastro-esophageal reflux disease without esophagitis (ICD-10) RLS (restless legs syndrome) ?G25.81 - Restless legs syndrome (ICD-10) Depression ?F32.A - Depression, unspecified (ICD-10) Lateral meniscus tear ?S83.289A - Other tear of lateral meniscus, current injury, unspecified knee, initial encounter (ICD-10) Tonsillectomy planned Arthritis ?M19.90 - Unspecified osteoarthritis, unspecified site (ICD-10) Shingles ?B02.9 - Zoster without complications (ICD-10) Surgical History (Updated 10/25/23 @ 21:00 by Octavio Bolton) Hx of appendectomy ?Z90.49 - Acquired absence of other specified parts of digestive tract (ICD- 10) Family History (Updated 10/28/23 @ 12:23 by Marian Baugh NP) Sister Family history of cancer Mother Family history of cancer Social History Smoking status: Never smoker Highest level of school completed/degree received: high school graduate Meds Home Medications and Allergies Home Medications ?Medication ?Instructions ?Recorded ?Confirmed ?Type atorvastatin 20 mg tablet 20 mg PO .PM 10/25/23 11/28/23 History dicyclomine 10 mg capsule 10 mg PO BID 10/25/23 11/28/23 History duloxetine 30 mg capsule,delayed 30 mg PO BID 10/25/23 11/28/23 History release meloxicam 15 mg tablet 15 mg PO .PM 10/25/23 11/28/23 History pantoprazole 40 mg tablet,delayed 40 mg PO .AM 10/25/23 11/28/23 History release ropinirole 2 mg tablet 2 mg PO .HS 10/25/23 11/28/23 History tizanidine 4 mg tablet 4 mg PO Q12H PRN MUSCLE SPASMS 10/25/23 11/28/23 History Allergies Allergy/AdvReac Type Severity Reaction Status Date / Time ivp dye Allergy Uncoded 10/25/23 22:42 latex Allergy Uncoded 10/25/23 22:42 Exam Constitutional Vital Signs, click to edit/add: Last Vital Signs Temp 98.2 F 11/28/23 12:10 Pulse 85 11/28/23 12:10 Resp 15 11/28/23 12:10 BP 116/62 11/28/23 12:10 Pulse Ox 91 L 11/28/23 12:10 O2 Del Method Nasal Cannula 11/28/23 12:10 O2 Flow Rate 3 11/28/23 12:10 Documenting provider has reviewed patient's vital signs: yes Common normals: no apparent distress, oriented x3 and alert Eye Common normals: PERRL and EOMs intact bilaterally Respiratory Common normals: normal respiratory effort and clear to auscultation bilaterally Cardio Common normals: regular rate, regular rhythm, no gallops, no murmurs and no rub GI Common normals: soft to palpation Inspection: erythema (Moderate erythema and purulent drainage in upper abdominal wall) Auscultation: normoactive bowel sounds Palpation: no guarding Extremity Common normals: no pedal edema Results Labs Labs: Short CBC 11/28/23 Range/Units 09:58 WBC 11.2 H (4.0-11.0) 10^3/uL Hgb 11.1 L (12.0-16.0) g/dL Hct 35.6 L (36.0-48.0) % Plt Count 464 H (150-450) 10^3/uL BMP 11/28/23 09:58 Sodium 136 Potassium 3.3 L Chloride 97 L Carbon Dioxide 24.9 BUN 9.0 Creatinine 0.85 Glucose 116 H Calcium 9.0 Assessment and Plan Assessment and Plan (1) Abdominal abscess: (2) Abdominal hematoma: (3) High cholesterol: (4) IBS (irritable bowel syndrome): Plan Presented with redness and swelling and found abscess which started to drain. Start clindamycin and consult general surgery. Await wound culture results. Us e heat to help drain. Resume home medication. Monitor labs and vitals. Anticipate 2-3 days in the hospital.
[2023-11-28] MEDS: DEXTROSE 5 %-0.45 % SOD CHLORD 1,000 ML 100 ML IV ×2 (14:05→23:47)
[2023-11-28] MEDS: MORPHINE SULFATE 2 MG/ML SYRINGE IV (15:38)
--- NOTE | 2023-11-28 17:11 | PM.GSCN ---
History of Present Illness Consult details Consult date: 11/28/23 Reason for consult: abdominal pain Requesting physician: Abby Tripathi Narrative: Divya Arriaga is a 73-year-old female who presented to the Emergency Department with complaints of upper abdominal pain which begana few days to weeks ago. Patient had a liver biopsy done at [facility] on 11/11/2023 for abnormal masses which have been reported to be negative for malignancy. Her medical oncologist from [facility] ordered the testing. She wasn't feeling well for. About a week beginning of October and was hospitalized and then underwent scans with abnormalities of the liver for which the liver biopsy was performed. She also underwent upper and lower endoscopy at [facility] which were negative as reported by the patient. Patient has a positive family history of breast and stomach cancer in her daughter and esophageal cancer in a sister. She still hasn't been feeling well but recently she has a lot of abdominal pain in the epigastric area with redness and drainage of purulent drainage. She denies any history of diabetes. CT scan was performed [place] [address] CT Scan Report Signed Patient: DIVYA ARRIAGA MR#: [id number] : 1950 Acct:[id number] Age/Sex: 73 / F ADM Date: 11/28/23 Loc: ER Attending Dr: Ordering Physician: Abby Tripathi D.O. Date of Service: 11/28/23 Procedure(s): CT abdomen pelvis wo con Accession Number(s): [id number] cc: ISABEL CRYSTAL ~ [facility] [place] [id number] Patient Name: DIVYA ARRIAGA MRN: [id number] date: 1950 Sex: F Assigned Patient Location: ER Current Patient Location: ER Accession/Order Number: [id number] Exam Date: 11/28/2023 10:21 Report Date: 11/28/2023 10:49 At the request of: ABBY TRIPATHI Procedure: CT abdomen pelvis wo con EXAMINATION: CT abdomen pelvis wo con HISTORY: abdominal abscess ; pain and erythema of abdominal wall in area of recent liver biopsy COMPARISON: Ultrasound abdomen 11/24/2023, CT abdomen pelvis 10/26/2023 TECHNIQUE: Axial, Coronal, and Sagittal images were obtained without and/or with IV contrast as indicated by examination type. Dose reduction techniques were achieved by using automated exposure control and/or adjustment of mA and/or kV according to patient size and/or use of iterative reconstruction technique. FINDINGS: LUNG BASES: Curvilinear stranding suspected to represent discoid atelectasis. LIVER: 4.7 cm slightly hypodense heterogeneous area within left hepatic lobe, smaller than previously seen. New density between the left hepatic lobe and anterior abdominal wall approximately 6.7 cm in diameter by 1.8 cm in thickness. New masslike 6.6 x 3.7 cm area within adjacent anterior abdominal wall musculature, and 8.0 x 3.1 cm area within overlying subcutaneous fat. BILIARY: No dilatation or calcification. PANCREAS: No lesion, fluid collection, or abnormal duct dilatation. SPLEEN: No enlargement or focal lesion. ADRENALS: No mass or enlargement. KIDNEYS: No mass, obstruction, or calcification. BOWEL/MESENTERY: Mild wall thickening and inflammatory changes involving the sigmoid colon. Multiple small diverticula along the sigmoid:; No free air or free fluid. AORTA/VASCULAR: No aneurysm or dissection. RETROPERITONEUM: No mass or adenopathy. LYMPH NODES: No adenopathy. URINARY BLADDER: No visible focal wall thickening, lesion, or calculus. PELVIC ORGANS: No visible mass. Pelvic organs appropriate for patient age. ABDOMINAL WALL: No mass or hernia. BONES: Grade 1 anterolisthesis of L5 on S1 secondary to degenerative disc disease and facet arthropathy; no pars defects. Multilevel degenerative disc disease of lower thoracic spine. OTHER: Negative. CT/CT abdomen pelvis wo con IMPRESSION: 1. Interval development of dense fluid collection/inflammatory changes within anterior abdominal wall, subcutaneous fat, and between the liver and anterior abdominal wall post biopsy; abscess versus hematoma. No free air to correspond with an abscess. I suspect findings have increased since prior ultrasound study on 11/24/2023, however, given the differences in technique this cannot be confirmed. Today's study was performed without IV contrast which limits evaluation. 2. Distal sigmoid colon mild acute versus chronic diverticulitis/colitis; grossly stable. Electronically authenticated by: JAZMIN IGNACIO Date: 11/28/2023 10:49 Dictated By: Jazmin Ignacio M.D. Signed By: 11/28/23 1052 DD/ 1049 TD/TT: Automation Tester: Review of Systems ROS Status of ROS 10 or more systems reviewed and unremarkable except as noted in history and below [facility] Medical History (Updated 11/28/23 @ 12:54 by José Miguel Hanks MD) Transaminitis ?R74.01 - Elevation of levels of liver transaminase levels (ICD-10) Leukocytosis ?D72.829 - Elevated white blood cell count, unspecified (ICD-10) Lesion of liver greater than 1 cm in diameter ?K76.9 - Liver disease, unspecified (ICD-10) GERD (gastroesophageal reflux disease) ?K21.9 - Gastro-esophageal reflux disease without esophagitis (ICD-10) RLS (restless legs syndrome) ?G25.81 - Restless legs syndrome (ICD-10) Depression ?F32.A - Depression, unspecified (ICD-10) Lateral meniscus tear ?S83.289A - Other tear of lateral meniscus, current injury, unspecified knee, initial encounter (ICD-10) Tonsillectomy planned Arthritis ?M19.90 - Unspecified osteoarthritis, unspecified site (ICD-10) Shingles ?B02.9 - Zoster without complications (ICD-10) Surgical History History of removal of ovarian cyst ?Z98.890 - Other specified postprocedural states (ICD-10) ?Z87.42 - Personal history of other diseases of the female genital tract (ICD-10) History of tonsillectomy ?Z90.89 - Acquired absence of other organs (ICD-10) Hx of appendectomy ?Z90.49 - Acquired absence of other specified parts of digestive tract (ICD-10) Family History Sister Family history of cancer Mother Family history of cancer Aunt Family history of cancer Social History Within the past year, how often did you have a drink containing alcohol: monthly or less Smoking status: Never smoker Non-prescribed substance use: denies use Highest level of school completed/degree received: some college, no degree Meds Home Medications and Allergies Home Medications ?Medication ?Instructions ?Recorded ?Confirmed ?Type atorvastatin 20 mg tablet 20 mg PO .PM 10/25/23 11/28/23 History dicyclomine 10 mg capsule 10 mg PO BID 10/25/23 11/28/23 History duloxetine 30 mg capsule,delayed 30 mg PO BID 10/25/23 11/28/23 History release meloxicam 15 mg tablet 15 mg PO .PM 10/25/23 11/28/23 History pantoprazole 40 mg tablet,delayed 40 mg PO Q12H 10/25/23 11/28/23 History release ropinirole 2 mg tablet 2 mg PO QPM 10/25/23 11/28/23 History tizanidine 4 mg tablet 4 mg PO Q12H PRN MUSCLE SPASMS 10/25/23 11/28/23 History Allergies Allergy/AdvReac Type Severity Reaction Status Date / Time Iodinated Contrast Media Allergy Unknown Verified 11/28/23 13:22 latex Allergy Unknown Verified 11/28/23 13:22 Exam Constitutional Vital Signs, click to edit/add: Last Vital Signs Temp 98.8 F 11/28/23 15:34 Pulse 86 11/28/23 15:34 Resp 18 11/28/23 15:34 BP 101/64 11/28/23 15:34 Pulse Ox 97 11/28/23 16:53 O2 Del Method Nasal Cannula 11/28/23 16:53 O2 Flow Rate 2 11/28/23 16:53 Documenting provider has reviewed patient's vital signs: yes Common normals: no apparent distress, average body habitus, oriented x3, healthy appearing, alert and well nourished GI Inspection: abdominal wall ecchymosis, edema findings and localized swelling (8 x 9 cm area of redness and in the center is purulent drainage from 1 mm ) GI image (female): 1. area of redness and swelling with a 1-2 mm opening draining purulent drainage Neuro Common normals: oriented x3 and CN's II-XII intact bilaterally Results Labs Labs: Abnormal lab results 11/28/23 Range/Units 09:58 WBC 11.2 H (4.0-11.0) 10^3/uL RBC 3.84 L (4.20-5.40) 10^6/uL Hgb 11.1 L (12.0-16.0) g/dL Hct 35.6 L (36.0-48.0) % Plt Count 464 H (150-450) 10^3/uL MPV 8.4 L (9.5-13.5) fL Neut % (Auto) 75.6 H (43.0-75.0) % Lymph % (Auto) 12.3 L (20.5-60.0) % Neut # (Auto) 8.5 H (1.4-6.5) 10^3/uL Daniels # (Auto) 1.0 H (0.3-0.8) 10^3/uL Abs Immat Gran (auto) 0.05 H (0.00-0.03) 10^3/uL PT 11.8 H (9.0-11.6) sec Potassium 3.3 L (3.5-5.1) mmol/L Chloride 97 L (98-107) mmol/L Glucose 116 H (74-106) mg/dL Diabetes panel 11/28/23 Range/Units 09:58 Sodium 136 (136-145) mmol/L Potassium 3.3 L (3.5-5.1) mmol/L Chloride 97 L (98-107) mmol/L Carbon Dioxide 24.9 (21.0-32.0) mmol/L BUN 9.0 (7.0-18.0) mg/dL Creatinine 0.85 (0.55-1.02) mg/dL Glucose 116 H (74-106) mg/dL Calcium 9.0 (8.5-10.1) mg/dL Calcium panel 11/28/23 Range/Units 09:58 Calcium 9.0 (8.5-10.1) mg/dL Pituitary panel 11/28/23 Range/Units 09:58 Sodium 136 (136-145) mmol/L Potassium 3.3 L (3.5-5.1) mmol/L Chloride 97 L (98-107) mmol/L Carbon Dioxide 24.9 (21.0-32.0) mmol/L BUN 9.0 (7.0-18.0) mg/dL Creatinine 0.85 (0.55-1.02) mg/dL Glucose 116 H (74-106) mg/dL Calcium 9.0 (8.5-10.1) mg/dL Adrenal panel 11/28/23 Range/Units 09:58 Sodium 136 (136-145) mmol/L Potassium 3.3 L (3.5-5.1) mmol/L Chloride 97 L (98-107) mmol/L Carbon Dioxide 24.9 (21.0-32.0) mmol/L BUN 9.0 (7.0-18.0) mg/dL Creatinine 0.85 (0.55-1.02) mg/dL Glucose 116 H (74-106) mg/dL Calcium 9.0 (8.5-10.1) mg/dL All other labs normal. Imaging Abdomen CT scan report/results: report reviewed and image reviewed Assessment and Plan Assessment and Plan (1) Abdominal abscess: (2) Abdominal hematoma: (3) High cholesterol: (4) IBS (irritable bowel syndrome): Plan incision and drainage of abdominal wall abscess versus hematoma under local anesthesia. Risks benefits and alternatives to procedure may include infection which she artery has bleeding pain or discomfort. She voiced understanding of all the above. She wished to proceed.
[2023-11-28] MEDS: CLINDAMYCIN PHOS 300 MG/50 ML PIGGYBACK 100 MG IV ×2 (17:16→23:05)
--- NOTE | 2023-11-28 17:17 | P.GSPRC_ITS ---
Date of procedure: 11/28/23 Indications for Procedure: abdominal wall abscess epigastrium Pre-op diagnosis: abdominal wall abscess epigastrium Post-op diagnosis: same as pre-op Procedure: incision and drainage of abdominal wall abscess under local Anesthesia: local Surgeon: Rivas Blanco Procedure Summary: informed consent was obtained from the patient preoperatively. The epigastric area of the abdominal wall was prepped and draped usual sterile fashion. One percent Xylocaine with epinephrine 20 mL used anesthetize area locally and a tra nsverse incision was made through the area of purulence in the previous opening. The area was explored with a hemostat and drained and then packed with iodoform gauze half-inch. Sterile dressing was placed. Hemostasis was maintained. Complications: No Condition: stable Disposition: floor
[2023-11-28] MEDS: LIDOCAINE HCL 1% 200 MG/20 ML MDV INJ (18:15)
[2023-11-28] MEDS: MELOXICAM 7.5 MG TABLET 15 MG PO (21:27)
[2023-11-28] MEDS: DULOXETINE HCL 30 MG CAPSULE.DR PO (21:27)
[2023-11-28] MEDS: ATORVASTATIN CALCIUM 20 MG TABLET PO (21:27)
[2023-11-28] MEDS: DICYCLOMINE HCL 10 MG CAPSULE PO (21:27)
[2023-11-28] MEDS: OMEPRAZOLE 40 MG CAPSULE.DR PO (21:27)
[2023-11-28] MEDS: FLUCONAZOLE 100 MG TABLET 200 MG PO (21:27)
[2023-11-28] MEDS: ROPINIROLE HCL 1 MG TABLET 2 MG PO (21:33)
[2023-11-29] VITALS (9 sets, daily range): BP systolic 88–110; BP diastolic 56–70; PULSE 64–76; TEMP 36.3–36.7; O2SAT 92–95
[2023-11-29] MEDS: CLINDAMYCIN PHOS 300 MG/50 ML PIGGYBACK 100 MG IV ×4 (04:28→23:40)
[2023-11-29 05:25] LABS: Basophils Absolute Auto 0.1 10^3/uL (0.0-0.1); Basophils Percent Auto 0.6 % (0.2-2.0); Eosinophils Absolute Auto 0.5 10^3/uL (0.0-0.7); Eosinophils Percent Auto 4.8 % (0.9-7.0); Hematocrit 30.4 % (36.0-48.0); Hemoglobin 9.5 g/dL (12.0-16.0); Immature Granulocytes Abs Auto 0.03 10^3/uL (0.00-0.03); Immature Granulocytes Pct Auto 0.3 % (0.0-0.5); Lymphocytes Absolute Auto 1.4 10^3/uL (1.2-3.8); Lymphocytes Percent Auto 14.9 % (20.5-60.0); Mean Corpuscular HGB Conc 31.3 g/dL (29.9-35.2); Mean Corpuscular Hemoglobin 28.8 pg (26.7-34.0); Mean Corpuscular Volume 92.1 fL (81.0-99.0); Mean Platelet Volume 8.5 fL (9.5-13.5); Monocytes Absolute Auto 1.1 10^3/uL (0.3-0.8); Monocytes Percent Auto 11.6 % (1.7-12.0); Neutrophils Absolute Auto 6.4 10^3/uL (1.4-6.5); Neutrophils Percent Auto 67.8 % (43.0-75.0); Platelet Count 394 10^3/uL (150-450); Red Cell Distribution Width 13.4 % (11.0-15.0); White Blood Count 9.5 10^3/uL (4.0-11.0)
[2023-11-29 05:46] LABS: Alanine Aminotransferase 19 U/L (14-59); Albumin Globulin Ratio 0.3; Albumin Level 1.5 g/dL (3.4-5.0); Alkaline Phosphatase 127 U/L (46-116); Anion Gap 12.3; Aspartate Amino Transferase 20 U/L (15-37); BUN Creatinine Ratio 9.1; Bilirubin Total 0.4 mg/dL (0.2-1.0); Calcium 8.3 mg/dL (8.5-10.1); Carbon Dioxide 26.9 mmol/L (21.0-32.0); Chloride 100 mmol/L (98-107); Estimated GFR (African America >60 (>=60); Estimated GFR (Non-African Ame >60 (>=60); Globulin 4.4 g/dL; Glucose 118 mg/dL (74-106); Potassium 3.2 mmol/L (3.5-5.1); Sodium 136 mmol/L (136-145); Total Protein 5.9 g/dL (6.4-8.2)
--- NOTE | 2023-11-29 07:43 | P.HP_ITS ---
HPI H&P: HPI History of Present Illness Chief complaint: ABDOMINAL PAIN Opioid HPI Opioid Management Most Recent Opioid Data: Last Pain Scale 2 11/28/23 17:03 Last Pain Assessment 11/29/23 06:00 Last MAR Pain Assessment 11/28/23 17:03 PFSH PFS Medical History (Updated 11/28/23 @ 12:54 by José Miguel Hanks MD) Transaminitis ?R74.01 - Elevation of levels of liver transaminase levels (ICD-10) Leukocytosis ?D72.829 - Elevated white blood cell count, unspecified (ICD-10) Lesion of liver greater than 1 cm in diameter ?K76.9 - Liver disease, unspecified (ICD-10) GERD (gastroesophageal reflux disease) ?K21.9 - Gastro-esophageal reflux disease without esophagitis (ICD-10) RLS (restless legs syndrome) ?G25.81 - Restless legs syndrome (ICD-10) Depression ?F32.A - Depression, unspecified (ICD-10) Lateral meniscus tear ?S83.289A - Other tear of lateral meniscus, current injury, unspecified knee, initial encounter (ICD-10) Tonsillectomy planned Arthritis ?M19.90 - Unspecified osteoarthritis, unspecified site (ICD-10) Shingles ?B02.9 - Zoster without complications (ICD-10) Surgical History History of removal of ovarian cyst ?Z98.890 - Other specified postprocedural states (ICD-10) ?Z87.42 - Personal history of other diseases of the female genital tract (ICD-10) History of tonsillectomy ?Z90.89 - Acquired absence of other organs (ICD-10) Hx of appendectomy ?Z90.49 - Acquired absence of other specified parts of digestive tract (ICD- 10) Family History Sister Family history of cancer Mother Family history of cancer Aunt Family history of cancer Social History Within the past year, how often did you have a drink containing alcohol: monthly or less Smoking status: Never smoker Non-prescribed substance use: denies use Highest level of school completed/degree received: some college, no degree Meds Home Medications and Allergies Home Medications ?Medication ?Instructions ?Recorded ?Confirmed ?Type atorvastatin 20 mg tablet 20 mg PO .PM 10/25/23 11/28/23 History dicyclomine 10 mg capsule 10 mg PO BID 10/25/23 11/28/23 History duloxetine 30 mg capsule,delayed 30 mg PO BID 10/25/23 11/28/23 History release meloxicam 15 mg tablet 15 mg PO .PM 10/25/23 11/28/23 History pantoprazole 40 mg tablet,delayed 40 mg PO Q12H 10/25/23 11/28/23 History release ropinirole 2 mg tablet 2 mg PO QPM 10/25/23 11/28/23 History tizanidine 4 mg tablet 4 mg PO Q12H PRN MUSCLE SPASMS 10/25/23 11/28/23 History Allergies Allergy/AdvReac Type Severity Reaction Status Date / Time Iodinated Contrast Media Allergy Unknown Verified 11/28/23 13:22 latex Allergy Unknown Verified 11/28/23 13:22 Exam Constitutional Vital Signs, click to edit/add: Last Vital Signs Temp 98.1 F 11/29/23 03:00 Pulse 76 11/29/23 03:00 Resp 18 11/29/23 03:00 BP 104/65 11/29/23 03:00 Pulse Ox 94 L 11/29/23 03:00 O2 Del Method Room Air 11/29/23 03:00 O2 Flow Rate 2 11/28/23 16:53 Results Labs Labs: Short CBC 11/28/23 11/29/23 Range/Units 09:58 04:18 WBC 11.2 H 9.5 (4.0-11.0) 10^3/uL Hgb 11.1 L 9.5 L (12.0-16.0) g/dL Hct 35.6 L 30.4 L (36.0-48.0) % Plt Count 464 H 394 (150-450) 10^3/uL BMP 11/28/23 11/29/23 09:58 04:18 Sodium 136 136 Potassium 3.3 L 3.2 L Chloride 97 L 100 Carbon Dioxide 24.9 26.9 BUN 9.0 7.0 Creatinine 0.85 0.77 Glucose 116 H 118 H Calcium 9.0 8.3 L Liver Function 11/29/23 Range/Units 04:18 Total Bilirubin 0.4 (0.2-1.0) mg/dL AST 20 (15-37) U/L ALT 19 (14-59) U/L Alkaline Phosphatase 127 H (46-116) U/L Albumin 1.5 L (3.4-5.0) g/dL Assessment and Plan Assessment and Plan (1) Abdominal abscess: (2) Abdominal hematoma: (3) High cholesterol: (4) IBS (irritable bowel syndrome):
[2023-11-29] MEDS: POTASSIUM CHLORIDE 10 MEQ ER TABLET 20 MEQ PO ×2 (08:39→21:36)
[2023-11-29] MEDS: FLUCONAZOLE 100 MG TABLET 200 MG PO (08:39)
[2023-11-29] MEDS: DICYCLOMINE HCL 10 MG CAPSULE PO ×2 (08:39→21:36)
[2023-11-29] MEDS: DULOXETINE HCL 30 MG CAPSULE.DR PO ×2 (08:39→21:36)
[2023-11-29] MEDS: OMEPRAZOLE 40 MG CAPSULE.DR PO ×2 (08:39→21:36)
[2023-11-29] MEDS: DEXTROSE 5 %-0.45 % SOD CHLORD 1,000 ML 100 ML IV ×2 (10:28→21:42)
[2023-11-29] MEDS: CEFTAZIDIME 2,000 MG in 0.9 % SODIUM CHLORIDE 100 ML 200 MG IV ×2 (10:30→17:21)
--- NOTE | 2023-11-29 12:07 | P.PN_ITS ---
Progress Note: Subjective Subjective Interval history: Patient feels much improved after abscess was drained yesterday. Pain improved Exam Constitutional Vital Signs, click to edit/add: Last Vital Signs Temp 97.7 F 11/29/23 08:42 Pulse 65 11/29/23 08:42 Resp 16 11/29/23 08:42 BP 101/58 11/29/23 08:42 Pulse Ox 95 11/29/23 11:15 O2 Del Method Room Air 11/29/23 11:15 O2 Flow Rate 2 11/28/23 16:53 Documenting provider has reviewed patient's vital signs: yes Common normals: no apparent distress Respiratory Common normals: normal respiratory effort Cardio Common normals: regular rate and regular rhythm GI Common normals: soft to palpation; negative for Normal to inspection, nondistended, normoactive bowel sounds present (dressing in place, with seepage through the dressing) Progress Note: Objective Labs Labs: Short CBC 11/29/23 Range/Units 04:18 WBC 9.5 (4.0-11.0) 10^3/uL Hgb 9.5 L (12.0-16.0) g/dL Hct 30.4 L (36.0-48.0) % Plt Count 394 (150-450) 10^3/uL BMP 11/29/23 04:18 Sodium 136 Potassium 3.2 L Chloride 100 Carbon Dioxide 26.9 BUN 7.0 Creatinine 0.77 Glucose 118 H Calcium 8.3 L Liver Function 11/29/23 Range/Units 04:18 Total Bilirubin 0.4 (0.2-1.0) mg/dL AST 20 (15-37) U/L ALT 19 (14-59) U/L Alkaline Phosphatase 127 H (46-116) U/L Albumin 1.5 L (3.4-5.0) g/dL Progress Note: A&P Assessment and Plan (1) Abdominal abscess: (2) Abdominal hematoma: (3) High cholesterol: (4) IBS (irritable bowel syndrome): Plan Leukocytosis, thrombocythemia, secondary to abscess which could be related to the liver biopsy although it was an extended period of time ago. Drained yesterday. Will check on cultures. Do blood cultures if she spikes a fever. White blood cell count is improved today. Continue current antibiotics would broaden spectrum of the antibiotic by adding Fortaz. L Hypokalemia-supplement Iron deficiency anemia-monitor daily Severe protein calorie malnutrition-diet supplement Hypercholesterolemia-continue with home medications Inpatient criteria: Patient with a progressive abscess formation as an outpatient, failed treatment as an outpatient she has seen her oncologist. Abscess drained. She will need 2 to 3 days of IV antibiotics. Change patient to inpatient status is medically necessary treatment will span 2 midnights. May need further surgical debridement based on symptoms
--- NOTE | 2023-11-29 13:31 | SWNOTE1 ---
KIRSTEN met with pt to discuss dc needs. Pt lives at home with her and she is independent at home. Pt will have wound care at home, it will need changed once daily. KIRSTEN spoke with her about home health and pt mentioned going to wound clinic to have it done. KIRSTEN advised since it is daily she would need to come to [facility] to have it done here at hospital if she was not going to do home with HH. She voiced understanding. She is not sure what the dressing change entails, but will find out today. KIRSTEN did advise if she comes to [facility] she would need to bring her own supplies, she voiced understanding. At this time, SW to check back in tomorrow and see what her final decision is. KIRSTEN did notify case management as well so we can get order for pt to come in to [facility].
[2023-11-29] MEDS: OXYCODONE HCL/ACETAMINOPHEN 5MG/325MG 1 TAB PO ×2 (13:40→21:36)
[2023-11-29] MEDS: PROSTAT 15 GM PROTEIN/100 CAL 30 ML LIQUID PACKET PO ×2 (13:40→21:36)
[2023-11-29] MEDS: ENSURE HP 237 ML LIQUID PO ×2 (13:40→21:35)
[2023-11-29] MEDS: L. ACIDOPHILUS/L.BULGARICUS 1 PACKET GRAN.PACK PO ×2 (13:40→21:36)
--- NOTE | 2023-11-29 14:17 | CM.NOTE ---
[facility] form completed and call infusion center about pt. Pt will not discharge today. Pt will need daily drsg changes. SW updated to fax form on day pt discharges.
[2023-11-29] MEDS: ATORVASTATIN CALCIUM 20 MG TABLET PO (21:36)
[2023-11-29] MEDS: MELOXICAM 7.5 MG TABLET 15 MG PO (21:36)
[2023-11-29] MEDS: ROPINIROLE HCL 1 MG TABLET 2 MG PO (21:36)
[2023-11-30] VITALS (10 sets, daily range): BP systolic 101–113; BP diastolic 60–73; PULSE 55–72; TEMP 36.3–36.6; O2SAT 91–97; BMI 23.8
[2023-11-30] MEDS: CEFTAZIDIME 2,000 MG in 0.9 % SODIUM CHLORIDE 100 ML 200 MG IV ×3 (01:47→17:43)
[2023-11-30] MEDS: CLINDAMYCIN PHOS 300 MG/50 ML PIGGYBACK 100 MG IV ×4 (04:01→22:47)
[2023-11-30 04:53] LABS: Basophils Absolute Auto 0.1 10^3/uL (0.0-0.1); Basophils Percent Auto 1.3 % (0.2-2.0); Eosinophils Absolute Auto 0.7 10^3/uL (0.0-0.7); Eosinophils Percent Auto 12.9 % (0.9-7.0); Hematocrit 31.9 % (36.0-48.0); Immature Granulocytes Abs Auto 0.02 10^3/uL (0.00-0.03); Immature Granulocytes Pct Auto 0.4 % (0.0-0.5); Lymphocytes Absolute Auto 1.5 10^3/uL (1.2-3.8); Mean Corpuscular HGB Conc 31.3 g/dL (29.9-35.2); Mean Corpuscular Hemoglobin 29.5 pg (26.7-34.0); Mean Corpuscular Volume 94.1 fL (81.0-99.0); Mean Platelet Volume 8.5 fL (9.5-13.5); Monocytes Absolute Auto 0.6 10^3/uL (0.3-0.8); Monocytes Percent Auto 11.8 % (1.7-12.0); Neutrophils Absolute Auto 2.4 10^3/uL (1.4-6.5); Neutrophils Percent Auto 45.6 % (43.0-75.0); Platelet Count 396 10^3/uL (150-450); Red Blood Count 3.39 10^6/uL (4.20-5.40); Red Cell Distribution Width 13.2 % (11.0-15.0); White Blood Count 5.3 10^3/uL (4.0-11.0)
[2023-11-30 05:12] LABS: Alanine Aminotransferase 26 U/L (14-59); Albumin Globulin Ratio 0.4; Albumin Level 1.6 g/dL (3.4-5.0); Alkaline Phosphatase 125 U/L (46-116); Anion Gap 10.4; Aspartate Amino Transferase 25 U/L (15-37); BUN Creatinine Ratio 15.6; Bilirubin Total 0.2 mg/dL (0.2-1.0); Calcium 8.7 mg/dL (8.5-10.1); Carbon Dioxide 28.7 mmol/L (21.0-32.0); Chloride 104 mmol/L (98-107); Estimated GFR (African America >60 (>=60); Estimated GFR (Non-African Ame >60 (>=60); Globulin 4.3 g/dL; Glucose 99 mg/dL (74-106); Potassium 4.1 mmol/L (3.5-5.1); Sodium 139 mmol/L (136-145); Total Protein 5.9 g/dL (6.4-8.2)
[2023-11-30] MEDS: OXYCODONE HCL/ACETAMINOPHEN 5MG/325MG 1 TAB PO ×4 (06:26→20:18)
--- NOTE | 2023-11-30 07:54 | P.PN_ITS ---
Progress Note: Subjective Subjective Interval history: Patient continues to feel better still has some issues with pain overnight. Exam Constitutional Vital Signs, click to edit/add: Last Vital Signs Temp 97.4 F L 11/30/23 07:49 Pulse 55 L 11/30/23 07:49 Resp 16 11/30/23 07:49 BP 104/67 11/30/23 07:49 Pulse Ox 96 11/30/23 07:49 O2 Del Method Room Air 11/30/23 07:49 O2 Flow Rate 2 11/28/23 16:53 Documenting provider has reviewed patient's vital signs: yes Common normals: no apparent distress Respiratory Common normals: normal respiratory effort Cardio Common normals: regular rate and regular rhythm GI Common normals: soft to palpation; negative for Normal to inspection, nondistended, normoactive bowel sounds present (Clean dressing in place) Progress Note: Objective Labs Labs: Short CBC 11/30/23 Range/Units 04:26 WBC 5.3 (4.0-11.0) 10^3/uL Hgb 10.0 L (12.0-16.0) g/dL Hct 31.9 L (36.0-48.0) % Plt Count 396 (150-450) 10^3/uL BMP 11/30/23 04:26 Sodium 139 Potassium 4.1 Chloride 104 Carbon Dioxide 28.7 BUN 10.0 Creatinine 0.64 Glucose 99 Calcium 8.7 Liver Function 11/30/23 Range/Units 04:26 Total Bilirubin 0.2 (0.2-1.0) mg/dL AST 25 (15-37) U/L ALT 26 (14-59) U/L Alkaline Phosphatase 125 H (46-116) U/L Albumin 1.6 L (3.4-5.0) g/dL Progress Note: A&P Assessment and Plan (1) Abdominal abscess: (2) Abdominal hematoma: (3) High cholesterol: (4) IBS (irritable bowel syndrome): Plan Leukocytosis, thrombocythemia, secondary to abscess which could be related to the liver biopsy although it was an extended period of time ago. Drained on day of admission. Culture will result should be back later today. White blood cell count returned to normal. Will saline lock today. Encourage p.o. intake. Eddbtgpveyn-lwzzdlbkni-dhjlkchr Iron deficiency anemia-monitor daily Severe protein calorie malnutrition-diet supplement Hypercholesterolemia-continue with home medications Inpatient criteria: Patient with a progressive abscess formation as an outpatient, failed treatment as an outpatient she has seen her oncologist. Abscess drained. She will need 2 to 3 days of IV antibiotics. Change patient to inpatient status as medically necessary treatment will span 2 midnights. May need further surgical debridement based on symptoms
[2023-11-30] MEDS: 0.9 % SODIUM CHLORIDE 250 ML 10 ML IV (09:36)
[2023-11-30] MEDS: OMEPRAZOLE 40 MG CAPSULE.DR PO ×2 (09:38→20:18)
[2023-11-30] MEDS: PROSTAT 15 GM PROTEIN/100 CAL 30 ML LIQUID PACKET PO ×2 (09:38→20:17)
[2023-11-30] MEDS: L. ACIDOPHILUS/L.BULGARICUS 1 PACKET GRAN.PACK PO ×2 (09:38→20:17)
[2023-11-30] MEDS: DICYCLOMINE HCL 10 MG CAPSULE PO ×2 (09:39→20:17)
[2023-11-30] MEDS: POTASSIUM CHLORIDE 10 MEQ ER TABLET 20 MEQ PO ×2 (09:39→20:18)
[2023-11-30] MEDS: FLUCONAZOLE 100 MG TABLET 200 MG PO (09:39)
[2023-11-30] MEDS: DULOXETINE HCL 30 MG CAPSULE.DR PO ×2 (09:44→20:17)
--- NOTE | 2023-11-30 10:47 | SWNOTE1 ---
Important Message from Medicare reviewed and discussed with patient. Pt. verbalized understanding and signed the form. Original given to patient and copy placed in patient?s chart. This was done on 11/29/23.
--- NOTE | 2023-11-30 11:54 | SWNOTE1 ---
SW spoke with pt about coming to [facility] for dressing changes and she is in agreement and would like to do that. SW did advise her that she will have to bring her own supplies. SW provided her with the supplies listed in the wound care order. SW was in room when therapy was in room, they are recommending outpt therapy. Pt is going to think about it and let SW know tomorrow.
--- NOTE | 2023-11-30 12:29 | PT.DAILY ---
Physical Therapy Daily Note PT Daily Note/Assess Start: 11/30/23 12:25 Freq: Status: Active Protocol: Document 11/30/23 12:25 JACKIE (Rec: 11/30/23 12:28 JACKIE [id number]) Physical Therapy Daily Note/Assessment Time In/Time Out Time In 11:15 Time Out 11:35 Pain In Pain N/A Pain Out Pain N/A Subjective Subjective Pt supine upon arrival. agrees to PT. Therapeutic Exercise Time Therapeutic Exercise Minutes (minutes) 3 Therapeutic Exercise Units 0 Therapeutic Exercise Treatment Therapeutic Exercise Treatment Seated bilat LE strengthening ex complete in BS chair 10x ea . Therapeutic Activity Time Therapeutic Activity Minutes (minutes) 10 Therapeutic Activity Units 1 Therapeutic Activity Treatment Bed Mobility Ability Independent Chair Transfer Ability Standby Assistance Therapeutic Activity Comments Supine>sit IND. Sit>stand SBA for safety. Pt amb without AD 200' SBA with occ UE support on handrail in martínez. Pt needs to use restroom upon returning to room. Able to complete toilet transfers, pericare and hand hygiene IND. Pt amb over to BS chair without AD 30' no LOB. Pt performs bilat LE strengthening ex in BS chair. remains in BS chair with call light in reach and social sciences instructor present. Total Physical Therapy Time Total Therapy Minutes 13 Total Physical Therapy Units 1 Summary Daily Note Summary Fair+ dynamic standing balance with occ UE support on handrail. Min fatigue upon completion. Would benefit from OP PT to regain endurance and strength to return to PLOF.
--- NOTE | 2023-11-30 13:48 | PC.NURSE ---
outer dressing changed at this time
[2023-11-30] MEDS: ROPINIROLE HCL 1 MG TABLET 2 MG PO (20:20)
[2023-11-30] MEDS: ATORVASTATIN CALCIUM 20 MG TABLET PO (21:12)
[2023-11-30] MEDS: MELOXICAM 7.5 MG TABLET 15 MG PO (21:12)
[2023-12-01] MEDS: CEFTAZIDIME 2,000 MG in 0.9 % SODIUM CHLORIDE 100 ML 200 MG IV (01:50)
[2023-12-01 03:51] VITALS: O2SAT 92
[2023-12-01 04:00] VITALS: BP 135/82; PULSE 69; TEMP 36.6; O2SAT 94
[2023-12-01] MEDS: CLINDAMYCIN PHOS 300 MG/50 ML PIGGYBACK 100 MG IV ×2 (04:20→10:42)
[2023-12-01] MEDS: OXYCODONE HCL/ACETAMINOPHEN 5MG/325MG 1 TAB PO (04:56)
[2023-12-01 05:05] LABS: Basophils Absolute Auto 0.1 10^3/uL (0.0-0.1); Basophils Percent Auto 1.3 % (0.2-2.0); Eosinophils Absolute Auto 0.9 10^3/uL (0.0-0.7); Eosinophils Percent Auto 12.6 % (0.9-7.0); Hematocrit 33.8 % (36.0-48.0); Hemoglobin 10.3 g/dL (12.0-16.0); Immature Granulocytes Abs Auto 0.03 10^3/uL (0.00-0.03); Immature Granulocytes Pct Auto 0.4 % (0.0-0.5); Lymphocytes Absolute Auto 1.2 10^3/uL (1.2-3.8); Lymphocytes Percent Auto 17.8 % (20.5-60.0); Mean Corpuscular HGB Conc 30.5 g/dL (29.9-35.2); Mean Corpuscular Hemoglobin 28.7 pg (26.7-34.0); Mean Corpuscular Volume 94.2 fL (81.0-99.0); Mean Platelet Volume 8.6 fL (9.5-13.5); Monocytes Absolute Auto 0.7 10^3/uL (0.3-0.8); Monocytes Percent Auto 10.7 % (1.7-12.0); Neutrophils Absolute Auto 3.9 10^3/uL (1.4-6.5); Neutrophils Percent Auto 57.2 % (43.0-75.0); Platelet Count 467 10^3/uL (150-450); Red Blood Count 3.59 10^6/uL (4.20-5.40); Red Cell Distribution Width 13.2 % (11.0-15.0); White Blood Count 6.8 10^3/uL (4.0-11.0)
[2023-12-01 05:31] LABS: Alanine Aminotransferase 25 U/L (14-59); Albumin Globulin Ratio 0.4; Albumin Level 1.8 g/dL (3.4-5.0); Alkaline Phosphatase 126 U/L (46-116); Aspartate Amino Transferase 15 U/L (15-37); BUN Creatinine Ratio 18.1; Bilirubin Total 0.2 mg/dL (0.2-1.0); Calcium 9.3 mg/dL (8.5-10.1); Carbon Dioxide 29.2 mmol/L (21.0-32.0); Chloride 103 mmol/L (98-107); Estimated GFR (African America >60 (>=60); Estimated GFR (Non-African Ame >60 (>=60); Globulin 4.3 g/dL; Glucose 86 mg/dL (74-106); Potassium 5.2 mmol/L (3.5-5.1); Sodium 139 mmol/L (136-145); Total Protein 6.1 g/dL (6.4-8.2)
--- NOTE | 2023-12-01 06:25 | PC.NURSE ---
Patient was premedicated prior to wound care. Wound unpacked. Serosanguineous drainage noticed. Patient showered. Tolerated well. Flushed with saline and wound repacked. Wound edges light pink. Covered with ABD pad.
[2023-12-01 07:45] LABS: Glucometer 93 mg/dL (74-106)
[2023-12-01 07:46] VITALS: BP 125/70; PULSE 74; TEMP 36.5; O2SAT 93
--- NOTE | 2023-12-01 07:56 | P.DS_ITS ---
DS: Providers Provider Date of admission: 11/29/23 10:19 Primary care physician: ISABEL CRYSTAL Consults: 11/28/23 11:10 Consult to General Surgeon Routine Consulting Provider: Rivas Blanco Reason for consultation: abd wall abscess Has provider been notified: Yes 11/29/23 07:45 Consult to Pharmacy Routine Consulting Provider: Reason for consultation: Please [place] me when Med Rec is Updated Has provider been notified: No Occupational Therapy Eval and Treat Routine Reason for consultation: Only if needed for Rehab Has provider been notified: No Physical Therapy Eval and Treat Routine Reason for consultation: Eval and Treat Has provider been notified: No DS: Diagnosis Discharge Diagnosis (1) Abdominal abscess: (2) Abdominal hematoma: (3) High cholesterol: (4) IBS (irritable bowel syndrome): Plan Leukocytosis, thrombocythemia, secondary to abscess which could be related to the liver biopsy although it was an extended period of time ago. Drained on day of admission. Culture will result should be back later today. White blood cell count returned to normal. Will saline lock today. Encourage p.o. intake. Abgoarehmnl-vpbbutzpqo-jhlssbse Iron deficiency anemia-monitor daily Severe protein calorie malnutrition-diet supplement Hypercholesterolemia-continue with home medications Inpatient criteria: Patient with a progressive abscess formation as an outpatient, failed treatment as an outpatient she has seen her oncologist. Abscess drained. She will need 2 to 3 days of IV antibiotics. Change patient to inpatient status as medically necessary treatment will span 2 midnights. May need further surgical debridement based on symptoms ? DS: Summary Hospital Course Hospital Course: Patient was seen in the ER with increasing abdominal pain. Found to have abscess in her abdomen, superficial, has some drainage and cultures were obtained in ER, patient was admitted placed on IV antibiotic consult to general surgery who drained it at bedside. Large amount of purulent malodorous drainage. She had leukocytosis initially that is resolved. 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 If sensitivities return as oral agents sensitive will be discharged home in improving condition. Medications see list. Follow-up with PCP and general surgery within the next week. Time Spent with Patient Time attestation: Total time spent providing and/or coordinating discharge services: Time spent: greater than 30 minutes Exam Constitutional Vital Signs, click to edit/add: Last Vital Signs Temp 97.7 F 12/01/23 07:46 Pulse 74 12/01/23 07:46 Resp 18 12/01/23 07:46 BP 125/70 12/01/23 07:46 Pulse Ox 93 L 12/01/23 07:46 O2 Del Method Room Air 12/01/23 07:46 O2 Flow Rate 2 11/28/23 16:53 Documenting provider has reviewed patient's vital signs: yes Common normals: no apparent distress Respiratory Common normals: normal respiratory effort Cardio Common normals: regular rate and regular rhythm GI Common normals: soft to palpation; negative for Normal to inspection, nondistended, normoactive bowel sounds present (Clean dressing in place) DS: Data Data Completed and Pending Labs on day of discharge: Labs from last 24 hours 12/01/23 12/01/23 07:44 04:17 WBC 6.8 RBC 3.59 L Hgb 10.3 L Hct 33.8 L MCV 94.2 MCH 28.7 MCHC 30.5 RDW 13.2 Plt Count 467 H MPV 8.6 L Neut % (Auto) 57.2 Lymph % (Auto) 17.8 L Flagler % (Auto) 10.7 Eos % (Auto) 12.6 H Baso % (Auto) 1.3 Neut # (Auto) 3.9 Lymph # (Auto) 1.2 [place] # (Auto) 0.7 Eos # (Auto) 0.9 H Baso # (Auto) 0.1 Abs Immat Gran (auto) 0.03 Imm/Tot Granulo (auto) 0.4 Sodium 139 Potassium 5.2 H Chloride 103 Carbon Dioxide 29.2 Anion Gap 12.0 BUN 15.0 Creatinine 0.83 Est GFR ( Amer) >60 Est GFR (Non-Af Amer) >60 BUN/Creatinine Ratio 18.1 Glucose 86 Calcium 9.3 Total Bilirubin 0.2 AST 15 ALT 25 Alkaline Phosphatase 126 H Total Protein 6.1 L Albumin 1.8 L Globulin 4.3 Albumin/Globulin Ratio 0.4 POC Glucose 93 Preliminary micro results at discharge 11/28/23 10:01 Abscess Culture - Preliminary Abdomen Fusobacterium nucleatum Discharge Plan Discharge Disposition: Home, Self-Care Discharge Medications: New clindamycin HCl 300 mg capsule 300 mg PO Q6H 10 Days Qty: 40 0RF Ensure Active Protein-Muscle Liquid 1 ea PO BID Qty: 5688 11RF Continued atorvastatin 20 mg tablet 20 mg PO .PM Hold Instructions: Until discussed with Dr Varela meloxicam 15 mg tablet 15 mg PO .PM Hold Instructions: Until discussed with Dr Varela ropinirole 2 mg tablet 2 mg PO QPM Rx Instructions: TAKES AT DINNER TIME pantoprazole 40 mg tablet,delayed release (DR/EC) 40 mg PO Q12H duloxetine 30 mg capsule,delayed release(DR/EC) 30 mg PO BID tizanidine 4 mg tablet 4 mg PO Q12H PRN (Reason: MUSCLE SPASMS) dicyclomine 10 mg capsule 10 mg PO BID Print Language: Mohawk Forms: Portal Instructions
--- NOTE | 2023-12-01 10:40 | PT.DAILY ---
Physical Therapy Daily Note PT Daily Note/Assess Start: 11/30/23 12:25 Freq: Status: Active Protocol: Document 12/01/23 10:37 JACKIE (Rec: 12/01/23 10:39 JACKIE [id number]) Physical Therapy Daily Note/Assessment Time In/Time Out Time In 10:20 Time Out 10:30 Pain In Pain N/A Pain Out Pain N/A Subjective Subjective Supine upon arrival. agrees to PT. Therapeutic Activity Time Therapeutic Activity Minutes (minutes) 8 Therapeutic Activity Units 1 Therapeutic Activity Treatment Bed Mobility Ability Independent Chair Transfer Ability Independent Therapeutic Activity Comments Supine>sit IND. Able to fidencio pants and shirt IND. Needs assistance to pull shoes on. Sit>stand IND. Amb in martínez 100 ' without AD SUP. Up/down 12 steps with bilat UE support without difficulty. Amb back to room 100' without AD SUP. Remains in BS chair upon completion with call light in reach and needs met. Total Physical Therapy Time Total Therapy Minutes 8 Total Physical Therapy Units 1 Summary Daily Note Summary Improving gait endurance. Good tolerance with stair training though does require UE support for stability. Planned dc from PT on this date. Would benefit from OP PT to regain strength and endurance to return to PLOF.
[2023-12-01] MEDS: 0.9 % SODIUM CHLORIDE 250 ML 10 ML IV (10:43)
[2023-12-01] MEDS: FLUCONAZOLE 100 MG TABLET 200 MG PO (10:43)
[2023-12-01] MEDS: L. ACIDOPHILUS/L.BULGARICUS 1 PACKET GRAN.PACK PO (10:44)
[2023-12-01] MEDS: DULOXETINE HCL 30 MG CAPSULE.DR PO (10:44)
[2023-12-01] MEDS: PROSTAT 15 GM PROTEIN/100 CAL 30 ML LIQUID PACKET PO (10:44)
[2023-12-01] MEDS: DICYCLOMINE HCL 10 MG CAPSULE PO (10:44)
[2023-12-01] MEDS: OMEPRAZOLE 40 MG CAPSULE.DR PO (10:44)
[2023-12-01] MEDS: CEFTAZIDIME 2,000 MG in 0.9 % SODIUM CHLORIDE 100 ML 100 MG IV (11:53)
[2023-12-01 12:02] VITALS: O2SAT 92
--- NOTE | 2023-12-01 13:02 | SWNOTE1 ---
KIRSTEN faxed order to centralized scheduling. KIRSTEN let pt know again that she will have to buy her own supplies, they are not covered by insurance. She voiced understanding. KIRSTEN called centralized scheduling and left message.
--- NOTE | 2023-12-01 13:22 | SWNOTE1 ---
KIRSTEN spoke to Denice at centralized scheduling and they did receive the order. She voiced [facility] does have the order and should be calling patient.
--- NOTE | 2023-12-02 12:18 | SWNOTE1 ---
KIRSTEN faxed order for wound care for [facility] to Dr. Camara's office as it was not signed. KIRSTEN called over to Dr. Camara's office and they will have him sign and send back. Melva in [facility] called case management and they never received order. KIRSTEN had faxed it down to centralized scheduling and spoke to someone in centralized scheduling and they did receive order and was giving to Mar[facility]. KIRSTEN had this conversation on 12/01/23 with centralized scheduling. Order has now been signed by Dr. Camara and KIRSTEN has faxed and sent order to [facility] and centralized scheduling. KIRSTEN spoke to Melva and pt is coming at 2:00 for dressing change.
--- NOTE | 2023-12-05 13:34 | CM.DCFOLLOWU ---
12/04 2nd attempt. No answer
== END 2023-12-01 13:56 | disposition home or self-care (01) | DRG 602 ==
LOC: ER 11:21 → MS 11:55
PROVIDERS: Admitting Provider Family Medicine; Emergency Provider Emergency Medicine; PCP Family Medicine; Visit Provider Family Medicine
DX: L02.211 Cutaneous abscess of abdominal wall (principal); E43 Unspecified severe protein-calorie malnutrition; E78.00 Pure hypercholesterolemia, unspecified; K58.9 Irritable bowel syndrome, unspecified; D50.9 Iron deficiency anemia, unspecified; E87.6 Hypokalemia; D75.839 Thrombocytosis, unspecified; D72.829 Elevated white blood cell count, unspecified; Z68.23 Body mass index [BMI] 23.0-23.9, adult; K21.9 Gastro-esophageal reflux disease without esophagitis; M19.90 Unspecified osteoarthritis, unspecified site; G25.81 Restless legs syndrome; B96.89 Other specified bacterial agents as the cause of diseases classified elsewhere; F32.A Depression, unspecified; Z90.49 Acquired absence of other specified parts of digestive tract; Z90.89 Acquired absence of other organs; Z98.890 Other specified postprocedural states; Z79.899 Other long term (current) drug therapy
CPT/HCPCS: 36415; 74176; 80048; 80053; 82948; 85025; 85610; 87070; 87076; 94667; 94668; 94761; 96366; 96367; 96368; 96375; 97161; 97165; 97530; 99285; G0378; J1170

== ENCOUNTER 2023-12-16 07:35 | Outpatient (RCR) | payer MEDICARE, SELFPAY ==
--- NOTE | 2023-12-15 15:00 | PC.NURSE ---
1445 Arrival ambulatory for dressing change. Dressing to epigastric area removed, noted some brownish drainageon abd, packing pulled noting mucopurulent drainage on packing. wound irrigated with ns. measurements 2.5 cm deep, wound appears beefy red. measures .5 cm across wound, packed with approx 8-10 inches of 1/4 iodoform gauze, covered with abd, secured with tape, (surroundng skincleansed with warm water soap skin prep applied) toleraated well. released amb.
[2023-12-16 14:00] VITALS: BP 109/71; PULSE 79; TEMP 36.4; O2SAT 93
--- NOTE | 2023-12-16 14:22 | PC.NURSE ---
1400: Pt. to [facility] amb. for daily drsg. change. Pt. to bed. Pt. removed dressing at home after working in the yard stating it was coming off. Wound bed beefy red with well defined wound edges. Wound irrigated with saline. Surrounging area cleansed with soap and water, skin prep applied. Wound packed with approx. 10 iodoform packing. Covered with ABD, secured with mesh tape. Pt. tolerated without c/o. 1413: Pt. d/c'd amb. to home.
[2023-12-17 14:09] VITALS: BP 112/82; PULSE 73; TEMP 36.6; O2SAT 96
--- NOTE | 2023-12-17 14:25 | PC.NURSE ---
pt arrived by self, ambulatory. Pt vitals checked and stable, pt reports no pain, old wound dressing and packing removed, wound cleaned with normal saline, washed around wound with soap and water, skin prep applied around wound, wound repacked with iodoform 1/2 packing, covered with 4x4 gauze, abd, and tape around edges. Pt tolerated well. Pt ambulated self out at discharge.
[2023-12-18 15:15] VITALS: BP 139/81; PULSE 78; TEMP 36.8; O2SAT 96
[2023-12-20 14:18] LABS: Basophils Absolute Auto 0.1 10^3/uL (0.0-0.1); Basophils Percent Auto 1.7 % (0.2-2.0); Eosinophils Absolute Auto 0.3 10^3/uL (0.0-0.7); Eosinophils Percent Auto 7.2 % (0.9-7.0); Hematocrit 38.5 % (36.0-48.0); Hemoglobin 12.4 g/dL (12.0-16.0); Immature Granulocytes Abs Auto 0.01 10^3/uL (0.00-0.03); Immature Granulocytes Pct Auto 0.2 % (0.0-0.5); Lymphocytes Absolute Auto 0.9 10^3/uL (1.2-3.8); Lymphocytes Percent Auto 19.8 % (20.5-60.0); Mean Corpuscular HGB Conc 32.2 g/dL (29.9-35.2); Mean Corpuscular Hemoglobin 30.1 pg (26.7-34.0); Mean Corpuscular Volume 93.4 fL (81.0-99.0); Mean Platelet Volume 8.9 fL (9.5-13.5); Monocytes Absolute Auto 0.7 10^3/uL (0.3-0.8); Monocytes Percent Auto 13.8 % (1.7-12.0); Neutrophils Absolute Auto 2.7 10^3/uL (1.4-6.5); Neutrophils Percent Auto 57.3 % (43.0-75.0); Platelet Count 322 10^3/uL (150-450); Red Blood Count 4.12 10^6/uL (4.20-5.40); Red Cell Distribution Width 15.9 % (11.0-15.0); Reticulocyte Pct Auto 2.78 % (0.60-3.10); White Blood Count 4.7 10^3/uL (4.0-11.0)
[2023-12-20 14:39] LABS: Alanine Aminotransferase 21 U/L (14-59); Albumin Globulin Ratio 0.8; Albumin Level 3.2 g/dL (3.4-5.0); Alkaline Phosphatase 121 U/L (46-116); Anion Gap 14.9; Aspartate Amino Transferase 19 U/L (15-37); BUN Creatinine Ratio 9.9; Bilirubin Total 0.8 mg/dL (0.2-1.0); C Reactive Protein <0.50 mg/dL (<=0.50); Calcium 9.6 mg/dL (8.5-10.1); Carbon Dioxide 25.8 mmol/L (21.0-32.0); Chloride 101 mmol/L (98-107); Estimated GFR (African America >60 (>=60); Estimated GFR (Non-African Ame >60 (>=60); Globulin 4.2 g/dL; Glucose 97 mg/dL (74-106); Lactate Dehydrogenase 201 U/L (81-234); Potassium 3.7 mmol/L (3.5-5.1); Sodium 138 mmol/L (136-145); Total Protein 7.4 g/dL (6.4-8.2)
[2023-12-20 14:40] LABS: Percent Iron Saturation 21.1 %
[2023-12-20 15:17] LABS: Erythrocyte Sedimentation Rate 76 mm/hr (<=30)
== END 2023-12-20 23:59 | disposition home or self-care (01) ==
LOC: INF 07:35
PROVIDERS: PCP Family Medicine; Visit Provider Internal Medicine Hematology & Oncology
DX: D72.829 Elevated white blood cell count, unspecified (principal); D49.0 Neoplasm of unspecified behavior of digestive system; D64.9 Anemia, unspecified; C44.319 Basal cell carcinoma of skin of other parts of face
CPT/HCPCS: 36415; 80053; 82728; 83540; 83550; 83615; 85025; 85045; 85652; 86140; G0463

== ENCOUNTER 2023-12-20 07:29 | Outpatient (RCR) | payer MEDICARE, SELFPAY ==
[2023-12-02 15:21] VITALS: BP 93/61; PULSE 84; TEMP 37.2; O2SAT 95
--- NOTE | 2023-12-02 15:22 | PC.NURSE ---
1355: Pt. to [facility] amb. for daily dressing change. Pt. to supine position on bed. Old dressing removed. Large amount purulent drainage observed to ABD and packing in wound. Substernal wound flushed with saline. Packed with approximately 12 1/2 iodoform packing. Covered with abd. Secured with paper tape. Pt. tolerated with minimal c/o. 1430: Pt. d/c'd amb. to home
--- NOTE | 2023-12-02 15:48 | PC.NURSE ---
Red rash noted around wound from tape. Skin cleansed with soap and water. Dried. Skin prep applied.
--- NOTE | 2023-12-03 14:47 | PC.NURSE ---
moderate amount of yellow brown drainage on the old dressing.
--- NOTE | 2023-12-04 15:07 | PC.NURSE ---
dressing changed as ordered. scant amount of serosang drainage. arnulfo wound red and periwound above the wound hard to the touch.
[2023-12-06 14:00] VITALS: BP 134/62; PULSE 64; TEMP 36.4; O2SAT 99
--- NOTE | 2023-12-07 11:39 | PC.NURSE ---
1055 Arrives ambulatory. Epigastric area dressing intact on arrival, no drainage noted on exterior dressing. Dressing removed, noted purulent drainage on old dressing, as well as packing removed. irrigated wound with ns, skin surrounding wound has decreased reddness from several days ago, washed with soap and water, dried, skin prep appied. 1/2 iodiform gauze packing to wound approx 8 inches worth. wound measured approx 3cm deep as well as transverse measurements of approx 3cc across opening of wound. cpovered with 4x4 folded in half then abd halved, secured with tape. Released ambulatory
[2023-12-08 14:23] VITALS: BP 121/64; PULSE 72; TEMP 36.4; O2SAT 97
--- NOTE | 2023-12-08 14:24 | PC.NURSE ---
1400 Patient arrival ambulatory. patient removed outer dressing epigastric area at home before showering. packing removed approx 8-10 inches with mucopurulent drainage noted. irrigated wound with NSS. Measurements approx 3 cm deep and 3cm length. skin surrounding intact no reddness, noted firmess along top of incision from wound to rib area, patient states some tenderness,but improving.skin surrounding wound washed with soap and water, dried, skin prep applied wound packed with 1/2 iodaform gauze covered with 4x4 and abd secured with tape. released ambulatory.
[2023-12-09 14:50] VITALS: BP 135/70; PULSE 74; TEMP 36.4; O2SAT 97
--- NOTE | 2023-12-09 14:51 | PC.NURSE ---
dressing removed from epigastric area of abdomen, very small amount of drainage noted on old dressing, packing removed, noted mucopurulent drainage on iodaform gauze, approx 12 inches removed, irrigated wound with normal saline solution, surrounding skin washed with soap and water, skin prep applied to surrounding skin, did note some reddness from tape especially superior edge of dressing, repacked with iodoform gauze packing patient supplies packing, she ordered 1/4 inch rather than 1/2 in covered with abd, secured with tape. patient tolerated well. released ambulatory.
[2023-12-10 14:03] VITALS: BP 144/79; PULSE 74; TEMP 36.3; O2SAT 97
--- NOTE | 2023-12-11 12:36 | PC.NURSE ---
Patient called [facility] and stated she will not be in today for her dressing change. She is not feeling well.
[2023-12-12 14:28] VITALS: BP 128/77; PULSE 60; TEMP 36.6; O2SAT 98
[2023-12-13 14:04] VITALS: BP 129/68; PULSE 66; TEMP 36.6; O2SAT 94
--- NOTE | 2023-12-13 14:41 | PC.NURSE ---
1404: Pt. in for daily dressing change. Old dressing removed. Surrounding area red and irritated. Pt. c/o itching. Abdomen cleaned with soap and water. Small amount of purulent/serosang. drainage noted to dressing and packing. Wound bed flushed with saline. Packed with iodoform packing as ordered. Coverd with ABD and secured with mesh tape. Pt. tolerated with no c/o discomfort. 1415: Pt. d/c'd amb. to home.
[2023-12-14 13:55] VITALS: BP 135/73; PULSE 66; TEMP 36.6; O2SAT 93
== END 2023-12-20 23:59 | disposition home or self-care (01) ==
LOC: INF 07:29
PROVIDERS: PCP Family Medicine; Visit Provider Family Medicine
DX: L02.211 Cutaneous abscess of abdominal wall (principal)

== ENCOUNTER 2023-12-27 07:41 | Outpatient (RCR) | payer MEDICARE, SELFPAY ==
[2023-12-27 13:30] VITALS: BP 127/77; PULSE 68; TEMP 37.2; O2SAT 97
--- NOTE | 2023-12-27 13:54 | PC.NURSE ---
1330: Pt in for daily dressing change. See documentation. Pt. tolerated with no c/o discomfort. VSS. 1340: Pt d/c'd to Dr. Varela's office.
== END 2024-01-20 23:59 | disposition home or self-care (01) ==
LOC: INF 07:41
PROVIDERS: PCP Family Medicine; Visit Provider Internal Medicine Hematology & Oncology
DX: D72.829 Elevated white blood cell count, unspecified (principal); D64.9 Anemia, unspecified; D49.0 Neoplasm of unspecified behavior of digestive system; C44.319 Basal cell carcinoma of skin of other parts of face; Z87.891 Personal history of nicotine dependence; Z80.0 Family history of malignant neoplasm of digestive organs; Z80.3 Family history of malignant neoplasm of breast
CPT/HCPCS: G0463

== ENCOUNTER 2024-01-17 07:32 | Outpatient (RCR) | payer MEDICARE, SELFPAY ==
[2023-12-21 14:05] VITALS: BP 121/73; PULSE 79; TEMP 36.4; O2SAT 96
--- NOTE | 2023-12-21 14:27 | PC.NURSE ---
1405: Pt. to [facility] amb. for daily dressing change. Positioned on bed. Dressing changed to mid. upper abdomen, see documentation. Pt. tolerated with minimal c/o discomfort. 1420: Pt. d/c'd amb. to home.
--- NOTE | 2023-12-22 14:24 | PC.NURSE ---
1405: Pt. to [facility] amb. for daily dressing change. Positioned on bed. Dressing changed to mid. upper abdomen, see noted mucopurulent drainage on old dressing, Irrigated with normal saline. packed with 1/4 inch iodaform nugauze, skin around wound waashed with soap and water, dried. skin prep applied. Pt. tolerated with minimal c/o discomfort. 1420: Pt. d/c'd amb. to home.
--- NOTE | 2023-12-23 14:27 | PC.NURSE ---
1415 Pt. to [facility] amb. for daily dressing change. Dressing changed to epigastric area. a mucopurulent drainage on old dressing, Irrigated with normal saline. depth approx 1.5cm as well as 1.5 cm wide. packed with 1/4 inch iodaform nugauze, skin around wound waashed with soap and water, dried. skin prep applied. Pt. tolerated with minimal c/o discomfort. 1425 Pt. d/c'd amb. to home.
--- NOTE | 2023-12-24 19:30 | PC.NURSE ---
Patient arrived to the floor, Dressing was removed. serous-sanguinous drainage noted on 4x4 and packing. Wound irrigated with NS and repacked with sterile gauze. Covered with ABD and tape. patient left the floor at 12:24.
[2023-12-26 11:36] VITALS: BP 136/61; PULSE 61; TEMP 36.2; O2SAT 100
[2023-12-28 14:00] VITALS: BP 111/64; PULSE 68; TEMP 36.4; O2SAT 96
[2023-12-29 10:15] VITALS: BP 123/71; PULSE 67; TEMP 36.6; O2SAT 98
--- NOTE | 2023-12-29 11:05 | PC.NURSE ---
1000 Arrival ambulatory.Alert oriented. Patient removed old dressing and packing at home, has temporary dressing on after showering. dressing removed from epigastric area. irrigated with normal saline, measures approx 1.4 cm in depth and approx 1.4 cm across opening from left to right, skin around wound cleansed with soap and water, dried, applied skin prep, packed wond with 1/4 inch iodaform gauze. covered with 4x4 foled in fourths, secured with cloth tape., patient tolerated well, released ambulatory.
[2023-12-31 16:09] VITALS: BP 120/69; PULSE 70; TEMP 36.2; O2SAT 97
[2024-01-02 09:17] VITALS: BP 124/72; PULSE 65; TEMP 36.7; O2SAT 96
--- NOTE | 2024-01-02 09:17 | PC.NURSE ---
0900 Arrival ambulatory. patient removed outer dressing from epigastric area prior to showering. old packing removed, noted mucopurulent drainage on old packing approx 6-8 inches removed. irrigated wound with normal saline, cleansed skin surrounding wound with soap and water, dried, skin prep applied, surrounding skin clear. wound measures approx 1.5 cm deep x 0.5 cm wide. repacked with 1/4 in iodiform gauze, covered with 4x4, secured with cloth tape. 0915 Released ambulatory.
[2024-01-03 14:29] VITALS: BP 117/64; PULSE 67; TEMP 36.4; O2SAT 99
--- NOTE | 2024-01-03 14:31 | PC.NURSE ---
1400 Arrival ambulatory. patient removed outer dressing from epigastric area prior to showering. old packing removed, noted mucopurulent drainage on old packing approx 6-8 inches removed. irrigated wound with normal saline, cleansed skin surrounding wound with soap and water, dried, skin prep applied, surrounding skin clear. wound measures approx 1.5 cm deep x 0.5 cm wide. repacked with 1/4 in iodiform gauze, covered with 4x4, secured with cloth tape.1415 Released ambulatory.
[2024-01-04 14:35] VITALS: BP 124/74; PULSE 68; TEMP 36.6; O2SAT 98
--- NOTE | 2024-01-04 14:37 | PC.NURSE ---
1400 Arrival ambulatory. patient removed outer dressing from epigastric area prior to showering. old packing removed, noted mucopurulent drainage on old packing approx 6-8 inches removed. irrigated wound with normal saline, cleansed skin surrounding wound with soap and water, dried, skin prep applied, surrounding skin clear. wound measures approx 1.5 cm deep x 0.5 cm wide. repacked with 1/4 in iodiform gauze, covered with 4x4, secured with cloth tape.1418 Released ambulatory.
[2024-01-05 12:03] VITALS: BP 126/62; PULSE 63; TEMP 36.4; O2SAT 96
--- NOTE | 2024-01-06 13:14 | PC.NURSE ---
1225 Arrival ambulatory. patient removed old dressing at home prior to shower. noted mucopurulent exudate at opening of wound (epigastric area) irrigated with NS, surrounding skin cleansed with soap and water, dried. skin prep applied. wound beefy red, approx 1cm deep, approx .5 cm wide, packed with approx 2 inches of 1/4 inch iodaform gauze, covered with 4x4 and covered with 4x4. secured with tape. released ambulatory
--- NOTE | 2024-01-07 16:15 | PC.NURSE ---
Arrived ambulatory. Removed patients dressing and wound packing. Serous and purulent drainage noted on the packing. Wound bed appearance noted to be beefy red. Inspector Returned [employer] irrigated wound with NS. Surrounding skin cleansed with soap and water then area dried. Skin prep applied. Wound then packed with iodoform gauze, covered with 4x4 and ABD dressing. Secured then with tape. Patient ambulated out.
[2024-01-09 14:17] VITALS: BP 103/58; PULSE 70; TEMP 36.8; O2SAT 98
--- NOTE | 2024-01-09 14:20 | PC.NURSE ---
1400 Arrival ambulatory. patient removed old dressing at home prior to shower. noted mucopurulent exudate at opening of wound (epigastric area) irrigated with NS, surrounding skin cleansed with soap and water, dried. skin prep applied. wound beefy red, approx 1cm deep, approx .5 cm wide, packed with approx 3 inches of 1/4 inch iodoform gauze, covered with 4x4 and covered with 4x4. secured with tape. released ambulatory
[2024-01-10 15:17] VITALS: BP 134/76; PULSE 72; TEMP 36.9; O2SAT 97
--- NOTE | 2024-01-10 15:18 | PC.NURSE ---
1355 Arrival ambulatory. old dressing removed. noted mucopurulent exudate at opening of wound (epigastric area) irrigated with NS, surrounding skin cleansed with soap and water, dried. skin prep applied. wound beefy red, approx 1cm deep, approx .5 cm wide, packed with approx 3 inches of 1/4 inch iodoform gauze, covered with 4x4 and covered with 4x4. secured with tape. released ambulatory
--- NOTE | 2024-01-11 12:20 | PC.NURSE ---
1205: Pt. to [facility] amb. for daily dressing change. Dressing to abdomen removed. No drainage observed. 5 of packing removed. Noted to have small amount purulent drainage. No active bleeding or drainage observed. Site washed with soap and water. Wound flushed with saline. Packed with approximately 5 of 1/4 Iodoform packing strip. Covered with folded 4x4 and secured with cloth tape. Area around wound red and irritated from chronic bandage application. Pt. states putting Desitin ointment on area. Pt. tolerated without c/o. 1215: Pt. d/c'd amb. to home
--- NOTE | 2024-01-13 14:36 | PC.NURSE ---
1405: Pt. to [facility] amb. for dressing change. Pt. relays today is her last day to come in and requests to do it herself at home. Old dressing and packing removed. Packing with small amount purulent drainage noted. Site washed with soap and water. Wound flushed with saline. Depth of wound 1.5cm, length 1/2cm. Instructed pt. how to pack wound, pt. demonstrates understanding. Wound packed and covered with sterile folded 4x4,secured with large bandaid. Pt tolerated without c/o. Supplies given to pt. Instructed to call or come back to dept. if concerns or questions. Relays understanding. 1425: Pt. d/c'd amb. to home.
== END 2024-01-20 23:59 | disposition home or self-care (01) ==
LOC: INF 07:32
PROVIDERS: PCP Family Medicine; Visit Provider Family Medicine
DX: L02.211 Cutaneous abscess of abdominal wall (principal)
CPT/HCPCS: 36592

== ENCOUNTER 2024-02-03 15:11 | Outpatient (REF) | payer MEDICARE, SELFPAY ==
[2024-02-04 16:56] LABS: C. Difficile PCR POSITIVE (NEGATIVE)
== END 2024-02-03 15:12 | disposition home or self-care (01) ==
LOC: LAB 15:11
PROVIDERS: PCP Family Medicine; Visit Provider Nurse Practitioner Family
DX: R19.5 Other fecal abnormalities (principal)
CPT/HCPCS: 87045; 87046; 87427; 87493

== ENCOUNTER 2024-02-15 07:53 | Outpatient (OUT) | payer MEDICARE, SELFPAY ==
--- NOTE | 2024-02-15 | CT_ITS ---
[address] [address] Patient Name: DIVYA ARRIAGA MRN: [id number] date: 1950 Sex: F Assigned Patient Location: CT Current Patient Location: CT Accession/Order Number: [id number] Exam Date: 02/15/2024 09:38 Report Date: 02/15/2024 10:50 At the request of: ALISSA GU Procedure: CT abdomen pelvis wo con EXAMINATION: CT abdomen pelvis wo con HISTORY: RLQ abdominal pain COMPARISON: 11/28/2023 TECHNIQUE: Axial, Coronal, and Sagittal images were created without IV contrast. Dose reduction techniques were achieved by using automated exposure control and/or adjustment of mA and/or kV according to patient size and/or use of iterative reconstruction technique. FINDINGS: LUNG BASES: Mild scattered atelectasis LIVER: No enlargement, atrophy, abnormal density, or significant focal lesion. BILIARY: No dilatation or calcification. PANCREAS: No lesion, fluid collection, ductal dilatation, or atrophy. SPLEEN: No enlargement or focal lesion. ADRENALS: No mass or enlargement. KIDNEYS: No mass, obstruction, or calcification. BOWEL/MESENTERY: Mild colonic diverticulosis without evidence of acute diverticulitis. Nonobstructive bowel gas pattern. The appendix is not definitively visualized AORTA/VASCULAR: No aortic aneurysm. Mild calcific atherosclerosis RETROPERITONEUM: No mass or adenopathy. LYMPH NODES: No adenopathy. URINARY BLADDER: No visible focal wall thickening, lesion, or calculus. PELVIC ORGANS: No visible mass. Pelvic organs appropriate for patient age. ABDOMINAL WALL: Ventral fascia laxity with extension of mesenteric fat anteriorly measuring 3.7 cm transverse axial image 28, this corresponds to the patient's palpable abnormality demarcated with a BB marker on image #23 BONES: No bony lesion or fracture. 8 mm anterolisthesis of L5 on S1. Mild to moderate degenerative changes OTHER: Negative. CT/CT abdomen pelvis wo con IMPRESSION: Nonvisualization of the appendix. No acute intraperitoneal abnormality. Ventral 3.7 cm fascia laxity/hernia containing fat without strangulation Electronically authenticated by: JAXON OROZCO Date: 02/15/2024 10:50
--- OUTSIDE RECORDS SUMMARY | 2024-02-15 07:56 | XMS_ITS | CCD ---
Author Organization [facility] CliniSynd Care Team Providers Care Leach Tank Tender Name Role Phone DR SANTIAGO CONNOLLY Attending Unavailable DR SANTIAGO CONNOLLY Admitting Unavailable PANKAJ BLOCK Consulting Unavailable SUSANNAH HOUSE Consulting Unavailable Juana Acharya MD Primary Care Provider Mimi UPSCALE SECURITY OFFICER, Shantell Orozco Unavailable MD Abby Varela Attending Provider [phone] MD Gopi Camara Primary Care Provider [phone] MD Jimmy White Attending Provider Jimmy White Admitting Unavailable Jimmy White Attending Unavailable Gopi Camara Primary Care Unavailable Abby Varela Admitting Unavailable Abby Varela Attending Unavailable Gopi Camara Primary Care Unavailable SHANTELL LE Attending Unavailab SHAYLA Soni Attending Unavailable LESHANTELL Referring Unavailab le LE, SHANTELL Orozco Referring Unavailab le LESHANTELL Lennon Attending Unavailab ROXANNA Fitzgerald Attending Unavailable LESHANTELL Referring Unavailab SHAYLA Soni Attending Unavailable LESHANTELL Referring Unavailab SHAYLA Soni Attending Unavailable LESHANTELL Referring Unavailab VERONICA Herrera Attending Unavailable LE, SHANTELL Orozco Referring Unavailab PAVAN Brandon Attending Unavailable SHAYLA GOLDMAN Attending Unavailable LESHANTELL Referring Unavailab KORINA Gavin Attending Unavailable LENNY GARCIA Attending Unavailab le MELTON, CHERRY W Attending Unavailable Allergies Allergy Classification Reported Allergen(s) Allergy Type Date of Onset Reaction(s) Facility (1 source) Sulfonamides (Antibiotic) Drug allergy (disorder) [facility] Repository (9 sources) Iodine Drug Allergy 9 Hives, Shortness of breath [facility] Healthcare (11 sources) Latex Propensity to adverse reactions 9 Rash [facility] (9 sources) Sulfonamides (Antibiotic) Drug Intolerance 9 Hives [facility] (11 sources) Iodinated Contrast Media Drug Allergy 1 Unknown [facility] (3 sources) Sulfonamides (Antibiotic); Translations: [Sulfa (Sulfonamide Antibiotics)] Allergy to substance 4 [facility] (3 sources) Gadolinium-Conta ining Contrast Medi; Translations: [Gadolinium-Cont aining Contrast Medi] Allergy to substance 4 [facility] (1 source) Latex Drug allergy (disorder) 4 [facility] Repository (1 source) Iodinated Contrast Media Drug allergy (disorder) 4 [facility] Repository Medications Current Medications Medication [...] Start: 08-31-2023 take 1 capsule by mo [facility] in the morning DULoxetine (Cymbalta) 30 [...] 1 tablet by mouth in the mo [facility] meloxicam (Mobic) 15 MG tablet Take 1 tablet by mouth in the morning. 0 Active Multiple Vitamins-Minerals (Multi For Her 50+) tablet (9 sources) Multiple Vitamins-Minerals (Multi For Her 50+) tablet as directed Orally 0 Active Tg-Gdt-Dikzy-Calcium Carb-K1 (One Daily Women 50 Plus(Vit K)) 400 mcg-500 mg calcium-20 mcg tablet (1 source) Start: take 1 tablet by mouth once Rf-Bxi-Wkykw-Calcium Carb-K1 (One Daily Women 50 Plus(Vit K)) [...] 01-19-2023 Chronic Other aftercare (1 source) Other supervisor intermediates (current) drug therapy; Translations: [OTH SAFETY PHYSICIAN CURRENT DRUG THERAPY] Onset: 1 Episodic Other [...] aPTT Coag (PPP) [Time] 28.2 s 25.1-36.5 [facility] Comment on above: A hematocrit value g reater than 55% may lead to inaccurate results in coagulation testing. Patients having hematocrit values >55% require a special collection tube for coagulation studies. Please contact the laboratory at [phone] for redraw instructions. Coagulation Profileon 2023 aPTT Coag (Bld) [Time] 28.2 s Normal 25.1-36.5 [facility] Comment on above: Order Comment: STAT FOR US BX Result Comment: A he matocrit value greater than 55% may lead to inaccurate results in coagulation testing. Patients having hematocrit values >55% require a special collection tube for coagulation studies. Please contact the laboratory at [phone] for redraw instructions. PERFORMED BY: [address] [address] PATHOLOGIST DIRECTOR MEDICAL SURGICAL DOROTEO BANKS M.D. Performed By: #### P LT, PP #### [facility] [address] [place] [address] [facility] INR Coag (PPP) [Relative time] 1.6 {INR} Normal [facility] Comment on above: Order Comment: [...] Performed By: #### P LT, PP #### [facility] [address] [place] [id number] [place] PT Coag (PPP) [Time] 17.9 s High 9.0-12.9 [facility] Comment on above: Order Comment: STAT FOR US BX Result Comment: A he matocrit value greater than 55% may lead to inaccurate results in coagulation testing. Patients having hematocrit values >55% require a special collection tube for coagulation studies. Please contact the laboratory at [phone] for redraw instructions. Performed By: #### P LT, PP #### [facility] [address] [place] [address] [place] INR in Platelet poor plasma by Coagulation assayOrdered By: Abby Varela on 11-11-2023 INR Coag (PPP) [Relative time] 1.6 {INR} [facility] Comment on above: INR Therapeutic [...] 3 - 4.5 Jet 11-11-2023 L Specimen: [id number] Received: 11/11/23 Status: KAYCE Alvarez Num: [id number] Spec Type: Surgical Subm Dr: Yamil Cano DO Tissues: A Liver - Needle Biopsy (LT LIVER LOBE) Procedures: PAS - LGRN, MART 1/MARCEL A, HE/2, Gross/Micro L5, GMS II Dark, AE1-AE3, CD68, CK20, CK 7, SOX-10, DIFF QWIK/2 Age/ Patient Sex Location Account Attending Physician Twila Ceballos 73/F [id number] Abby Varela MD SPEC NUM: [id number] RECD: 11/11/23 STATUS: KAYCE FELTON NUM: [id number] TERESA: 11/11/[address]: Yamil Cano DO ENTERED: 11/11/[address] [facility] DR: SPEC TYPE: Surgical DEPT: S ORDERED: [...] submitted in one cassette labeled A1. Specimen: [id number] Received: 11/11/23 Status: KAYCE Felton Num: [id number] Spec Type: Surgical Subm Dr: Yamil Cano DO Tissues: A Liver - Needle Biopsy (LT LIVER LOBE) Procedures: PAS - LGRN, MART 1/MARCEL A, HE/2, Gross/Micro L5, GMS II Dark, AE1-AE3, CD68, CK20, CK 7, SOX-10, DIFF QWIK/2 Patient: Twila Ceballos [id number] (Continued) Specimen: [id number] Received: 11/11/23 (Continued) Signed (signature on file) Dayday Ford MD 11/15/23 702 Specimen: [id number] Received: 11/11/23 Status: KAYCE Felton Num: [id number] Spec Type: Surgical Subm Dr: Yamil Cano DO Tissues: A Liver - Needle Biopsy (LT LIVER LOBE) Procedures: PAS - LGRN, MART 1/MARCEL A, HE/2, Gross/Micro L5, GMS II Dark, AE1-AE3, CD68, CK20, CK 7, SOX-10, DIFF QWIK/2 Patient: Twila Ceballos [id number] (Continued) Specimen: [id number] Received: 11/11/23 (Continued) Intraoperative Diagnosis A. Liver biopsy (left liver lobe per requisition): - Neutrophilic inflammation. No malignant cells seen. Portion of specimen sent for cultures. Reported by Dr. Grullon 11/11/2023 at 11:55 AM CPT Codes 53926, 86202 Specimen: [id number] Received: 11/11/23-1257 Status: KAYCE Felton Num: [id number] Spec Type: Surgical Subm Dr: Yamil Cano DO Tissues: A Liver - Needle Biopsy (LT LIVER LOBE) Procedures: PAS - LGRN, MART 1/MARCEL A, HE/2, Gross/Micro L5, GMS II Dark, AE1-AE3, CD68, CK20, CK 7, SOX-10, DIFF QWIK/2 Patient: Twila Ceballos [id number] (Continued) Signed (signature on file) Dayday Ford MD 11/15/23 163 Normal [facility] No Panel InformationOrdered By: Gopi Camara on 11-11-2023 Mycobacterium Identification N/A [facility] Mycology Susceptibility N/A [facility] Platelet Counton 11-11-2023 Platelets (Bld) [#/Vol] 675 10*3/uL High 150-450 [facility] Comment on above: Order Comment: STAT FOR US BX Result Comment: PERF ORMED BY: [place] [address] PATHOLOGIST DIRECTOR MEDICAL SURGICAL DOROTEO BANKS M.D. Performed By: #### P LT, PP #### [place] [address] [place] Platelets Auto (Bld) [#/Vol] Ordered By: Abby Varela on 11-11-2023 Platelets (Bld) [#/Vol] 675 10*3/uL 150-450 [facility] Prothrombin time (PT)Ordered By: Abby Varela on 11-11-2023 PT Coag (PPP) [Time] 17.9 s 9.0-12.9 [facility] Comment on above: A hematocrit value g reater than 55% may lead to inaccurate results in coagulation testing. Patients having hematocrit values >55% require a special collection tube for coagulation studies. Please contact the laboratory at [phone] for redraw instructions. US needle biopsyon US needle biopsy [facility] [place] [address] Ultrasound Report Signed Patient: Twila Ceballos MR#: [id number] : 1950 Acct:[id number] Age/Sex: 73 / F ADM Date: 11/11/23 Loc: Room: Type: [facility] Attending Dr: Abby Varela MD Ordering Provider: [...] Yamil Cano M.D.11/11/2023 3:15 PM Dictation Location: [place] [address] Tech: Hansa Azar Transcribed By: [facility] 11/11/23 151 Dictated By: Yamil Cano DO 11/11/23 151 Signed By: 11/11/23 151 [facility] No Panel Informationon 10-04 Pavan Buckner NP 10/04/2023 1:23 PM L Inj/Asp: R knee on 10/04/2023 1:22 PM Indications: pain Medications: 40 mg methylPREDNISolone acetate 40 MG/ML Procedure, treatment alternatives, risks and benefits explained, specific risks discussed. Consent was given by the patient. [employer] [facility] [employer] CT HEAD WO IV CONTRASTon CT HEAD [...] Available XR KNEE RT 4V or >on 10-28-2 021 XR KNEE RT 4V or > EXAMINATION: [...] by: SUSANNAH HOUSE Date: 2021-06-18 20:29 Normal [facility] Vital Signs Date Time Vital Sign Value Performing Clinician Sergioi rachele 11-14-2023 12:52-0400 Diastolic blood pressure 73 mm[Hg] MD Gopi Camara Work Phone: [facility] 11-14-2023 12:52-0400 Heart rate 65 /min MD Gopi Camara Work Phone: [facility] 11-14-2023 12:52-0400 Respiratory rate 16 /min MD Gopi Camara Work Phone: [facility] 11-14-2023 12:52-0400 SaO2% (BldA) [Mass fraction] 94 % MD Gopi Camara Work Phone: [facility] 11-14-2023 12:52-0400 Systolic blood pressure 112 mm[Hg] MD Gopi Camara Work Phone: [facility] 11-14-2023 10:55-0400 Body height 165.1 cm MD Gopi Camara Work Phone: [facility] 11-14-2023 10:55-0400 Body temperature 98 [degF] MD Gopi Camara Work Phone: [facility] 11-14-2023 10:55-0400 Body weight 67.13 kg MD Gopi Camara Work Phone: [facility] 11-11-2023 12:55-0400 Diastolic blood pressure 60 mm[Hg] MD Gopi Camara Work Phone: [facility] 11-11-2023 12:55-0400 Heart rate 80 /min MD Gopi Camara Work Phone: [facility] 11-11-2023 12:55-0400 Respiratory rate 18 /min MD Gopi Camara Work Phone: [facility] 11-11-2023 12:55-0400 SaO2% (BldA) [Mass fraction] 94 % MD Gopi Camara Work Phone: [facility] 11-11-2023 12:55-0400 Systolic blood pressure 114 mm[Hg] MD Gopi Camara Work Phone: [facility] 11-11-2023 10:34-0400 Body height 165.1 cm MD Gopi Camara Work Phone: [facility] 11-11-2023 10:34-0400 Body weight 65.77 kg MD Gopi Camara Work Phone: [facility] Encounters Encounter Date Encounter Type Care Provider Facility Start: 01-10-2024 End: 01-10-2024 ambulatory CHERRY MELTON Not Available Start: 11-14-2023 Non-patient / Non-visit MD Emilio Camara Work Phone: [facility] Work Phone: Start: 11-14-2023 End: 11-14-2023 ambulatory Jimmy White Facility:[facility] Start: 11-14-2023 End: 11-14-2023 Admission to same day surgery center MD Gopi Camara Work Phone: [facility] Work Phone: Start: 11-14-2023 End: 11-14-2023 ambulatory MD Gopi Camara Work Phone: [facility] Work Phone: Start: 11-11-2023 End: 11-11-2023 ambulatory Abby Nichole Facility:[facility] Start: 11-11-2023 End: 11-11-2023 Admission to same day surgery center MD Gopi Camara Work Phone: [facility] [place] Work Phone: Start: 11-11-2023 End: 11-11-2023 ambulatory MD Gopi Camara Work Phone: [facility] Work Phone: Start: 10-24-2023 End: 10-24-2023 ambulatory LENNY GARCIA Not Available Start: 10-10-2023 End: 10-10-2023 ambulatory KORINA OKEEFE Not Available Start: 10-06-2023 End: 10-06-2023 ambulatory SHAYLA GOLDMAN Not Available Start: 10-06-2023 Bamboo flowsheet Shayla stewart PT Work Phone: [facility] Start: 10-06-2023 Bamboo flowsheet Shayla stewart PT Work Phone: [facility] Start: 10-04-2023 End: 10-05-2023 ambulatory VERONICA DENNIS Not Available Start: 10-04-2023 Bamboo flowsheet Veronicamani Branham PT A [facility] Start: 10-04-2023 Bamboo flowsheet Veronicamani Branham PT A [facility] Start: 10-04-2023 End: 10-04-2023 Office outpatient visit 25 minutes Pavan Buckner UPSCALE SECURITY OFFICER Work Phone: [facility] Comment on above: Primary osteoarthrit is of right knee (Primary Dx); Chronic pain of right knee Start: 10-04-2023 End: 10-04-2023 Treatment Veronica Branham TOP LIFT TRIMMER [facility] Comment on above: Balance [...] CI PT Start: 09-27-2023 Bamboo flowsheet Shayla de la pazton PT Work Phone: [facility] Start: [...] aspir&/inj major jt/bursa w/o Pavan T Sita UPSCALE SECURITY OFFICER Work Phone: Start: 05-30-2023 Mammography Shayla Goldman PT Work Phone: Plan of Treatment Date Care Activity Detail Author Start: 06-21-2024 Medicare Annual Wellness (AWV) Medicare Annual Wellness (AWV) [facility] Start: 05-30-2024 Screening for malignant neoplasm of breast Mammogram [facility] Start: 05-12-2024 Screening for malignant neoplasm of colon [facility] Start: 11-14-2023 [facility] Start: 11-11-2023 Microscopic observation [Identifier] in Unspecified specimen by Gram stain Gram Stain [facility] Start: 11-11-2023 End: 11-11-2023 [facility] Start: 11-11-2023 Ultrasonic guidance for needle biopsy [facility] Start: 10-20-2023 End: 10-20-2023 ambulatory 10/20/2023 11:00 AM EST Treatment [facility] [address] [place] [address] Shayla Goldman, PT [address] [place] [address] [facility] Start: 10-18-2023 End: 10-18-2023 ambulatory 10/18/2023 10:30 AM EST Treatment [facility] [address] [place] [address] Shayla Goldman, PT [address] [place] [address] [facility] Start: 10-17-2023 End: 10-17-2023 ambulatory 10/17/2023 10:00 AM EST Treatment [facility] [address] [place] [address] Shayla Goldman, PT [address] [place] [address] [facility] Start: 10-13-2023 End: 10-13-2023 ambulatory 10/13/2023 11:00 AM EST Treatment [facility] [address] [place] [address] Shayla Goldman, PT [address] [place] [address] [facility] Start: 10-11-2023 End: 10-11-2023 Patient encounter procedure 10/11/2023 3:15 PM EST Office Visit [facility] [address] [place] [id number] Cherry Melton, DPM [address] [place] [address] [facility] Start: 10-11-2023 End: 10-11-2023 ambulatory 10/11/2023 10:30 AM EST Treatment [facility] [address] [facility] [address] [place] [address] Shayla Goldman, PT [address] [email or web address] [address] [place] [address] [facility] Start: 10-10-2023 End: 10-10-2023 Social Work 10/10/2023 1:00 PM EST Social Work [facility] [address] [place] [facility] [place] [address] Korina Okeefe, PALMER-Uriel [address] [facility] [place] [address] [facility] Start: 10-06-2023 End: 10-06-2023 ambulatory [facility] Start: 10-04-2023 End: 10-04-2023 Patient encounter procedure 10/04/2023 1:00 PM EST Office Visit [facility] [address] [facility] [address] [place] [address] Pavan Buckner, UPSCALE SECURITY OFFICER [address] [place] [address] [facility] Start: 10-04-2023 End: 10-04-2023 ambulatory [facility] Start: 09-29-2023 End: 09-29-2023 ambulatory 09/29/2023 4:30 PM EST Treatment [facility] [address] [facility] [address] [place] [address] Shayla Goldman, PT [address] [facility] [[email or web address] [address] [place] [address] [facility] Start: 09-27-2023 End: 09-27-2023 ambulatory 09/27/2023 8:30 AM EST Treatment [facility] [address] [facility] [address] [place] [address] Shayla Goldman, PT [address] [facility] [[email or web address] [address] [place] [address] [facility] Start: 1950 Screening for malignant neoplasm of colon [facility] Fungus identified in Unspecified specimen by Culture [facility] Microscopic observat ion [Identifier] in Unspecified specimen by Smear [facility] Mycobacterium sp identified in Unspecified specimen by Organism specific culture [facility] Patient Education [facility] Live r Biopsy Discharge Instructions [facility] Work Phone: Immunizations Immunization Date Immunization Notes Care Provider Fa margarita 06-18-2023 tetanus toxoid, redu jay diphtheria toxoid, and acellular pertussis vaccine, adsorbed Shayla Goldman PT Work Phone: [facility] Work Phone: 04-28-2023 Influenza, Seasonal, Quadrivalent, Adjuvanted Shayla Goldman PT Work Phone: [facility] 04-28-2023 Pneumococcal Conjuga te PCV 20 Shayla Goldman PT Work Phone: [facility] 04-28-2023 RSV, recombinant, protein subunit RSVpreF, adjuvant reconstitu, 120mcg/0.5mL, PF (Arexvy) Shayla Goldman PT Work Phone: [facility] 05-14-2022 Influenza, Seasonal, Quadrivalent, Adjuvanted Shayla Goldman PT Work Phone: [facility] 05-06-2022 Moderna Bivalent Tello ster Vaccination Shayla Goldman PT Work Phone: [facility] 05-06-2022 Moderna SARS-CoV-2 50mcg/0.5mL Booster Shayla Goldman PT Work Phone: [facility] 04-16-2021 Influenza, High-dose Seasonal, Quadrivalent, Preservative Free Shayla Goldman PT Work Phone: [facility] 04-29-2020 influenza, injectabl e, quadrivalent, preservative free Shayla Goldman PT Work Phone: [facility] 05-04-2019 Seasonal trivalent influenza vaccine, adjuvanted, preservative free Shayla Goldman PT Work Phone: [facility] 05-10-2018 zoster vaccine recombinant Shayla Goldman PT Work Phone: [facility] 04-14-2018 influenza, seasonal, injectable, preservative free Shayla Goldman PT Work Phone: [facility] 04-13-2018 influenza virus vacc ine, split virus (incl. purified surface antigen) Shayla Goldman PT Work Phone: [facility] 04-11-2018 influenza, injectabl e, quadrivalent, preservative free Shayla Goldman PT Work Phone: [facility] 12-21-2017 zoster vaccine recombinant Shayla Goldman PT Work Phone: [facility] 05-23-2017 influenza, injectabl e, quadrivalent, preservative free Shayla Goldman PT Work Phone: [facility] 05-23-2017 pneumococcal polysaccharide vaccine, 23 valent Shayla Goldman PT Work Phone: [facility] 06-02-2016 influenza, injectabl e, quadrivalent, preservative free Shayla Goldman PT Work Phone: [facility] 06-02-2016 pneumococcal conjuga te vaccine, 13 valent Shayla Goldman PT Work Phone: [facility] 05-28-2015 influenza, injectabl e, quadrivalent, preservative free Shayla Goldman PT Work Phone: [facility] 05-28-2015 pneumococcal conjuga te vaccine, 13 valent Shayla Goldman PT Work Phone: [facility] 05-22-2015 seasonal influenza, intradermal, preservative free Shayla Goldman PT Work Phone: [facility] 05-22-2014 pneumococcal polysaccharide vaccine, 23 valent Shayla Goldman PT Work Phone: [facility] 12-25-2012 tetanus toxoid, redu jay diphtheria toxoid, and acellular pertussis vaccine, adsorbed Shayla Goldman PT Work Phone: [facility] 10-13-2009 novel influenza-H1N1 -09, preservative-free, injectable Shayla Goldman PT Work Phone: [facility] Payers Date Payer Category Payer Self-pay 2022 Unknown AARP AARP [id number] 2022-Present [address] [place] [address] [id number] 2022 Unknown [id number] 2017 Medicare MEDICARE MEDICAR E PART B [id number] 2017-[place] [address] Medicare [id number] 2017 Medicare [id number] 1959 Medicare [id number] 1950 Unknown [id number] [id number] 1950 Unknown [id number] 2.16.840.1.146630.3.579.2.9 1950 Unknown [id number] 2.16.840.1.589484.3.579.2.1259 1952 Unknown [id number] 2.16.840.1.931102.3.579.2.1259 1950 Unknown [id number] 2.16.840.1.165066.3.579.2.9 1952 Unknown [id number] 2.16.840.1.734245.3.579.2.1259 1952 Unknown [id number] 2.16.840.1.797308.3.579.2.1259 1952 Unknown [id number] 2.16.840.1.379863.3.579.2.1259 1950 Unknown [id number] 2.16.840.1.125318.3.579.2.1259 1950 Unknown [id number] 2.16.840.1.566101.3.579.2.1259 1950 Unknown [id number] 2.16.840.1.721940.3.579.2.125 1950 Unknown [id number] 2.16.840.1.389846.3.579.2.1259 1952 Unknown [id number] 2.16.840.1.843340.3.579.2.1259 1950 Unknown [id number] 2.16.840.1.867079.3.579.2.1259 Unknown [id number] 2.16.840.1.811308.3.579.2.531 Unknown [id number] 2.16.840.1.160521.3.579.2.531 Social History Date Type Detail Facility Start: 01-19-2023 Tobacco smoking stat [facility] Never smoked tobacco [facility] Start: [...] to any clubs or organizations such as sikhism groups, unions, fraternal or athletic groups, or [...] got money to buy more. Never true [facility] Start: 04-05-2023 Alcohol Comment caffeine: none [facility] Start: 1950 Sex Assigned At Not on file [facility] Start: 1950 Sex Assigned At Female [facility] Goals Date Patient Goal Desired Activity /State Procedure note 11-14-2023 Note Date & Type Note Facility 11-14-2023 Procedure note [facility] History of Present illness Narrative 10-04-2023 Pavan Buckner NP - 10/04/2023 1:00 PM EST Note [...] AGO. MDP 02/2022, 02/2023 PHYSICAL THERAPY @ [facility] DID NOT TAKE MDP 02/2023 CURRENTLY DOING PT AT [facility], SOME RELIEF. SORENESS MEDIAL AND LATERAL. TAKING [...] symptoms develop for requiring urgent evaluation. Pavan Buckner JEWELRY SALES ASSOCIATE-THROUGH FREIGHT ENGINEER documented in this encounter [facility] History [...] Physician Signature: Date: documented in this encounter [facility] Evaluation note Note Date & Type Note Facility Evaluation note Diagnosis Balance disorder- Primary Arthritis of right knee documented in this encounter [facility] Evaluation note Note Date & Type Note Facility Evaluation note Diagnosis Primary osteoarthritis of right knee- Primary Chronic pain of right knee documented in this encounter [facility] Evaluation note Note Date & Type Note Facility Evaluation note Diagnosis Balance disorder- Primary Arthritis of right knee documented in this encounter [facility] Evaluation note Note Date & Type Note Facility Evaluation note No assessment information availa [facility] Work Phone: History and physical note Note Date & Type Note Facility History and physical note Note Date/Time November 14, 2023 12:24pm [facility] [address] [place] [address] Gastroenterology H&P Signed Patient: Twila Ceballos MR#: [id number] : 1950 Acct:[id number] Age/Sex: 73 / F Adm Date: 4 Loc: Room: Type: [facility] Attending Dr: Jimmy White MD Copies [...] signed by Jimmy White MD> 11/14/23 1224 [facility] Work Phone: Summary Purpose Family History No Family History Records Found Relationship Condition Age at Onset Recorded Date/T tegan Not Specified High blood cholesterol Unknown Heart disease Unknown sister Malignant neoplasm Unknown father Malignant neoplasm Unknown Not Specified Malignant neoplasm of esophagus Unknown Advance Directives No Advanced Directives Records Found Advance Directive Response Recorded Date/ Time Advance Directives No November 09 024 9:44am Reason for Referral Specialty Diagnoses / Procedures Referred By Contac t Referred To Contact Orthopaedic Surgery Diagnoses Primary osteoarthritis of right knee Procedures L Inj/Asp: R knee Pavan Buckner, [employer] [address] [place] [address] Referral ID Status Reason Start Date Expiration Date V isits Requested Visits Authorized [id number] Pending Review 10/04/2023 04/01/2024 1 1 Chief Complaint and Reason for Visit Chief Complaint liver mass Chief Complaint liver mass elevated white blood cells, anemia, liver mass. elevated white blood cells, anemia, liver mass. Additional Source Comments INFORMATION SOURCE (unrecogn ized section and content) DATE CREATED AUTHOR 06/24/2021 [facility] DATE CREATED AUTHOR AUTHOR'S ORGANIZ ATION 11/24/2023 [facility] DATE CREATED AUTHOR AUTHOR'S ORGANIZ ATION 01/12/2024 [facility] Care Teams (unrecognized sec tion and content) [employer] Relationship Specialty Start Date End Date Juana Acharya MD [address] [place] [address] PCP - General Family Medicine 08/31/23 Shantell Le NP [address] [place] [address] Nurse Practitioner Family Medicine 08/31/23 [employer] Relationship Specialty Start Date End Date Juana Acharya MD [address] [facility] [place] [address] PCP - General Family Medicine 08/31/23 Shantell Le NP [address] [facility] [place] [address] Nurse Practitioner Family Medicine 08/31/23 [employer] T[employer] Relationship Specialty Start Date End Date Juana Acharya MD [address] [facility] [place] [address] PCP - General Family Medicine 08/31/23 Shantell Le NP [address] [place] [address] Nurse Practitioner Family Medicine 08/31/23 [employer] T[employer] Relationship Specialty Start Date End Date Juana Acharya MD [address] [place] [address] PCP - General Family Medicine 08/31/23 Shantell Le NP [address] [place] [address] Nurse Practitioner Family Medicine 08/31/23 [employer] Relationship Specialty Start Date End Date Juana Acharya MD [address] [place] [address] PCP - General Family Medicine 08/31/23 Shantell Le NP [address] [place] [address] Nurse Practitioner Family Medicine 08/31/23 [employer] T[employer] Relationship Specialty Start Date End Date Juana Acharya MD [address] [place] [address] PCP - General Family Medicine 08/31/23 Shantell Le NP [address] [place] [address] Nurse Practitioner Family Medicine 08/31/23 [employer] T[employer] Relationship Specialty Start Date End Date Juana Acharya MD [address] [place] [address] PCP - General Family Medicine 08/31/23 Shantell Le NP [address] [place] [address] Nurse Practitioner Family Medicine 08/31/23 Team Status: [...] Balance disorder Arthritis of right knee Procedures [place] OFFICE/OUTPATIENT [facility] HIGH MDM 60 MINUTES Shantell Le NP [address] [place] [address] Shayla Goldman, PT [address] [facility] [email or web address]] [address] [place] [address] Referral ID Status Reason Start Date Expiration Date Visits Requested Visits Authorized [id number] Authorized Specialty Services Required 08/31/2023 02/27/2024 30 [...] BE BASED ON THE PRIMARY CLINICAL RECORDS. [facility]. provides no warranty or guarantee of the accuracy or completeness of information in this document.
== END 2024-02-15 07:54 | disposition home or self-care (01) ==
LOC: CT 07:53
PROVIDERS: PCP Nurse Practitioner Family; Visit Provider Nurse Practitioner Family
DX: R10.31 Right lower quadrant pain (principal); K43.9 Ventral hernia without obstruction or gangrene
CPT/HCPCS: 74176

== ENCOUNTER 2024-03-19 14:29 | Outpatient (OUT) | payer MEDICARE, SELFPAY ==
--- NOTE | 2024-03-19 14:37 | PE_ITS ---
The [address] [address] Patient Name: DIVYA ARRIAGA MRN: [id number] date: 1950 Sex: F Assigned Patient Location: PETCT Current Patient Location: PETCT Accession/Order Number: [id number] Exam Date: 03/19/2024 16:20 Report Date: 03/21/2024 17:04 At the request of: AYESHA CAMPBELL Procedure: PET skull to mid thigh PET/CT: HISTORY: Skin cancer, liver mass. COMPARISON: CT abdomen and pelvis 02/15/2024. TECHNIQUE: The patient was injected with 12.35 mCi of F-18 fluorodeoxyglucose (FDG), and an emission scan was performed from the base of the skull to the mid thigh. Noncontrast CT was performed for attenuation correction and anatomic localization. The blood glucose level was 88 mg/dl. The uptake time was 52 minutes. FINDINGS: HEAD AND NECK: There is a physiologic distribution of activity, with no hypermetabolic foci. CHEST: The SUVmax of the mediastinum = 2.8 using the patient's body weight as the normalization method. There are multiple tracer avid mediastinal and bilateral hilar lymph nodes. [employer] lesions include a azygoesophageal recess node, image 109, SUV max 9.6 measuring 2 x 1 cm and a right paratracheal node on image 100, SUV max 6.6 measuring 0.9 x 1.2 cm. There are few hypermetabolic bilateral peribronchial lymph nodes also noted in the perihilar regions. There is linear parenchymal scarring in the right upper lobe with associated mild tracer activity. ABDOMEN AND PELVIS: There is a tracer avid left adrenal nodule or thickening, image 154 with SUV max 4.3 measuring 8 mm. This is probably stable compared to the CT from 10/26/2023. 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 The previously noted lesion in the left lobe of liver seen on CT from 10/26/2023 currently measures 1.3 cm, previously measuring 4.5 x 6.4 cm and this shows no significant increased activity compared to the hepatic background. A previously noted 1.7 cm hypodensity near the dome of the liver is not seen on the CT component also does not correspond to increased activity. MUSCULOSKELETAL SYSTEM: There is a physiologic distribution of activity within the bone marrow, with no hypermetabolic foci. ADDITIONAL CT FINDINGS: There is mild atherosclerotic calcification of the abdominal aorta. There are multiple diverticula in the descending and sigmoid colon. There is a moderate fat-containing subumbilical ventral hernia. PET/PET skull to mid thigh IMPRESSION: 1. Multiple hypermetabolic mediastinal and bilateral hilar and peribronchial lymph nodes. Differential diagnosis includes lymphoma, metastatic disease and a reactive/inflammatory process such as sarcoidosis. Recommend follow up CT with contrast in 3 months. Tissue sampling may be considered. 2. Previously liver lesions on the CT from 10/26/2023 are not FDG avid. The largest lesion in the left hepatic lobe is decreased in size and the smaller lesion at the hepatic dome is no longer visualized. 3. Hypermetabolic left adrenal nodule or thickening. This is favored to be due to hyperplasia or an adenoma. 4. Hypermetabolic focus in the pelvis between the rectum and sigmoid colon with evidence of a chronic fistula. This may be sequela of previous diverticulitis. Recommend CT abdomen and pelvis at time of follow up chest CT to assess for stability of this lesion as well the liver and left adrenal lesion. Electronically authenticated by: JAZMIN CALLE Date: 03/21/2024 17:04
== END 2024-03-19 14:30 | disposition home or self-care (01) ==
LOC: PETCT 14:30
PROVIDERS: PCP Family Medicine; Visit Provider Internal Medicine Hematology & Oncology
DX: D72.829 Elevated white blood cell count, unspecified (principal); D64.9 Anemia, unspecified; D49.0 Neoplasm of unspecified behavior of digestive system; C44.319 Basal cell carcinoma of skin of other parts of face
CPT/HCPCS: 78815; A9552

== ENCOUNTER 2024-03-29 08:36 | Outpatient (RCR) | payer MEDICARE, SELFPAY | END 2024-04-21 23:59 | disposition home or self-care (01) | LOC: HEMC 08:36 | PROVIDERS: PCP Nurse Practitioner Family; Visit Provider Internal Medicine Hematology & Oncology | DX: D72.829 Elevated white blood cell count, unspecified (principal); D64.9 Anemia, unspecified; D49.0 Neoplasm of unspecified behavior of digestive system; C44.319 Basal cell carcinoma of skin of other parts of face | CPT/HCPCS: G0463 ==

== ENCOUNTER 2024-09-03 14:47 | Outpatient (OUT) | payer MEDICARE, SELFPAY ==
--- OUTSIDE RECORDS SUMMARY | 2024-09-03 14:51 | XMS_ITS | CCD ---
Author Organization [facility] Inform ion [facility] Care Team Providers Care Sandstone Inspector Repairer Name Role Phone DR SANTIAGO CONNOLLY Attending Unavailable DR SANTIAGO CONNOLLY Admitting Unavailable PANKAJ BLOCK Consulting Unavailable SUSANNAH HOUSE Consulting Unavailable Juana Acharya MD Primary Care Provider Mimi TIE LAYER, Shantell Orozco Unavailable MD Abby Varela Attending Provider MD Gopi Camara Primary Care Provider MD Jimmy White Attending Provider Jimmy White Admitting Unavailable Jimmy White Attending Unavailable Gopi Camara Primary Care Unavailable Abby Varela Admitting Unavailable Abby Varela Attending Unavailable Gopi Camara Primary Care Unavailable ALISSA GU Primary Care Physician [phone] ALISSA GU Referring Unavailable Pankaj PUTNAM Attending Unavailable ALISSA GU Referring Unavailable Pankaj PUTNAM Attending Unavailable JUAN CARLOS, JEANNETTE Orozco Referring Unavailable JUAN CARLOS JEANNETTE A Primary Care Unavailable ALISSA GU Referring Unavailable JEANNETTE RANGEL Primary Care Unavailable Mimi TIE LAYER, Shantell Orozco Unavailable Unallocated , Noms Provider Primary Care Provi leyda SHANTELL LE Attending Unavailab SHAYLA Soni Attending Unavailable SHANTELL LE Referring Unavailab SHANTELL Perry Referring Unavailab le SHANTELL LE Attending Unavailab ROXANNA Fitzgerald Attending Unavailable SHANTELL LE Referring Unavailab SHAYLA Soni Attending Unavailable SHANTELL LE Referring Unavailab SHAYLA Soni Attending Unavailable SHANTELL LE Referring Unavailab ARMIN Herrera Attending Unavailable MIMI, SHANTELL Orozco Referring Unavailab PAVAN Brandon Attending Unavailable ESTELLE, SHAYLA Trammell Attending Unavailable SHANTELL LE Referring Unavailab KORINA Gavin Attending Unavailable LENNY GARCIA Attending Unavailab SILVIA Rock Attending Unavailable GERONIMO, SILVIA W Attending Unavailable Allergies Allergy Classification Reported Allergen(s) Allergy Type Date of Onset Reaction(s) Facility (1 source) Sulfonamides (Antibiotic) Drug allergy (disorder) [facility] Repository (13 sources) Iodine; Translations: [IODINE] Drug Allergy 9 Hives, Shortness of breath [facility] (17 sources) Latex; Translations: [Latex] Propensity to adverse reactions 9 Rash, Eruption of skin (disorder) [facility] (12 sources) Sulfonamides (Antibiotic) Drug Intolerance 9 [facility] (14 sources) Iodinated Contrast Media Drug Allergy 1 Unknown [facility] (4 sources) Sulfonamides (Antibiotic); Translations: [Sulfa (Sulfonamide Antibiotics)] Allergy to substance 9 [facility] (3 sources) Gadolinium-Conta ining Contrast Medi; Translations: [Gadolinium-Cont aining Contrast Medi] Allergy to substance 4 [facility] (1 source) Latex Drug allergy (disorder) 4 [facility] Repository (1 source) Iodinated Contrast Media Drug allergy (disorder) 4 [facility] Repository (2 sources) Sulfonamides (Antibiotic); Translations: [sulfa drugs] Drug allergy [facility] (1 source) Contrast Dye 1 Drug allergy [facility] Comment on above: IVP dye (1 source) Contrast media; Translations: [Contrast Dye] Propensity to adverse reactions (disorder) [facility] Repository Medications Current Medications Medication Drug Class(es) Dates Sig (Normalized) Sig (Original) 8 hr acetaminophen 650 mg extended release oral tablet (3 sources) take 1 tablet by mouth every eight hours as needed for pain acetaminophen (Tylenol 8 Hour) 650 MG ER tablet Take 650 mg by mouth every 8 (eight) hours if needed for mild pain Do not crush, chew, or split. Active amoxicillin 250 mg oral capsule (3 sources) Penicillin-class Antibacterial amoxicillin (Amoxil) 250 MG capsule Take 500 mg by mouth Active atorvastatin 20 mg oral tablet (13 sources) HMG-CoA Reductase Inhibitor Start: 11-11-2023 End: 11-14-2023 take 1 tablet by mouth once daily Atorvastatin (Lipitor) 20 mg tablet Active 20 MG PO Daily November 14, 2023 12:00am Start: 11-27-2014 take 1 tablet by sandra in the morning atorvastatin (Lipitor) 20 MG tablet Indications: Mixed hyperlipidemia (CMS/HCC) Take 1 tablet (20 mg) by mouth in the morning. 90 tablet 3 08/31/2023 Active diclofenac sodium 0.01 mg/mg topical gel (12 sources) Nonsteroidal Anti-inflammatory Drug diclofenac sodium (Voltaren) 1 % gel Transdermal Active dicyclomine hydrochloride 10 mg oral capsule (12 sources) Anticholinergic Start: 11-11-19 take 10 mg [...] before bedtime. 90 capsule 3 08/31/2023 Active Start: 11-27-2014 take 10 mg by mouth three times daily as needed for pain dicyclomine 10 mg, Oral, TID, PRN abdominal pain Start Date: 11/27/14 Status: Ordered DULoxetine 30 mg delayed release oral capsule (12 sources) Serotonin and Norepinephrine Reuptake Inhibitor Start: 11-11-2023 take 30 mg by mouth once daily Duloxetine Active 30 MG PO Daily November 11, 2023 12:00am Start: 08-31-2023 take 1 capsule by mo uth in the morning DULoxetine (Cymbalta) [address] capsule Indications: Recurrent major depressive disorder, in partial remission (HCC) (CMS/HCC) Take 1 capsule (30 mg) by mouth in the morning. 90 capsule 3 08/31/2023 Active Start: 11-27-2014 take 30 mg by mouth twice mimi y Cymbalta 30 mg, Oral, BID Start Date: 11/27/14 Status: Ordered meloxicam 15 mg oral tablet (15 sources) Nonsteroidal Anti-inflammatory Drug Start: 11-11-2023 take 1 tablet by mouth once daily meloxicam 15 mg Tab 15 mg = 1 tab(s), Oral, Daily, Refills(s) 0 Start Date: 03/07/24 Status: Ordered Multiple Vitamins Tab (1 source) Start: 12-11-2014 take 1 tablet by mouth once daily Multiple Vitamins Tab 1 tab(s), Oral, Daily, Refill(s) 0, Prophylaxis Start Date: 12/11/14 Status: Ordered Multiple Vitamins-Mineral s (Multi For Her 50+) tablet (12 sources) Multiple Vitamins-Minerals (Multi For Her 50+) tablet as directed Orally Active Multiple Vitamin s-Minerals (Multi For Her 50+) tablet as directed Orally 0 Active Su-Plf-Gsakm-Calcium Carb-K1 (One Daily Women 50 Plus(Vit K)) 400 mcg-500 mg calcium-20 mcg tablet (1 source) Start: 11-14-2023 take 1 tablet by mouth once Px-Ggq-Nrihk-Calcium Carb-K1 (One Daily Women 50 Plus(Vit K)) 400 mcg-500 mg calcium-20 mcg tablet Active TAB PO November 14, 2023 12:00am pantoprazole 40 mg delayed release oral tablet (15 sources) Proton Pump Inhibitor Start: 11-11-2023 take 40 mg by mouth once daily Pantoprazole Active 40 MG PO Daily November 11, 2023 12:00am Start: 11-27-2014 take 40 mg by mouth once daily pantoprazole 40 mg, Oral, Daily, Control of stomach acid Start Date: 11/27/14 Status: Ordered Probiotic 10 Ultra Strength (1 source) Start: 03-27-2024 take 1 capsule by mouth once daily Probiotic 10 Ultra Strength 1 cap(s), Oral, Daily, Refill(s) 0 Start Date: 03/27/24 Status: Ordered rOPINIRole 2 mg oral tablet (15 sources) Nonergot Dopamine Agonist Start: 11-11-2023 take 2 mg by mouth once daily Ropinirole Active 2 MG PO Daily November 11, 2023 12:00am Start: 08-31-2023 rOPINIRole (Re quip) 2 MG tablet Indications: Restless Leg Syndrome TAKE ONE-HALF (1/2) TABLET AT 4 P.M. THEN TAKE 1 FULL TABLET AT BEDTIME 90 tablet 3 08/31/2023 Active tiZANidine 4 mg oral tablet (14 sources) Central alpha-2 Adrenergic Agonist Start: 03-07-2024 take 0.5 tablet by mouth twice daily as needed for pain tiZANidine 4 mg Tab 0.5- 1 tabs, Oral, BID, PRN Pain, Refills(s) 0 Start Date: 03/07/24 Status: Ordered Start: 11-14-2023 take 4 mg by mouth o nce daily at bedtime Tizanidine Active 4 MG PO Daily at bedtime November 14, 2023 12:00am tiZANidine (Rosas flex) 4 MG tablet TAKE ONE-HALF (1/2) TO ONE TABLET TWICE A DAY NEEDED FOR PAIN Active valACYclovir 500 mg oral tablet (1 source) Herpesvirus Nucleoside Analog DNA Polymerase Inhibitor, Herpes Simplex Virus Nucleoside Analog DNA Polymerase Inhibitor, Herpes Zoster Virus Nucleoside Analog DNA Polymerase Inhibitor Start: 11-14-2023 take 500 mg by mouth once daily Valacyclovir Active 500 MG PO Daily November 14, 2023 12:00am zinc gluconate 50 mg oral tablet (12 sources) zinc gluconate 5 0 MG tablet 1 (one) time each day at the same time. Active Completed/Discontinued Medications Medication Drug Class(es) Dates Sig (Normalized) Sig (Original) 1 ml methylPREDNISolone acetate 40 mg/ml injection (13 sources) Corticosteroid Start: 4 End: methylPREDNISolone acetate (DEPO-Medrol) injection 40 mg Start: 03-01-2023 methylPREDNISo lone (Medrol Dospak) 4 MG tablets Indications: Primary osteoarthritis of right knee Follow schedule on package instructions 21 tablet 0 03/01/2023 Active Problems Active Problems Problem Classification Problem Date Documented Da te Episodic/Chronic Anxiety disorders (4 sources) Mixed anxiety and depressive disorder; Translations: [Generalized anxiety disorder] Onset: 4 03-07-2024 Chronic Deficiency and other anemia (1 source) Iron deficiency anemia 03-07-2024 Episodic Diabetes mellitus without complication (1 source) Other abnormal glucose; Translations: [Other abnormal glucose] Onset: 4 Episodic Diseases of white blood cells (1 source) Leukocytosis 03-07-2024 Chronic Disorders of lipid metabolism (16 sources) Mixed hyperlipidemia; Translations: [Mixed hyperlipidemia] Onset: 7 01-19-2023 Chronic E Codes: Natural/environment (1 source) Overexertion from prolonged static or awkward postures, initial encounter; Translations: [OVEREXERT PROLNG STAT/AWK PST INIT] Onset: 1 Episodic Esophageal disorders (14 sources) Gastroesophageal reflux disease; Translations: [Gastro-esophageal reflux disease without esophagitis] Onset: 7 01-19-2023 Chronic Headache; including migraine (1 source) Tension-type headache 03-07-2024 Chronic Joint disorders and dislocations; trauma-related (12 sources) Derangement of right knee; Translations: [Unspecified internal derangement of right knee] Onset: 1 01-19-2023 Chronic Malaise and fatigue (1 source) Other fatigue; Translations: [Other fatigue] Onset: 4 Episodic Mood disorders (12 sources) Major depression in partial remission; Translations: [Major depressive disorder, single episode, in partial remission] Onset: 3 01-19-2023 Chronic Mycoses (2 sources) Onychomycosis; Translations: [Tinea unguium] 08-21-2024 Episodic Neoplasms of unspecified nature or uncertain behavior (1 source) Neoplasm of unspecified behavior of digestive system; Translations: [Neoplasm of unspecified behavior of digestive system] Onset: 4 Episodic Nutritional deficiencies (1 source) Vitamin D deficiency 03-07-2024 Chronic Osteoarthritis (16 sources) Localized, primary osteoarthritis of the hand; Translations: [Primary osteoarthritis, unspecified hand] Onset: 0 01-19-2023 Chronic Other aftercare (1 source) Other assisted (current) drug therapy; Translations: [OTH MCC CURRENT DRUG THERAPY] Onset: 1 Episodic Other connective tissue disease (1 source) Fibromyositis 11-27-2014 Episodic Other connective tissue disease (2 sources) Pain of toe of right foot; Translations: [Pain in right toe(s)] 08-21-2024 Episodic Other gastrointestinal disorders (14 sources) Irritable bowel syndrome; Translations: [Irritable bowel syndrome without diarrhea] Onset: 7 01-19-2023 Chronic Other hereditary and degenerative nervous system conditions (14 sources) Restless legs; Translations: [Restless legs syndrome] Onset: 7 01-19-2023 Chronic Other inflammatory condition of skin (1 source) Rosacea 03-07-2024 Chronic Other liver diseases (1 source) Lesion of liver 03-07-2024 Chronic Other liver diseases (1 source) Hepatomegaly, not elsewhere classified; Translations: [Hepatomegaly, not elsewhere classified] Onset: 4 Episodic Other nervous system disorders (12 sources) Carpal tunnel syndrome of right wrist; Translations: [Carpal tunnel syndrome, right upper limb] Onset: 9 01-19-2023 Chronic Other nervous system disorders (2 sources) Impairment of balance; Translations: [Other abnormalities of gait and mobility] 09-22-2023 Episodic Other non-epithelial cancer of skin (1 source) History of malignant basal cell neoplasm of skin 03-07-2024 Episodic Other non-traumatic joint disorders (12 sources) Arthropathy of multiple joints; Translations: [Arthropathy, unspecified] Onset: 3 01-19-2023 Chronic Other non-traumatic joint disorders (6 sources) Pain in right knee; Translations: [Pain in joint, lower leg] Onset: 1 Episodic Other screening for suspected conditions (not mental disorders or infectious disease) (1 source) Encounter for screening mammogram for malignant neoplasm of breast; Translations: [Encounter for screening mammogram for malignant neoplasm of breast] Onset: 4 Episodic Other skin disorders (2 sources) Ingrowing nail; Translations: [Ingrowing nail] 08-21-2024 Episodic Other skin disorders (2 sources) Dystrophia unguium; Translations: [Nail dystrophy] 08-21-2024 Episodic Screening and history of mental health and substance abuse codes (1 source) Personal history of nicotine dependence; Translations: [PERSONAL HISTORY OF NICOTINE DEPEND] Onset: 1 Episodic Sprains and strains (1 source) Sprain of unspecified site of right knee, initial encounter; Translations: [SPRAIN UNS SITE RT KNEE INITIAL] Onset: Episodic Viral infection (1 source) Herpes zoster 11-27-2014 Episodic Past or Other Problems Problem Classification Problem Date Documented Da te Episodic/Chronic Mood disorders (3 sources) Mood disorders Onset: 10-24-2023 10-24-2023 Other connective tissue disease (13 sources) Fibromyalgia; Translations: [Fibromyalgia] Onset: 08-17-2017 01-19-2023 Episodic Other connective tissue disease (12 sources) Impingement syndrome of right shoulder region; Translations: [Impingement syndrome of right shoulder] Onset: 04-16-2016 01-19-2023 Episodic Other connective tissue disease (12 sources) Pain in right thumb; Translations: [Pain in right finger(s)] Onset: 01-19-2023 01-19-2023 Episodic Other connective tissue disease (12 sources) Spasm; Translations: [Cramp and spasm] Onset: 12-01-2018 01-19-2023 Episodic Other connective tissue disease (12 sources) Muscle spasm of cervical muscle of neck; Translations: [Other muscle spasm] Onset: 01-19-2023 01-19-2023 Episodic Other connective tissue disease (12 sources) Impingement syndrome of shoulder region; Translations: [Impingement syndrome of unspecified shoulder] Onset: 04-16-2016 06-21-2023 Episodic Other non-traumatic joint disorders (12 sources) Shoulder pain; Translations: [Pain in unspecified shoulder] Onset: 06-19-2018 01-19-2023 Episodic Spondylosis; intervertebral disc disorders; other back problems (13 sources) Sciatica; Translations: [Sciatica, left side] Onset: 05-26-2017 01-19-2023 Episodic Results Test Name Value Interpretation Reference Range 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 TECHNIQUE: Bilateral digital tomosynthesis MLO and CC views of the breasts were obtained, with creation of synthetic 2D views. Computer aided detection was utilized. FINDINGS: There are scattered areas of fibroglandular density. There are no suspicious masses, calcifications, or areas of architectural distortion. IMPRESSION: No mammographic evidence of malignancy. BI-RADS: BI-RADS 1 - Negative RECOMMENDATION: Routine screening mammogram in 1 year. RISK ASSESSMENT: TC Lifetime risk: 11.15%. The patient's reported personal and family medical history was used calculate their Tyrer-Cuzick lifetime risk of malignancy. Scores less than 20% are not considered high risk per ACR guidelines and patient should continue with the above recommendation. Finalized by Grady Stark MD on 06/21/2024 9:46 AM 1 b MAMM 1 YR Normal [facility] CBC AND AUTO DIFFon 06-20-20 24 ABSOLUTE BASOPHIL 0.1 X10E9/L Normal 0.0-0.2 [facility] Comment on above: Performed By: #### 2 4331-1, THYR, CBCA, HA1C #### [facility] ([id number]) [address], [address] [place] [address] ABSOLUTE NEUTROPHIL 2.4 X10E9/L Normal 1.5-6.6 [facility] Comment on above: Performed By: #### 2 4331-1, THYR, CBCA, HA1C #### [facility] ([id number]) [address], [address] [place] [address] Basophils/100 WBC (Bld) 1.2 % Normal [facility] Comment on above: Performed By: #### 2 4331-1, THYR, CBCA, HA1C #### [facility] ([id number]) [address], [address] [place] [address] Eosinophils (Bld) [#/Vol] 0.4 10*3/uL Normal 0.0-0.4 [facility] Comment on above: Performed By: #### 2 4331-1, THYR, CBCA, HA1C #### [facility] ([id number]) [address], [address] [place] [address] Eosinophils/100 WBC (Bld) 8.5 % Normal [facility] Comment on above: Performed By: #### 2 4331-1, THYR, CBCA, HA1C #### [facility] ([id number]) [address], [facility] [address] [place] [address] Erythrocyte distribution width (RBC) [Ratio] 15.8 % High 11.5-15.0 [facility] Comment on above: Performed By: #### 2 4331-1, THYR, CBCA, HA1C #### [facility] ([id number]) [address], [facility] [address] [place] [address] Hematocrit (Bld) [Volume fraction] 42.5 % Normal 35-47 [facility] Comment on above: Performed By: #### 2 4331-1, THYR, CBCA, HA1C #### [facility] ([id number]) [address], [address] [place] [address] Hemoglobin (Bld) [Mass/Vol] 14.2 g/dL Normal 11.7-15.5 [facility] Comment on above: Performed By: #### 2 4331-1, THYR, CBCA, HA1C #### [facility] ([id number]) [address], [facility] [address] [place] [address] Lymphocytes (Bld) [#/Vol] 0.9 10*3/uL Low 1.0-3.5 [facility] Comment on above: Performed By: #### 2 4331-1, THYR, CBCA, HA1C #### [facility] ([id number]) [address], [facility] [address] [place] [address] Lymphocytes/100 WBC (Bld) 20.5 % Normal [facility] Comment on above: Performed By: #### 2 4331-1, THYR, CBCA, HA1C #### [facility] ([id number]) [address], [address] [place] [address] MCH (RBC) [Entitic mass] 31.3 pg Normal 27-34 [facility] Comment on above: Performed By: #### 2 4331-1, THYR, CBCA, HA1C #### [facility] ([id number]) [address], [address] [place] [address] MCHC (RBC) [Mass/Vol] 33.5 g/dL Normal 32-36 [facility] Comment on above: Performed By: #### 2 4331-1, THYR, CBCA, HA1C #### [facility] ([id number]) [address], [address] [place] [address] MCV (RBC) [Entitic vol] 94 fL Normal 80-100 [facility] Comment on above: Performed By: #### 2 4331-1, THYR, CBCA, HA1C #### [facility] ([id number]) [address], [address] [place] [address] Monocytes (Bld) [#/Vol] 0.6 10*3/uL Normal 0-0.9 [facility] Comment on above: Performed By: #### 2 4331-1, THYR, CBCA, HA1C #### [facility] ([id number]) [address], [address] [place] [address] Monocytes/100 WBC (Bld) 13.5 % Normal [facility] Comment on above: Performed By: #### 2 4331-1, THYR, CBCA, HA1C #### [facility] ([id number]) [address], [facility] [address] [place] [address] Neutrophils/100 WBC (Bld) 56.3 % Normal [facility] Comment on above: Performed By: #### 2 4331-1, THYR, CBCA, HA1C #### [facility] ([id number]) [address], [address] [place] [address] Platelet mean volume (Bld) [Entitic vol] 7.6 fL Normal 7-12 [facility] Comment on above: Performed By: #### 2 4331-1, THYR, CBCA, HA1C #### [facility] ([id number]) [address], [facility] [address] [place] [address] Platelets (Bld) [#/Vol] 281 10*3/uL Normal 150-450 [facility] Comment on above: Performed By: #### 2 4331-1, THYR, CBCA, HA1C #### [facility] ([id number]) [address], [facility] [address] [place] [address] RBC COUNT 4.55 X10E12/L Normal 3.80-5.20 [facility] Comment on above: Performed By: #### 2 4331-1, THYR, CBCA, HA1C #### [facility] ([id number]) [address] [address] [place] [address] WBC (Bld) [#/Vol] 4.3 10*3/uL Normal 4.0-11.0 [facility] Comment on above: Performed By: #### 2 4331-1, THYR, CBCA, HA1C #### [facility] ([id number]) [address], [address] [place] [address] COMPREHENSIVE METABOLIC PANE Jet 06-20-2024 Albumin [Mass/Vol] 4.0 g/dL Normal 3.2-5.3 [facility] Comment on above: Performed By: #### 3 051-0, CMP #### [facility] ([id number]) [address], [address] [place] [address] ALP [Catalytic activity/Vol] 94 U/L Normal 39-130 [facility] Comment on above: Performed By: #### 3 051-0, CMP #### [facility] ([id number]) [address], [address] [place] [address] ALT [Catalytic activity/Vol] 18 U/L Normal 0-31 [facility] Comment on above: Performed By: #### 3 051-0, CMP #### [facility] ([id number]) [address], [address] [place] [address] Anion gap [Moles/Vol] 9 mmol/L Normal 5-15 [facility] Comment on above: Performed By: #### 3 051-0, CMP #### [facility] ([id number]) [address], [address] [place] [address] AST [Catalytic activity/Vol] 21 U/L Normal 0-41 [facility] Comment on above: Performed By: #### 3 051-0, CMP #### [facility] ([id number]) [address], [address] [place] [address] Bilirubin [Mass/Vol] 1.0 mg/dL Normal 0.3-1.2 [facility] Comment on above: Performed By: #### 3 051-0, CMP #### [facility] ([id number]) [address], [address] [place] [address] Calcium [Mass/Vol] 9.0 mg/dL Normal 8.5-10.5 [facility] Comment on above: Performed By: #### 3 051-0, CMP #### [facility] ([id number]) [address], [address] [place] [address] Chloride [Moles/Vol] 104 mmol/L Normal 98-109 [facility] Comment on above: Performed By: #### 3 051-0, CMP #### [facility] ([id number]) [address], [address] [place] [address] CO2 [Moles/Vol] 26 mmol/L Normal 22-32 [facility] Comment on above: Performed By: #### 3 051-0, CMP #### [facility] ([id number]) [address], [address] [place] [address] Creatinine [Mass/Vol] 0.82 mg/dL Normal 0.40-1.00 [facility] Comment on above: Result Comment: METH OD TRACEABLE TO IDMS STANDARD Performed By: #### 3 051-0, CMP #### [facility] ([id number]) [address], [facility] [address] [place] [address] GFR/1.73 sq M.predicted among non-blacks MDRD (S/P/Bld) [Vol rate/Area] 76 mL/min/{1.73_m2} Normal >59 [facility] Comment on above: Result Comment: Reported eGFR is based on the CKD-EPI 2020 equation that does not use a race coefficient. Performed By: #### 3 051-0, CMP #### [facility] [facility] ([id number]) [address], [address] [place] [address] Glucose [Mass/Vol] 92 mg/dL Normal 65-99 [facility] Comment on above: Performed By: #### 3 051-0, CMP #### [facility] ([id number]) [address], [address] [place] [address] Potassium [Moles/Vol] 4.2 mmol/L Normal 3.5-5.0 [facility] Comment on above: Performed By: #### 3 051-0, CMP #### [facility] ([id number]) [address], [address] [place] [address] Protein [Mass/Vol] 6.6 g/dL Normal 6.0-8.0 [facility] Comment on above: Performed By: #### 3 051-0, CMP #### [facility] ([id number]) [address], [address] [place] [address] Sodium [Moles/Vol] 139 mmol/L Normal 134-146 [facility] Comment on above: Performed By: #### 3 051-0, CMP #### [facility] ([id number]) [address], [facility] [address] [place] [address] Urea nitrogen [Mass/Vol] 22 mg/dL Normal 5-27 [facility] Comment on above: Performed By: #### 3 051-0, CMP #### [facility] ([id number]) [address], [facility] [address] [place] [address] FREE T3on 06-20-2024 Free T3 [Mass/Vol] 3.52 pg/mL Normal 2.50-3.90 [facility] Comment on above: Performed By: #### 3 051-0, CMP #### [facility] ([id number]) [address], [address] [place] [address] HGB A1C (GLYCO-HGB)on 2023 Glucose [Mass/Vol] 114 mg/dL Normal [facility] Comment on above: Performed By: #### 2 4331-1, THYR, CBCA, HA1C #### [facility] ([id number]) [address], [facility] [address] [place] [address] HbA1c (Bld) [Mass fraction] 5.6 % Normal 4.4-5.6 [facility] Comment on above: Result Comment: NOTE ADA Guidelines Result HgbA1c Normal : less than 5.7 % Prediabetes : 5.7 % to 6.4 % Diabetes : > 6.4 % Use with caution in patients with abnormal hemoglobin variants as the half-life of red blood cells and in vivo glycation rates are affected. Performed By: #### 2 4331-1, THYR, CBCA, HA1C #### [facility] ([id number]) [address], [address] [place] [address] Lipid 1996 panelon 06-20-202 4 Cholesterol [Mass/Vol] 173 mg/dL Normal 150-200 [facility] Comment on above: Performed By: #### 2 4331-1, THYR, CBCA, HA1C #### [facility] ([id number]) [address], [address] [place] [address] Cholesterol in HDL [Mass/Vol] 83 mg/dL Normal >39 [facility] Comment on above: Result Comment: HDL <40 mg/dL - High Risk HDL > or = 40mg/dL- Desirable HDL >60 mg/dL - Negative Risk Performed By: #### 2 4331-1, THYR, CBCA, HA1C #### [facility] ([id number]) [address], [address] [place] [address] Cholesterol in LDL [Mass/Vol] 80 mg/dL Normal <130 [facility] Comment on above: Result Comment: LDL <100 mg/dL - Desirable LDL >160 mg/dL - High Risk Performed By: #### 2 4331-1, THYR, CBCA, HA1C #### [facility] ([id number]) [address], [address] [place] [address] Cholesterol in VLDL [Mass/Vol] 10 mg/dL Normal 0-30 [facility] Comment on above: Performed By: #### 2 4331-1, THYR, CBCA, HA1C #### [facility] ([id number]) [address], [address] [place] [address] CHOLESTEROL:HDL 2.1 Normal 1.0-5.0 [facility] Comment on above: Performed By: #### 2 4331-1, THYR, CBCA, HA1C #### [facility] ([id number]) [address], [address] [place] [address] Triglyceride [Mass/Vol] 49 mg/dL Normal 27-150 [facility] Comment on above: Performed By: #### 2 4331-1, THYR, CBCA, HA1C #### [facility] ([id number]) [address], [facility] [address] [place] [address] THYROID PROFILEon 06-20-2024 Free T4 [Mass/Vol] 1.02 ng/dL Normal 0.61-1.60 [facility] Comment on above: Performed By: #### 2 4331-1, THYR, CBCA, HA1C #### [facility] ([id number]) [address], [address] [place] [address] TSH 4.01 uIU/mL Normal 0.49-4.67 [facility] Comment on above: Performed By: #### 2 4331-1, THYR, CBCA, HA1C #### [facility] ([id number]) [address], [facility] [address] [place] [address] Ambulatory Visit Summaryon 0 03-27-2024 Ambulatory Visit Summary Ambulatory Visit Summary TWILA CEBALLOS :1950 Visit Date:03/27/2024 Ambulatory Visit Instructions Your Care Team Attending Physician - Pankaj PUTNAM MD Primary Care Physician - ALISSA GU CNP Referring Physician - ALISSA GU CNP This Is Your Medications List Contact prescribing physician if questions or concerns atorvastatin (Lipitor) bifidobacterium-lactobacillu s (Probiotic 10 Ultra Strength) dicyclomine duloxetine (Cymbalta) meloxicam (meloxicam 15 mg Tab) multivitamin (Multiple Vitamins Tab) pantoprazole ropinirole (ropinirole 2 mg Tab) tizanidine (tiZANidine 4 mg Tab) Procedures Performed Incision and drainage of abdominal abscess (11/2023), Colonoscopy (11/14/2023), EGD - esophagogastroduodenoscopy (11/14/2023), removal of right foot ganglion cyst (12/11/2014), Appendectomy, Biopsy of liver, CTR - carpal tunnel release, Cyst of breast, Ovarian cystectomy, Repair of meniscus, Tonsillectomy. Discharge Vitals Heart Rate (Peripheral) 66 Respiratory Rate 16 Blood Pressure 130/83 Height 165.1 cm Height 65 in Weight 66.5 kg Weight 146.3 lb BMI 24.4 Medications What How Much When Instructions Unchanged atorvastatin (Lipitor) 20 Milligram By Mouth Every day Contact prescribing physician if questions or concerns Unchanged bifidobacterium-lactobacillu s (Probiotic 10 Ultra Strength) 1 Capsules By Mouth Every day Contact prescribing physician if questions or concerns Unchanged dicyclomine 10 Milligram By Mouth 3 times a day as needed for abdominal pain Contact prescribing physician if questions or concerns Unchanged duloxetine (Cymbalta) 30 Milligram By Mouth 2 times a day Contact prescribing physician if questions or concerns Unchanged meloxicam (meloxicam 15 mg Tab) 1 Tablets By Mouth Every day Contact prescribing physician if questions or concerns Unchanged multivitamin (Multiple Vitamins Tab) 1 Tablets By Mouth Every day Contact prescribing physician if questions or concerns Unchanged pantoprazole 40 Milligram By Mouth Every day Contact prescribing physician if questions or concerns Unchanged ropinirole (ropinirole 2 mg Tab) 0.5 tabs in the evening and 1 tabs at bedtime Contact prescribing physician if questions or concerns Unchanged tizanidine (tiZANidine 4 mg Tab) 0.5- 1 tabs By Mouth 2 times a day as needed for Pain Contact prescribing physician if questions or concerns Allergies Contrast Dye (Hives) Latex (Rash) sulfa drugs (Hives) Problems Ongoing - Any problem that you are currently receiving treatment for. Chronic low back pain Fibromyalgia Gastroesophageal reflux disease without esophagitis History of basal cell carcinoma Hypercholesterolemia Iron deficiency anemia Irritable bowel syndrome Lesion of liver Leukocytosis Mixed anxiety and depressive disorder Mixed hyperlipidemia Restless legs Rosacea Tension-type headache Vitamin D deficiency Patient Survey You may receive a survey via text or e-mail asking about your office visit. Please share your experience with us by completing your survey. We appreciate your feedback and thank you for choosing us for your care. Normal [facility] Activated partial thrombopla stin time (aPTT) in platelet poor plasma by coagulation aOrdered By: Abby Varela on 11-11-2023 aPTT Coag (PPP) [Time] 28.2 s 25.1-36.5 [facility] Comment on above: A hematocrit value g reater than 55% may lead to inaccurate results in coagulation testing. Patients having hematocrit values >55% require a special collection tube for coagulation studies. Please contact the laboratory at [phone] for redraw instructions. Coagulation Profileon 2023 aPTT Coag (Bld) [Time] 28.2 s Normal 25.1-36.5 [facility] Comment on above: Order Comment: STAT FOR US BX Result Comment: A he matocrit value greater than 55% may lead to inaccurate results in coagulation testing. Patients having hematocrit values >55% require a special collection tube for coagulation studies. Please contact the laboratory at [phone] for redraw instructions. PERFORMED BY: [place] [address] PATHOLOGIST POT PULLER DOROTEO BANKS M.D. Performed By: #### P LT, PP #### [facility] [address] [place] [address] INR Coag (PPP) [Relative time] 1.6 {INR} Normal [facility] Comment on above: Order Comment: STAT [...] Performed By: #### P LT, PP #### [facility] [address] [place] [address] PT Coag (PPP) [Time] 17.9 s High 9.0-12.9 [facility] Comment on above: Order Comment: STAT FOR US BX Result Comment: A he matocrit value greater than 55% may lead to inaccurate results in coagulation testing. Patients having hematocrit values >55% require a special collection tube for coagulation studies. Please contact the laboratory at [phone] for redraw instructions. Performed By: #### P LT, PP #### [address] INR in Platelet poor plasma by Coagulation assayOrdered By: Abby Varela on 11-11-2023 INR Coag (PPP) [Relative time] 1.6 {INR} [facility] Comment on above: INR Therapeutic Rang [...] 3 - 4.5 Jet 11-11-2023 L Specimen: R eceived: 11/11/23 [facility] [id number] Spec Type: Surgical Subm Dr: Yamil Cano DO Tissues: A Liver - Needle Biopsy (LT LIVER LOBE) Procedures: PAS - LGRN, MART 1/MARCEL A, HE/2, Gross/Micro L5, GMS II Dark, AE1-AE3, CD68, CK20, CK 7, SOX-10, DIFF QWIK/2 Age/ Patient Sex Location Account Attending Physician Twila Ceballos 73/F [id number] Abby Varela MD SPEC NUM: [id number] RECD: 11/11/23 STATUS: [facility] NUM: [id number] TERESA: 11/11/[address]: Yamil Cano DO ENTERED: 11/11/[address] [facility] [address]: SPEC TYPE: Surgical DEPT: S [...] Entirely submitted in one cassette labeled A1. -------- Specimen: [id number] Received: 11/11/23 Status: [facility] [place] Num: [id number] Spec Type: Surgical Subm Dr: Yamil Cano DO Tissues: A Liver - Needle Biopsy (LT LIVER LOBE) Procedures: PAS - LGRN, MART 1/MARCEL A, HE/2, Gross/Micro L5, GMS II Dark, AE1-AE3, CD68, CK20, CK 7, SOX-10, DIFF QWIK/2 -------- Patient: Twila Ceballos [id number] (Continued) -------- Specimen: [id number] Received: 11/11/23 (Continued) Signed (signature on file) Dayday Ford MD 11/15/231757 -------- Specimen: [id number] Received: 11/11/23 Status: [facility] [place] Num: [id number] Spec Type: Surgical Subm Dr: Yamil Cano DO Tissues: A Liver - Needle Biopsy (LT LIVER LOBE) Procedures: PAS - LGRN, MART 1/MARCEL A, HE/2, Gross/Micro L5, GMS II Dark, AE1-AE3, CD68, CK20, CK 7, SOX-10, DIFF QWIK/2 -------- Patient: Twila Ceballos [id number] (Continued) -------- Specimen: [id number] Received: 11/11/23 (Continued) Intraoperative Diagnosis A. Liver biopsy (left liver lobe per requisition): - Neutrophilic inflammation. No malignant cells seen. Portion of specimen sent for cultures. Reported by Dr. Grullon 11/11/2023 at 11:55 AM CPT Codes 33490, 57266 -------- -------- Specimen: [id number] Received: 11/11/23 Status: [facility] Jose Francisco Num: [id number] Spec Type: Surgical Subm Dr: Yamil Cano DO Tissues: A Liver - Needle Biopsy (LT LIVER LOBE) Procedures: PAS - LGRN, MART 1/MARCEL A, HE/2, Gross/Micro L5, GMS II Dark, AE1-AE3, CD68, CK20, CK 7, SOX-10, DIFF QWIK/2 -------- Patient: Twila Ceballos [id number] (Continued) -------- Signed (signature on file) Dayday Ford MD 11/15/23 1758 Normal [facility] No Panel InformationOrdered By: Gopi Camara on 11-11-2023 Mycobacterium Identification N/A [facility] Mycology Susceptibility N/A [facility] Platelet Counton 11-11-2023 Platelets (Bld) [#/Vol] 675 10*3/uL High 150-450 [facility] Comment on above: Order Comment: STAT FOR US BX Result Comment: PERF ORMED BY: [place] [id number] PATHOLOGIST POT PULLER DOROTEO BANKS M.D. Performed By: #### P LT, PP #### [address] Platelets Auto (Bld) [#/Vol] Ordered By: Abby Varela on 11-11-2023 Platelets (Bld) [#/Vol] 675 10*3/uL 150-450 [facility] Prothrombin time (PT)Ordered By: Abby Varela on 11-11-2023 PT Coag (PPP) [Time] 17.9 s 9.0-12.9 [facility] Comment on above: A hematocrit value g reater than 55% may lead to inaccurate results in coagulation testing. Patients having hematocrit values >55% require a special collection tube for coagulation studies. Please contact the laboratory at [phone] for redraw instructions. US needle biopsyon 4 US needle biopsy [facility] [address] [place] [address] Ultrasound Report Signed Patient: Twila Ceballos MR#: [id number] : 1950 Acct:[id number] Age/Sex: 73 / F ADM Date: 11/11/23 Loc: Room: Type: [facility] Attending Dr: Abby Varela MD Ordering Provider: [...] Yamil Cano M.D.11/11/2023 3:15 PM Dictation Location: [place] [address] Tech: Hansa Azar Transcribed By: [facility] 11/11/23 1515 Dictated By: Yamil Cano DO 11/11/23 1512 Signed By: 11/11/23 1515 [facility] No Panel Informationon 10-04 Pavan Buckner NP 1:23 PM L Inj/Asp: R knee on 10/04/2023 1:22 PM Indications: pain Medications: 40 mg methylPREDNISolone acetate 40 MG/ML Procedure, treatment alternatives, risks and benefits explained, specific risks discussed. Consent was given by the patient. [employer] [facility] CT HEAD WO IV CONTRASTon CT HEAD [...] Available XR KNEE RT 4V or >on 021 XR KNEE RT 4V or > [...] by: SUSANNAH HOUSE Date: 2021-06-18 20:29 Normal [facility] Vital Signs Date Time Vital Sign Value Performing Clinician Facility 08-21-2024 08:37-0500 Body height 162.[address] [facility] Work Phone: [facility] 08-21-2024 08:37-0500 Body mass index (BMI) [Ratio] 26.61 kg/m2 Silvia TREVINO Work Phone: [facility] 08-21-2024 08:37-0500 Body weight 70.[address] [facility] Work Phone: [facility] 03-27-2024 10:00-0400 Blood Pressure Location Pankaj PITTSCesario [facility] [place] 03-27-2024 10:00-0400 Diastolic blood pressure 83 mm[Hg] Pankaj PITTSL [facility] [place] 03-27-2024 10:00-0400 Heart rate 66 /min Pankaj PITTSL [facility] [place] 03-27-2024 10:00-0400 Respiratory rate 16 /min Pankaj PITTSL [facility] [place] 03-27-2024 10:00-0400 Systolic blood pressure 130 mm[Hg] Pankaj NILL [facility] [place] 11-14-2023 12:52-0400 Diastolic blood pressure 73 mm[Hg] MD Gopi Camara Work Phone: [facility] 11-14-2023 12:52-0400 Heart rate 65 /min MD Gopi Camara Work Phone: [facility] 11-14-2023 12:52-0400 Respiratory rate 16 /min MD Gopi Camara Work Phone: [facility] 11-14-2023 12:52-0400 SaO2% (BldA) [Mass fraction] 94 % MD Gopi Camara Work Phone: [facility] 11-14-2023 12:52-0400 Systolic blood pressure 112 mm[Hg] MD Gopi Camara Work Phone: [facility] 11-14-2023 10:55-0400 Body height 165.1 cm MD Gopi Camara Work Phone: [facility] 11-14-2023 10:55-0400 Body temperature 98 [degF] MD Gopi Camara Work Phone: [facility] 11-14-2023 10:55-0400 Body weight 67.13 kg MD Gopi Camara Work Phone: [facility] 11-11-2023 12:55-0400 Diastolic blood pressure 60 mm[Hg] MD Gopi Camara Work Phone: [facility] 11-11-2023 12:55-0400 Heart rate 80 /min MD Gopi Camara Work Phone: [facility] 11-11-2023 12:55-0400 Respiratory rate 18 /min MD Gopi Camara Work Phone: [facility] 11-11-2023 12:55-0400 SaO2% (BldA) [Mass fraction] 94 % MD Gopi Camara Work Phone: [facility] 11-11-2023 12:55-0400 Systolic blood pressure 114 mm[Hg] MD Gopi Camara Work Phone: [facility] 11-11-2023 10:34-0400 Body height 165.1 cm MD Gopi Camara Work Phone: [facility] 11-11-2023 10:34-0400 Body weight 65.77 kg MD Gopi Camara Work Phone: [facility] Encounters Encounter Date Encounter Type Care Provider Facility Start: 08-21-2024 End: 08-21-2024 Bamboo RecordSledheet Silvia Melton DPM Work Phone: [facility] Start: 08-21-2024 End: 08-21-2024 Bamboo flowsheet Silvia Melton DPM Work Phone: [facility] Start: 08-21-2024 End: 08-21-2024 ambulatory SILVIA MELTON Not Available Start: 08-21-2024 End: 08-21-2024 Office outpatient visit 15 minutes Silvia Melton DPM Work Phone: [facility] Comment on above: Ingrown nail (Primar y Dx); Pain of toe of right foot; Onychomycosis; Nail dystrophy Start: 06-20-2024 Encounter for other specified special examinations JEANNETTE [facility] Start: 06-20-2024 End: 06-20-2024 ambulatory ALISSA GU [facility] Start: 04-10-2024 ambulatory ALISSA GU Facilit y: [facility] Start: 03-27-2024 End: 03-27-2024 ambulatory [facility] Start: 03-27-2024 End: 03-27-2024 Patient encounter procedure Pankaj Quiroz JERSEY [facility] [place] Start: 03-23-2024 ambulatory ALISSA GU Facility: [place] Start: 02-28-2024 ambulatory ALISSA GU Facility: [facility] Start: 01-10-2024 End: 01-10-2024 ambulatory SILVIA Chari EMLTON Not Available Start: 11-14-2023 Non-patient / Non-visit MD Emilio Camara Work Phone: [facility] Work Phone: Start: 11-14-2023 End: 11-14-2023 ambulatory Jimmy White Facility:[facility] Start: 11-14-2023 End: 11-14-2023 Admission to same day surgery center MD Gopi Camara Work Phone: [facility] Work Phone: Start: 11-14-2023 End: 11-14-2023 ambulatory MD Gopi Camara Work Phone: [facility] Work Phone: Start: 11-11-2023 End: 11-11-2023 ambulatory Abby Nichole Facility:[facility] Start: 11-11-2023 End: 11-11-2023 Admission to same day surgery center MD Gopi Camara Work Phone: [facility] [address] [place] Work Phone: Start: 11-11-2023 End: 11-11-2023 ambulatory MD Gopi Camara Work Phone: [facility] Work Phone: Start: 10-24-2023 End: 10-24-2023 ambulatory LENNY GARCIA Not Available Start: 10-10-2023 End: 10-10-2023 ambulatory KORINA OKEEFE Not Available Start: 10-06-2023 Bamboo flowsheet Shayla Trammell Ferny kston PT Work Phone: [facility] Start: 10-06-2023 Bamboo flowsheet Shayla Trammell Ferny kston PT Work Phone: [facility] Start: 10-06-2023 End: 10-06-2023 ambulatory SHAYLA GOLDMAN Not Available Start: 10-04-2023 Bamboo flowsheet Armin Branham PT A [facility] Start: 10-04-2023 Bamboo flowsheet Armin Branham PT A [facility] Start: 10-04-2023 End: 10-04-2023 Office outpatient visit 25 minutes Pavan Buckner TIE [employer]ER Work Phone: [facility] Comment on above: Primary osteoarthrit is of right knee (Primary Dx); Chronic pain of right knee Start: 10-04-2023 End: 10-04-2023 Treatment Armin Branham IT 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 [facility] Comment on above: Balance disorder (Pr imary Dx); Arthritis of right knee Start: 09-29-2023 Telephone encounter Shayla patterson PT Work Phone: [facility] Comment on above: Cx PT today (She trip led noting an unexpectant request came up and unable to make PT today; she confirmed 10/04.) Start: 09-27-2023 Bamboo flowsheet Shayla Trammell Ferny kston PT Work Phone: [facility] Start: 09-27-2023 Bamboo flowsheet Shayla Trammell Ferny kston PT Work Phone: [facility] Start: 09-27-2023 End: 09-27-2023 ambulatory SHAYLA GOLDMAN Not Available Start: 09-22-2023 Bamboo flowsheet Shayla Trammell Ferny kston PT Work Phone: [facility] Start: 09-22-2023 Bamboo flowsheet Shayla stewart PT Work Phone: [facility] Start: 09-22-2023 End: 09-22-2023 Treatment Shayla Goldman PT Work Phone: [facility] Comment on above: Balance disorder (Pr imary Dx); Arthritis of right knee Start: 09-20-2023 End: 09-20-2023 ambulatory ROXANNA BROWN Not Available Start: 09-14-2023 End: 09-14-2023 ambulatory SHANTELL A LE Not Available Start: 09-13-2023 End: 09-13-2023 ambulatory SHANTELL A LE Not Available Start: 09-13-2023 End: 09-13-2023 ambulatory SHAYLA GOLDMAN Not Available Start: 08-31-2023 End: 08-31-2023 ambulatory SHANTELL A LE Not Available Start: 06-18-2021 End: 06-18-[address] SANTIAGO CONNOLLY Facility: Procedures Date Procedure Procedure Detail Performing Clinician Start: 06-20-2024 Mammography Silvia Melton DPM Work Phone: Start: 11-21-2023 Incision and drainage of abdominal abscess Pankaj PUTNAM Start: 11-14-2023 Esophagogastroduodenoscopy MD Gopi us Work Phone: Start: 11-14-2023 Colonoscopy Silvia TREVINOM Work Phone: Start: 11-14-2023 Colonoscopy Pankaj NILCesario Start: 11-14-2023 Esophagogastroduodenoscopy Pankaj PUTNAM Start: 11-11-2023 Investigation of transfusion reaction MD Gopi Camara Work Phone: Start: 11-11-2023 Mycobacterium Identification MD Gopi Camara Work Phone: Start: 11-11-2023 Mycology Susceptibility MD Gopi Camara Work Phone: Start: 11-11-2023 Ultrasonic guidance for needle biopsy MD Gopi Camara Work Phone: Start: 10-04-2023 Arthrocentesis aspir&/inj major jt/bursa w/o Pavan T Sita [employer]ER Work Phone: Start: 05-30-2023 Mammography Shayla Goldman PT Work Phone: Start: 12-11-2014 removal of right foot ganglion cyst Nathan aecesario NILL Appendectomy Pankaj NILL Biopsy of liver Pankaj NILL Cyst of breast (disorder) Yuni chabharti NILL Decompression of median nerve Pankaj NILL Excision of cyst of ovary Yuni chael NILL Repair of meniscus Pankaj Bartholomew ILL Tonsillectomy Pankaj NILL Plan of Treatment Date Care Activity Detail Author Start: 11-13-2033 Screening for malignant neoplasm of colon [facility] Start: 06-20-2025 Screening for malignant neoplasm of breast Mammogram [facility] Start: 06-21-2024 Medicare Annual Wellness (AWV) Medicare Annual Wellness (AWV) [facility] Start: 05-30-2024 Screening for malignant neoplasm of breast Mammogram [facility] Start: 05-12-2024 Screening for malignant neoplasm of colon [facility] Start: 11-14-2023 [facility] Start: 11-11-2023 Microscopic observation [Identifier] in Unspecified specimen by Gram stain Gram Stain [facility] Start: 11-11-2023 End: 11-11-2023 [facility] Start: 11-11-2023 Ultrasonic guidance for needle biopsy [facility] Start: 10-20-2023 End: 10-20-2023 ambulatory 10/20/2023 11:00 AM EST Treatment [facility] [address] [place] [address] Shayla Goldman, PT [address] [place] [address] [facility] Start: 10-18-2023 End: 10-18-2023 ambulatory 10/18/2023 10:30 AM EST Treatment [facility] [address] [place] [address] Shayla Goldman, PT [address] [place] [address] [facility] Start: 10-17-2023 End: 10-17-2023 ambulatory 10/17/2023 10:00 AM EST Treatment [facility] [address] [place] [address] Shayla Goldman, PT [address] [place] [address] [facility] Start: 10-13-2023 End: 10-13-2023 ambulatory 10/13/2023 11:00 AM EST Treatment [facility] [address] [place] [address] Shayla Goldman, PT [address] [place] [address] [facility] Start: 10-11-2023 End: 10-11-2023 Patient encounter procedure 10/11/2023 3:15 PM EST Office Visit [facility] [address] [place] [id number] Silvia Melton, DPKarly [address] [place] [address] [facility] Start: 10-11-2023 End: 10-11-2023 ambulatory 10/11/2023 10:30 AM EST Treatment [facility] [address] [place] [address] Shayla Goldman, PT [address] [place] [address] [facility] Start: 10-10-2023 End: 10-10-2023 Social Work 10/10/2023 1:00 PM EST Social Work [facility] [address] [place] [facility] [place] [address] Korina Okeefe S, HERBOLOGIST-S [address] [place] [facility] [address] [facility] Start: 10-06-2023 End: 10-06-2023 ambulatory [facility] Start: 10-04-2023 End: 10-04-2023 Patient encounter procedure 10/04/2023 1:00 PM EST Office Visit [facility] [address] [place] [address] Pavan Buckner T, TIE LAYER [address] [facility] [place] [address] [facility] Start: 10-04-2023 End: 10-04-2023 ambulatory [facility] Start: 09-29-2023 End: 09-29-2023 ambulatory 09/29/2023 4:30 PM EST Treatment [facility] [address] [place] [address] Shayla Goldman, PT [address] [place] [address] [facility] Start: 09-27-2023 End: 09-27-2023 ambulatory 09/27/2023 8:30 AM EST Treatment [facility] [address] [place] [address] Shayla Goldman, PT [address] [place] [address] [facility] CI PT Start: 1950 Screening for malignant neoplasm of colon [facility] Fungus identified in Unspecified specimen by Culture [facility] Microscopic observat ion [Identifier] in Unspecified specimen by Smear [facility] Mycobacterium sp identified in Unspecified specimen by Organism specific culture [facility] Patient Education Formerly [facility] Live r Biopsy Discharge Instructions [facility] Work Phone: Immunizations Immunization Date Immunization Notes Care Provider Fa cility 06-18-2023 tetanus toxoid, redu jay diphtheria toxoid, and acellular pertussis vaccine, adsorbed Shayla Goldman PT Work Phone: [facility] Work Phone: 04-28-2023 influenza virus vacc ine, unspecified formulation Pankaj PUTNAM [facility] 04-28-2023 Influenza, Seasonal, Quadrivalent, Adjuvanted Shayla Goldman PT Work Phone: [facility] 04-28-2023 Pneumococcal Conjuga te PCV 20 Shayla Goldman PT Work Phone: [facility] 04-28-2023 RSV, recombinant, protein subunit RSVpreF, adjuvant reconstitu, 120mcg/0.5mL, PF (Arexvy) Shayla Goldman PT Work Phone: [facility] 05-14-2022 Influenza, Seasonal, Quadrivalent, Adjuvanted Shayla Goldman PT Work Phone: [facility] 05-06-2022 Moderna Bivalent Tello ster Vaccination Shayla Goldman PT Work Phone: [facility] 05-06-2022 Moderna SARS-CoV-2 50mcg/0.5mL Booster Shayla Goldman PT Work Phone: [facility] 12-09-2021 SARS-CoV-2 (COVID-19 ) mRNA-1273 vaccine Pankaj PUTNAM [facility] Comment on above: Result Comment: 2023: [id number] 06-24-2021 SARS-CoV-2 (COVID-19 ) mRNA-1273 vaccine Pankaj PUTNAM [facility] Comment on above: Result Comment: 2023: [id number] 04-16-2021 Influenza, High-dose Seasonal, Quadrivalent, Preservative Free Shayla Goldman PT Work Phone: [facility] 10-28-2020 SARS-CoV-2 (COVID-19 ) mRNA-1273 vaccine Pankaj PUTNAM [facility] Comment on above: Result Comment: 2023: [id number] 09-30-2020 SARS-CoV-2 (COVID-19 ) mRNA-1273 vaccine Pankaj PUTNAM [facility] Comment on above: Result Comment: 2023: [id number] 04-29-2020 influenza, injectabl e, quadrivalent, preservative free Shayla Godlman PT Work Phone: [facility] 05-04-2019 Seasonal trivalent influenza vaccine, adjuvanted, preservative free Shayla Goldman PT Work Phone: [facility] 05-10-2018 zoster vaccine recombinant Shayla Goldman PT Work Phone: [facility] 04-14-2018 influenza, seasonal, injectable, preservative free Shayla Goldman PT Work Phone: [facility] 04-13-2018 influenza virus vacc ine, split virus (incl. purified surface antigen) Shayla Goldman PT Work Phone: [facility] 04-11-2018 influenza, injectabl e, quadrivalent, preservative free Shayla Goldman PT Work Phone: [facility] 12-21-2017 zoster vaccine recombinant Shayla Goldman PT Work Phone: [facility] 05-23-2017 influenza, injectabl e, quadrivalent, preservative free Shayla Goldman PT Work Phone: [facility] 05-23-2017 pneumococcal polysaccharide vaccine, 23 valent Shayla Goldman PT Work Phone: [facility] 06-02-2016 influenza, injectabl e, quadrivalent, preservative free Shayla Goldman PT Work Phone: [facility] 06-02-2016 pneumococcal conjuga te vaccine, 13 valent Shayla Goldman PT Work Phone: [facility] 05-28-2015 influenza, injectabl e, quadrivalent, preservative free Shayla Goldman PT Work Phone: [facility] 05-28-2015 pneumococcal conjuga te vaccine, 13 valent Shayla Goldman PT Work Phone: [facility] 05-22-2015 seasonal influenza, intradermal, preservative free Shayla Goldman PT Work Phone: [facility] 05-22-2014 pneumococcal polysaccharide vaccine, 23 valent Shayla Goldman PT Work Phone: [facility] 12-25-2012 tetanus toxoid, redu jay diphtheria toxoid, and acellular pertussis vaccine, adsorbed Shayla Goldman PT Work Phone: [facility] 10-13-2009 novel influenza-H1N1 -09, preservative-free, injectable Shayla Goldman PT Work Phone: [facility] Payers Date Payer Category Payer Self-pay 2022 Private Health Insurance SHAILESH schneider [id number] 2022 Unknown AARP AARP [id number] 2022-Present [address] [place] [address] [id number] 2021 Unknown [id number] 2017 Medicare [id number] 2017 Medicare [id number] 1959 Medicare [id number] 1950 Unknown [id number] 2.16.840.1.377595.3.579.2 .593 1950 Unknown [id number] 2.16.840.1.882995.3.579.2 .727 1950 Unknown [id number] 2.16.840.1.103903.3.579.2 .727 1952 Unknown [id number] 2.16.840.1.155081.3.579.2 .1286 1952 Unknown [id number] 2.16.840.1.889212.3.579.2 .1286 1952 Unknown [id number] 2.16.840.1.634269.3.579.2 .1259 1952 Unknown [id number] 2.16.840.1.125446.3.579.2 .1259 1952 Unknown [id number] 2.16.840.1.257015.3.579.2 .1259 1952 Unknown [id number] 2.16.840.1.981880.3.579.2 .9 1952 Unknown [id number] 2.16.840.1.421872.3.579.2 .9 1952 Unknown [id number] 2.16.840.1.523886.3.579.2 .1258 1952 Unknown [id number] 2.16.840.1.806116.3.579.2 .9 1952 Unknown [id number] 2.16.840.1.673567.3.579.2 .1258 1952 Unknown [id number] 2.16.840.1.902411.3.579.2 .9 1952 Unknown [id number] 2.16.840.1.601111.3.579.2 .1258 1952 Unknown [id number] 2.16.840.1.703468.3.579.2 .9 1952 Unknown [id number] 2.16.840.1.423039.3.579.2 .9 1952 Unknown [id number] 2.16.840.1.802622.3.579.2 .9 1950 Unknown [id number] 2.16.840.1.487699.3.579.2 .1259 Unknown [id number] 2.16.840.1.515550.3.579.2 .531 Unknown [id number] 2.16.840.1.879638.3.579.2 .531 Social History Date Type Detail Facility Start: 01-19-2023 End: 03-27-2024 Tobacco smoking status NHIS Never smoked tobacco [facility] Start: 01-19-2023 Tobacco use and exposure Smoke less tobacco non-user [facility] Start: 09-14-2023 End: 10-04-2023 Alcohol intake Current drinker of alcohol (finding) [facility] Start: 05-30-2023 End: 10-24-2023 History of Social function [facility] Start: 05-30-2023 End: 10-24-2023 Humiliation, Afraid, Rape, and Kick questionnaire [HARK] [facility] Within the last year , have you been afraid of your partner or ex-partner? Patient refused [facility] Within the last year , have you been kicked, hit, slapped, or otherwise physically hurt by your partner or ex-partner? No [facility] Do you belong to any clubs or organizations such as restorationism groups, [employer], [employer] or athletic groups, or school groups? Yes [...] Start: 1950 Sex Assigned At Female F [facility] Start: 01-10-2024 End: 08-21-2024 Alcoholic beverage intake Ex-drinker (finding) [facility] Goals Date Patient Goal Desired Activity /State Functional Status Date Assessment Result Facility 03-27-2024 Functional Status N/A [facility] [place] Clinical Notes 09-22-2023 to 08-21-2024 Silvia Melton DPM - 08/21/2024 8:30 AM Jerzy Buckner, TIE LAYER - 10/04/2023 1:00 PM Charlie Goldman, PT - 09/22/2023 1:00 PM EST Note Date & Type Note Facility 08-21-2024 History of Present illness Narrative Images from the original note were not included. Subjective Patient ID: Twila Ceballos is a 73 y.o. female who presents for Ingrown Toenail (Pt is here today for an painful ingrown nail Rt lateral side hallux ). HPI Patient returns complaining of a painful right lateral hallux ingrown nail. She states it has been painful about a week. She denies any redness, drainage, swelling. This nail border has been an issue for her in the past. She understands she can have a permanent nail procedure done but is not wanting to do that today. She is requesting debridement of the nail to remove the painful portion. Review of Systems Medications Current Outpatient Medications: acetaminophen (Tylenol 8 Hour) 650 MG ER tablet, Take 650 mg by mouth every 8 (eight) hours if needed for mild pain Do not crush, chew, or split., Disp: , Rfl: amoxicillin (Amoxil) 250 MG capsule, Take 500 mg by mouth, Disp: , Rfl: diclofenac sodium (Voltaren) 1 % gel, Transdermal, Disp: , Rfl: meloxicam (Mobic) 15 MG tablet, Take 1 tablet by mouth in the morning., Disp: , Rfl: Multiple Vitamins-Minerals (Multi For Her 50+) tablet, as directed Orally, Disp: , Rfl: pantoprazole (ProtoNix) 40 MG EC tablet, 1 (one) time each day at the same time., Disp: , Rfl: rOPINIRole (Requip) 2 MG tablet, TAKE ONE-HALF (1/2) TABLET AT 4 P.M. THEN TAKE 1 FULL TABLET AT BEDTIME, Disp: 90 tablet, Rfl: 3 tiZANidine (Zanaflex) 4 MG tablet, TAKE ONE-HALF (1/2) TO ONE TABLET TWICE A DAY NEEDED FOR PAIN, Disp: , Rfl: zinc gluconate 50 MG tablet, 1 (one) time each day at the same time., Disp: , Rfl: Allergies Iodine, Iodinated contrast media, Sulfa antibiotics, and Latex Past Surgical History Past Surgical History: Procedure Laterality Date APPENDECTOMY BREAST CYST EXCISION Left CARPAL TUNNEL RELEASE Right 07/31/2019 Dr Burns FOOT GANGLION EXCISION Right 2014 OVARIAN CYST REMOVAL AR KNEE SCOPE,DIAGNOSTIC Right 07/2021 Dr Burns TONSILLECTOMY Family History Family History Problem Relation Name Age of Onset Esophageal cancer Mother Alejandrina Arthritis Mother Alejandrina Cancer Mother Alejandrina Other (bladder cancer) Father ANABEL Cancer Father ANABEL Breast cancer Sister CIRILO Stomach cancer Sister CIRILO Arthritis Sister CIRILO Stroke Paternal Grandfather Shad Cancer Mother's Sister DRU Stroke Mother's Sister DRU Cancer Sister Ericka Objective Physical Exam Constitutional: Appearance: Normal appearance. HENT: Head: Normocephalic and atraumatic. Cardiovascular: Comments: Pedal pulses: DP 2/4 bilateral, PT 2/4 bilateral. Skin temp is warm to Cool. Varicosities: absent Hair growth: present Pulmonary: Effort: Pulmonary effort is normal. Musculoskeletal: Right lower leg: No edema. Left lower leg: No edema. Comments: JOINT RANGE OF MOTION: ankle joint and subtalar joint ROM are normal and pain free. DEFORMITIES: Lesser toe contracture deformity 2-5 at MPJ and PIPJ, there is adductovarus noted at 4th and 5th digits b/l. PAIN: R distal lateral hallux nail MUSCLE STRENGTH4/5 for dorsiflexion, plantarflexion, inversion, eversion. Skin: General: Skin is warm and dry. Capillary Refill: Capillary refill takes 2 to 3 seconds. Findings: No bruising or erythema. Comments: SKIN FINDINGS: web spaces are clean/dry. Oval shaped blue/purple macule noted at R 5th met head dorsal lateral - pt reports this is her birthmark. texture, turgor, hair growth, within normal limits. Approximately 3.0 cm length scar oriented parallel to the fifth metatarsal noted overlying the lateral aspect of the dorsum of the foot. HYPERKERATOSIS:small callus noted HIPJ bilateral. Diffuse callus tissue at balls of both feet. NAIL PATHOLOGY: The lateral nail border of the R hallux isk incurvated and ingrowing at the distal corner. The distal lateral nail fold is locally inflamed. There is no erythema. There is no proximal streaking or foul odor. There is no drainage present. The nail is 4mm thick, yellow, incurvated with pain and pressure at the distal lateral halllux nail. Nails 2,3,4 b/l are 5mm thick, brown and yellow, brittle, dystrophic, and likely fungal. Nails 5 b/l are 3mm thick, discolored, dystrophic, elongated, with subungal debris Neurological: Mental Status: She is alert and oriented to person, place, and time. Comments: Light touch sensation intact Assessment/Plan ICD-10-CM 1. Ingrown nail L60.0 2. Pain of toe of right foot M79.674 3. Onychomycosis B35.1 4. Nail dystrophy L60.3 Patient was examined and evaluated. Again I discussed treatment options with the pt. Explained that since the distal aspect of the nail was the portion that is ingrown and painful, we could do a slant back procedure without anesthesia to remove the offending portion of nail. Pt agrees. We reviewed the other option of partial permanent nail avulsion with phenol. Pt states she will consider this and call to schedule this procedure if she chooses to proceed with it. Slant back was performed using small nail nipper. This proved to be effective in removing the offending portion of the nail. Discussed with pt the importance of tissue massage and taping nail fold away from nail plate as nail regrows to avoid another ingrown nail. Pt is pleased with how the nail feels and will call as needed for the next appointment This note was created with the assistance of a speech recognition program. While intending to generate a timely document that accurately reflects the content of the visit, no guarantee can be provided that every grammatical or spelling mistake has been or will be identified or corrected. Thank you for your understanding. Silvia Melton DPM documented in this encounter [facility] 04-17-2024 Note General Surgery Offi ce/Clinic Note Chief Complaint consultation for hernia HPI Staff 73 year old female presents on consultation from Delicia Gu for ventral hernia. Reports noting bulge approximately 3 weeks ago. Reports slight increase in size since first noted. Denies bulge being red. Reports occasional soreness. Denies nausea or vomiting. CT ABD completed 02/15/24 with ventral hernia containing fat. History of Present Illness 73 yo female with h/o hyperlipidemia, fibromyalgia, GERD, restless legs syndrome, referred for abd wall hernia; patient is s/p ct-guided bx of liver lesion in November, developed post bx hematoma that became infected, causing large epigastric abd wall abscess; this was drained by Dr Blanco at the bedside at [facility]; patient had wound care until area healed; noticed increase bulging in that area over the past month; no skin changes, no N/V or bowel changes; abd/pelvic ct scan with evidence of diastasis and 3 cm defect containing preperitoneal fat in subxiphoid area. on Meloxicam daily, no asa; no tobacco use. Review of Systems PHQ Score Initial Depression Screen Score: 0 SCORE ROS - Provider Constitutional: no fever, no sweats, no weight loss. Eyes: yes glasses, no blurred vision, no visual loss. ENMT: no dentures, no hoarseness, no swallowing difficulties, no hearing loss, no ear infection(s), no nose bleeds. Cardiovascular: normal blood pressure, no chest pain, regular heartbeat, no heart murmur. Respiratory: no shortness of breath, no cough, no asthma, no wheezing. Gastrointestinal: no nausea, no vomiting, no diarrhea, no constipation, no blood in stool, no change in bowel habits, no abdominal pain, no hepatitis. Genitourinary: no kidney stones, no urine infection, no dysuria. Musculoskeletal: no pain, no weakness. Skin: no changing moles, no rash, no skin lumps. Neurologic: no seizures, no epilepsy, no headache. Psychiatric: no emotional or psychiatric problem. Heme/Lymph: no bleeding problems, no anemia, no blood clots, no transfusions. Allergy/Immunologic: no swollen lymph nodes/glands, no IV drug abuse. Other: Additional ROS info: Except as noted in the above Review of Systems and in the History of Present Illness, all other systems have been reviewed and are negative or noncontributory. Physical Exam Vitals & Measurements HR: 66(Peripheral) RR: 16 BP: 130/83 HT: 65 in HT: 165.1 cm WT: 66.5 kg WT: 146.3 lb BMI: 24.4 HEENT: normal conjunctiva, sclera clear, no scleral icterus, EOM intact, PERRLA, oral mucosa moist without lesions. Neck: trachea midline, no mass, symmetric, no thyromegaly or nodules, no adenopathy Respiratory: lungs CTA, respirations non labored. Cardiovascular: regular rate and rhythm, no murmur, no pedal edema or varicosities. Gastrointestinal: soft, non distended, no tenderness, no masses, subxiphoid hernia, reducible, 3 cm defect, nontender, no skin changes, diastasis recti yes, no hepatosplenomegaly; normal bs Lymphatic: no cervical adenopathy, no supraclavicular adenopathy. Musculoskeletal: normal gait, digits and nails without infection, nodes, cyanosis, clubbing. Skin: no rashes, no lesions, no ulcers, no subcutaneous nodules, induration. Psychiatric/Neuro: oriented to time, place, person, judgement normal, affect appropriate for age, insight intact, no focal deficits. Tests: labs reviewed, x-rays reviewed, review of old records completed , Discussed surgical options, risks, and possible complications with patient. Assessment/Plan 1. Epigastric hernia (K43.9: Ventral hernia without obstruction or gangrene) caused by infected hematoma; recommend abd binder for now when up and with lifting/straining; no bowel involvement, and unlikely to develop this in that location; if increases or becomes symptomatic can discuss mesh repair; would wait at least several more months to decrease inflammation from previous infection; call with problems/questions. Follow-up No qualifying data available Problem List/Past Medical History Ongoing Chronic low back pain Epigastric hernia Fibromyalgia Gastroesophageal reflux disease without esophagitis History of basal cell carcinoma Hypercholesterolemia Iron deficiency anemia Irritable bowel syndrome Lesion of liver Leukocytosis Mixed anxiety and depressive disorder Mixed hyperlipidemia Restless legs Rosacea Tension-type headache Vitamin D deficiency Historical No qualifying data Procedure/Surgical History Incision and drainage of abdominal abscess (11/2023), Colonoscopy (11/14/2023), EGD - esophagogastroduodenoscopy (11/14/2023), removal of right foot ganglion cyst (12/11/2014), Appendectomy, Biopsy of liver, CTR - carpal tunnel release, Cyst of breast, Ovarian cystectomy, Repair of meniscus, Tonsillectomy. Medications Cymbalta, 30 mg, Oral, BID dicyclomine, 10 mg, Oral, TID, PRN Lipitor, 20 mg, Oral, Daily meloxicam 15 mg Tab, 15 mg= 1 tab(s), Oral, Daily Multiple Vitamins Tab, 1 tab(s), O (more content not included)... [facility] Comment on above: Result Comment: Elec tronically Signed By: JERSEY BOUCHER, Pankaj Soto\Date and Time Signed: 04/17/24 08:07 EDT 03-25-2024 Procedure note [facility] 10-04-2023 History of Present illness Narrative Associated Order(s): L Inj/Asp: R [...] AGO. MDP 02/2022, 02/2023 PHYSICAL THERAPY @ [facility] DID NOT TAKE MDP 02/2023 CURRENTLY DOING PT AT [facility], SOME RELIEF. SORENESS MEDIAL AND LATERAL. [...] develop for requiring urgent evaluation. Pavan Buckner BEHAVIORAL HEALTH DIRECTOR-CONVEYOR LOADER documented in this encounter [facility] 09-22-2023 History of Present illness Narrative Physical Therapy Physical Therapy Treatment [...] back to the number below. Physician Signature: __ Date: documented in this encounter [facility] Healthcare Evaluation + Plan note No data available for this section [facility] General [facility] [place] Evaluation note Diagnosis Balance disorder- Primary Arthritis of right knee [facility]* Diagnosis Primary osteoarthritis of right knee- Primary Chronic pain of right knee [facility]* Diagnosis Balance disorder- Primary Arthritis of right knee [facility] noteNo assessment [facility] Work Phone: Evaluation note* Diagnosis Ingrown nail- Primary Ingrowing nail Pain of toe of right foot Onychomycosis Dermatophytosis of nail Nail dystrophy Other specified disease of nail documented in this encounter [facility] Author Jimmy White [facility] November 14, 2023 12:24pm Note Date/Time November 14, 2023 12: 24pm [facility] [address] [place] [address] Gastroenterology H&P Signed Patient: Twila Ceballos MR#: [id number] : 1950 Acct:[id number] Age/Sex: 73 / F Adm Date: 4 Loc: Room: Type: [facility] Attending Dr: Jimmy White MD [...] signed by Jimmy White MD> 11/14/23 1224 [facility] Work Phone: Hospital Discharge instructions No data available for this section [facility] Surgery [place] Progress note No data available for this section [facility] [place] Summary Purpose Family History No Family History [...] Procedures L Inj/Asp: R knee Pavan Buckner, TIE [place] [address] Referral ID Status Reason Start Date Expiration Date V isits Requested Visits Authorized [id number] Pending Review 10/04/2023 04/01/2024 1 1 Chief Complaint and Reason for Visit Chief Complaint liver mass Chief Complaint liver mass elevated white blood cells, anemia, liver mass. elevated white blood cells, anemia, liver mass. Additional Source Comments INFORMATION SOURCE (unrecogn ized section and content) DATE CREATED AUTHOR 06/24/2021 [facility] DATE CREATED AUTHOR AUTHOR'S ORGANIZ ATION 11/24/2023 [facility] DATE CREATED AUTHOR AUTHOR'S ORGANIZ ATION 04/18/2024 [facility] DATE CREATED AUTHOR AUTHOR'S ORGANIZ ATION 06/22/2024 [facility] DATE CREATED AUTHOR AUTHOR'S ORGANIZ ATION 08/22/2024 [facility] dical Specialists [employer] Care Teams (unrecognized sec tion and content) Sandstone Inspector Repairer Relationship Specialty Start Date End Date Juana Acharya MD [address] [place] [address] PCP - General Family Medicine 08/31/23 Shantell Le NP [address] [place] [address] Nurse Practitioner Family Medicine 08/31/23 Sandstone Inspector Repairer Relationship Specialty Start Date End Date Juana Acharya MD [address] [facility] [place] [address] PCP - General Family Medicine 08/31/23 Shantell Le NP [address] [facility] [place] [address] Nurse Practitioner Family Medicine 08/31/23 Sandstone Inspector Repairer Relationship Specialty Start Date End Date Juana Acharya MD [address] [facility] [place] [address] PCP - General Family Medicine 08/31/23 Shantell Le NP [address] [place] [address] Nurse Practitioner Family Medicine 08/31/23 Sandstone Inspector Repairer Relationship Specialty Start Date End Date Juana Acharya MD [address] [place] [address] PCP - General Family Medicine 08/31/23 Shantell Le NP [address] [place] [address] Nurse Practitioner Family Medicine 08/31/23 Sandstone Inspector Repairer Relationship Specialty Start Date End Date Juana Acharya MD [address] [place] [address] PCP - General Family Medicine 08/31/23 Shantell Le NP [address] [place] [address] Nurse Practitioner Family Medicine 08/31/23 Sandstone Inspector Repairer Relationship Specialty Start Date End Date Juana Acharya MD [address] [place] [address] PCP - General Family Medicine 08/31/23 Shantell Le NP [address] [place] [address] Nurse Practitioner Family Medicine 08/31/23 Sandstone Inspector Repairer Relationship Specialty Start Date End Date Juana Acharya MD [address] [place] [address] PCP - General Family Medicine 08/31/23 Shantell Le NP [address] [place] [address] Nurse Practitioner Family Medicine 08/31/23 Team Status: Active Member Role Status Allan Camara MD Primary Care Provider Active Team Status: Inactive Member Role Status Allan Varela MD Attending Provider Active St art: November 11, 2023 End: November 11, 2023 Gopi Camara MD Primary Care Provider Active Start: November 11, 2023 End: November 11, 2023 Team Status: Inactive Member Role Status Allan Camara MD Primary Care Provider Active Start: November 14, 2023 End: November 14, 2023 Jimmy White MD Attending Provider Active S tart: November 14, 2023 End: November 14, 2023 Team Status: Active Member Role Status Allan Camara MD Primary Care Provider Active Start: November 14, 2023 Jimmy White MD Attending Provider, Other Provider Active Start: November 14, 2023 Sandstone Inspector Repairer Relationship Specialty Start Date End Date Unallocated, Morgan Hanson MD [facility] [place] [address] PCP - General Family Medicine 10/28/23 Shantell Le NP Nurse Practitioner Family Medicine 08/31/23 Sandstone Inspector Repairer Relationship Specialty Start Date End Date Unallocated, Morgan Hanson MD [facility] [address] [facility] [place] [address] PCP - General Family Medicine 10/28/23 Shantell Le NP Nurse Practitioner Family Medicine 08/31/23 Reason for Visit (unrecogniz ed section and content) Specialty Diagnoses / Procedures Referred By Contsarina t Referred To Contact Physical Therapy Diagnoses Balance disorder Arthritis of right knee Procedures AR OFFICE/OUTPATIENT NEW HIGH MDM 60 MINUTES Shantell Le NP [address] [place] [address] Shayla Goldman, PT [address] [facility] [address] [place] [address] Referral ID Status Reason Start Date Expiration Date Visits Requested Visits Authorized [id number] Authorized Specialty Services Required 08/31/2023 02/27/2024 30 30 Reason Onset Date Comments Cx PT today 09/29/2023 She called silvia jalloh an unexpectant request came up and unable to make PT today; she confirmed 10/04. Reason Comments Pain Reason Comments Ingrown Toenail Pt is here today for an painful ingrown nail Rt lateral side hallux Goals (unrecognized section and content) Goals may be documented in a n alternate section No data available for this section FOR RECORDS PERTAINING TO PATIENTS WHO [...] BE BASED ON THE PRIMARY CLINICAL RECORDS. [facility] [employer] [facility] provides no warranty or guarantee of the accuracy or completeness of information in this document.
--- NOTE | 2024-09-03 15:56 | PE_ITS ---
[address] [address] Patient Name: DIVYA ARRIAGA MRN: [id number] date: 1950 Sex: F Assigned Patient Location: PETCT Current Patient Location: PETCT Accession/Order Number: [id number] Exam Date: 09/03/2024 14:59 Report Date: 09/06/2024 16:59 At the request of: AYESHA CAMPBELL Procedure: PET skull to mid thigh NUCLEAR MEDICINE PET/CT HISTORY: Neoplasm of unspecified behavior of the digestive system; basal cell carcinoma of skin COMPARISON: PET/CT 03/19/2024. METHOD: 15.59 mCi of F-18 FDG was administered intravenously. Blood sugar level at the time of the injection: 99. At 51 minutes from injection, PET images were obtained from the skull base through the midthigh levels in the axial plane. Reformatted images were performed in the sagittal and coronal planes. A low-dose, noncontrast CT scan was performed for attenuation correction and anatomical localization. A low dose, noncontrast and nondiagnostic CT scan was performed for attenuation correction and anatomic localization. Mediastinal blood pool SUV max 2.5 using the patient's body weight as the normalization method. FINDINGS: HEAD AND NECK: There are no metabolically active lymph nodes in the neck. CHEST: There are less and less numerous metabolically active bilateral mediastinal and hilar lymph nodes. The major airways are patent. There is no pericardial effusion. There is no evidence of abnormal metabolic uptake in the esophagus. There is no evidence of abnormal metabolic uptake in the lung parenchyma. There are no pleural effusions. There is no pneumothorax. ABDOMEN AND PELVIS: There is no evidence of abnormal metabolic activity in the liver or adrenal glands. There is no evidence of abnormal metabolic active lymph nodes in the abdomen or pelvis. There is no free fluid. There is a smaller focus increased metabolic activity in the sigmoid colon(or between the rectum and sigmoid colon) measuring 1.3 x 0.7 cm with a maximum SUV of 16.1, previously 12.9. There is a large umbilical hernia with large bowel loops that are nonobstructed. There are scattered diverticuli. MUSCULOSKELETAL: There is no evidence of abnormal metabolically active bony lesions. PET/PET skull to mid thigh IMPRESSION: Smaller focal metabolic uptake in the sigmoid colon which may be related to chronic fistula or smaller carcinoma. Smaller less numerous metabolically active mediastinal or hilar lymph nodes. Differential diagnosis includes granulomatous disease, sarcoidosis, metastatic disease and lymphoma. No evidence of abnormal metabolic uptake in the liver or adrenal glands. Large umbilical hernia with large bowel loops that are nonobstructed. Electronically authenticated by: STANISLAW EVERETT Date: 09/06/2024 16:59
== END 2024-09-03 14:48 | disposition home or self-care (01) ==
LOC: PETCT 14:47
PROVIDERS: PCP Nurse Practitioner Family; Visit Provider Internal Medicine Hematology & Oncology
DX: D72.829 Elevated white blood cell count, unspecified (principal); D64.9 Anemia, unspecified; D49.0 Neoplasm of unspecified behavior of digestive system; C44.319 Basal cell carcinoma of skin of other parts of face; K42.9 Umbilical hernia without obstruction or gangrene
CPT/HCPCS: 78815; A9552

== ENCOUNTER 2024-09-11 07:39 | Outpatient (RCR) | payer MEDICARE, SELFPAY ==
[2024-09-11 12:58] LABS: Basophils Absolute Auto 0.1 10^3/uL (0.0-0.1); Basophils Percent Auto 1.5 % (0.2-2.0); Eosinophils Absolute Auto 0.4 10^3/uL (0.0-0.7); Eosinophils Percent Auto 8.1 % (0.9-7.0); Hematocrit 46.8 % (36.0-48.0); Hemoglobin 15.6 g/dL (12.0-16.0); Immature Granulocytes Abs Auto 0.01 10^3/uL (0.00-0.03); Immature Granulocytes Pct Auto 0.2 % (0.0-0.5); Lymphocytes Absolute Auto 1.4 10^3/uL (1.2-3.8); Lymphocytes Percent Auto 29.2 % (20.5-60.0); Mean Corpuscular HGB Conc 33.3 g/dL (29.9-35.2); Mean Corpuscular Volume 96.1 fL (81.0-99.0); Mean Platelet Volume 9.1 fL (9.5-13.5); Monocytes Absolute Auto 0.6 10^3/uL (0.3-0.8); Monocytes Percent Auto 12.9 % (1.7-12.0); Neutrophils Absolute Auto 2.3 10^3/uL (1.4-6.5); Neutrophils Percent Auto 48.1 % (43.0-75.0); Platelet Count 246 10^3/uL (150-450); Red Blood Count 4.87 10^6/uL (4.20-5.40); White Blood Count 4.7 10^3/uL (4.0-11.0)
[2024-09-11 13:13] LABS: Alanine Aminotransferase 27 U/L (14-59); Albumin Globulin Ratio 1.1; Albumin Level 3.6 g/dL (3.4-5.0); Alkaline Phosphatase 101 U/L (46-116); Aspartate Amino Transferase 23 U/L (15-37); BUN Creatinine Ratio 22.7; Bilirubin Total 0.7 mg/dL (0.2-1.0); Carbon Dioxide 28.1 mmol/L (21.0-32.0); Chloride 105 mmol/L (98-107); Estimated GFR (African America >60 (>=60 mL/min/1.73m^2); Estimated GFR (Non-African Ame >60 (>=60 mL/min/1.73m^2); Globulin 3.4 g/dL; Glucose 93 mg/dL (74-106); Lactate Dehydrogenase 220 U/L (81-234); Potassium 4.1 mmol/L (3.5-5.1); Sodium 139 mmol/L (136-145)
== END 2024-09-12 11:08 | disposition home or self-care (01) ==
LOC: HEMC 07:39
PROVIDERS: PCP Nurse Practitioner Family; Visit Provider Internal Medicine Hematology & Oncology
DX: D72.829 Elevated white blood cell count, unspecified (principal); D64.9 Anemia, unspecified; C44.319 Basal cell carcinoma of skin of other parts of face; K76.9 Liver disease, unspecified; Z87.891 Personal history of nicotine dependence; Z80.0 Family history of malignant neoplasm of digestive organs; Z80.3 Family history of malignant neoplasm of breast; Z80.42 Family history of malignant neoplasm of prostate; Z80.52 Family history of malignant neoplasm of bladder
CPT/HCPCS: 80053; 83615; 85025; G0463

== ENCOUNTER 2024-11-29 15:16 | Outpatient (REF) | payer MEDICARE, SELFPAY ==
[2024-11-29 16:30] LABS: C. Difficile PCR NEGATIVE
== END 2024-11-29 15:17 | disposition home or self-care (01) ==
LOC: LAB 15:16
PROVIDERS: PCP Nurse Practitioner Family; Visit Provider Family Medicine
DX: R19.7 Diarrhea, unspecified (principal)
CPT/HCPCS: 87493